=== PATIENT | male | born 1935 | race Caucasian/White ===

== ENCOUNTER → 2017-09-30 10:27 | Outpatient (CLI) | payer MEDICARE, BC, SELFPAY | PROVIDERS: Visit Provider Urology | DX: N40.0 Benign prostatic hyperplasia without lower urinary tract symptoms (principal) | CPT/HCPCS: 36415; 84153; G0103 ==

== ENCOUNTER → 2017-12-09 08:22 | Outpatient (CLI) | payer MEDICARE, BC, SELFPAY ==
--- NOTE | 2017-12-09 08:25 | US_ITS ---
US urinary bladder CLINICAL INDICATION: ITS.REASON: URINARY RETENTION ORDERING PHYSICIAN: Nina Hobbs MD PATIENT AGE: 82 years Comparison: None FINDINGS: Look for urinary bladder volume is 441 mL's. There is persistent rounded area of isoechogenicity along the lower aspect the urinary bladder on the left. This may represent a urinary bladder mass or an enlarged prostate compressing upon the infra aspect of the urinary bladder . The prostate is enlarged. The post void urinary bladder volume is 12 mL. IMPRESSION: 1. No significant postvoid residual urine. 2. There is a soft tissue mass along the lower aspect of urinary bladder on the left measuring approximately 4 x 4 centimeters. This is contiguous with an enlarged prostate and may represent compression of the urinary bladder from an enlarged prostate or prostate mass. A mass within the urinary bladder is also a consideration.
== END ==
PROVIDERS: Family Provider Family Medicine; PCP Family Medicine; Visit Provider Family Medicine
DX: N40.1 Benign prostatic hyperplasia with lower urinary tract symptoms (principal)
CPT/HCPCS: 76857

== ENCOUNTER → 2018-08-23 11:20 | Outpatient (CLI) | payer MEDICARE, BC, SELFPAY ==
--- NOTE | 2018-08-23 11:33 | XR_ITS ---
XR chest 2V HISTORY: Shortness of breath ITS.REASON: SOB ORDERING PHYSICIAN: Lashonda Barahona APRN PATIENT AGE: 83 years COMPARISON: 02/20/2014 FINDINGS: Prior CABG. Cardiac pacemaker device is present with biventricular lead, AICD, and a right atrial lead. Normal heart size. Lungs are clear. No acute bony findings. IMPRESSION: Postsurgical changes with pacemaker present, no acute finding
== END ==
PROVIDERS: PCP Family Medicine; Visit Provider Nurse Practitioner
DX: R06.02 Shortness of breath (principal)
CPT/HCPCS: 71046; 93005

== ENCOUNTER → 2018-08-26 13:51 | Outpatient (CLI) | payer MEDICARE, BC, SELFPAY | PROVIDERS: PCP Family Medicine; Visit Provider Family Medicine | DX: R06.02 Shortness of breath (principal) | CPT/HCPCS: 93225; 93226 ==

== ENCOUNTER 2018-10-01 05:26 | Emergency (ER) | payer MEDICARE, BC, SELFPAY ==
[2018-10-01 05:35] VITALS: BP 122/55; PULSE 50; RESP 16; TEMP 36.9; O2SAT 97; BMI 25.7
[2018-10-01 06:02] LABS: Basophils % 0.3 % (0.1-2.0); Eosinophils # 0.1 K/mm3 (0.0-0.4); Eosinophils % 1.6 % (0.1-12.0); Hematocrit 38.2 % (42.0-52.0); Hemoglobin 12.6 g/dL (14.1-18.0); Lymphocytes # 1.1 K/mm3 (0.7-4.5); Lymphocytes % 12.1 % (10-50); Mean Corpuscular Hemoglobin 27.8 pg (27.0-31.2); Mean Corpuscular Volume 84.5 fl (80-94); Monocytes # 0.7 K/mm3 (0.1-1.0); Monocytes % 7.7 % (1.7-9.3); Neutrophils # 7.1 K/mm3 (1.8-7.8); Neutrophils % 78.3 % (37.0-80.0); Platelet Count 151 K/mm3 (142-424); Red Blood Count 4.52 M/mm3 (4.60-6.20); Red Cell Distribution Width 13.8 % (11.5-17.5); White Blood Count 9.1 K/mm3 (4.8-10.8)
[2018-10-01 06:04] LABS: Microscopic, Urine URINE MICROSCOPIC (MICROSCOPIC)
[2018-10-01 06:07] LABS: Appearance,Urine CLOUDY (Clear); Bilirubin,Urine Negative (Negative); Blood, Urine 3+ (Negative); Color,Urine YELLOW (Yellow); Glucose,Urine (UA) Negative (Negative); Ketones,Urine Negative (Negative); Leukocyte Esterase,Urine 3+ (Negative); Nitrate,Urine POSITIVE (Negative); Protein,Urine 2+ (Negative); Urobilinogen,Urine 0.2 EU/dl (0.2)
[2018-10-01 06:14] LABS: Bacteria,Urine 4+ /lpf; RBC,Urine 20-50 #/hpf (0-3); WBC,Urine TNTC #/hpf (0-3)
[2018-10-01 06:15] LABS: Alanine Aminotransferase 22 U/L (12-78); Albumin Level 3.3 gm/dL (3.4-5.0); Albumin/Globulin Ratio 1.1 (1.1-1.8); Alkaline Phosphatase 83 U/L (46-116); Anion Gap 15.6 mEq/L (5-15); Aspartate Amino Transferase 19 U/L (15-37); Bilirubin,Total 1.1 mg/dL (0.2-1.0); Blood Urea Nitrogen 18 mg/dL (7-18); Calcium 8.9 mg/dL (8.5-10.1); Carbon Dioxide 22 mmol/L (21.0-32.0); Chloride 104 mmol/L (98-107); Creatinine Clearance Estimated 60 mL/min (50-200); Creatinine,Serum 1.14 mg/dL (0.70-1.30); Estimated Glomerular Filt Rate 61 ml/min (>60); GFR (African American) 74 ML/MIN (>60); Glucose 122 mg/dL (74-106); Potassium 3.6 mmoL/L (3.5-5.1); Sodium 138 mmol/L (136-145); Total Protein,Serum 6.3 gm/dL (6.4-8.2)
--- NOTE | 2018-10-01 06:38 | HMH.EDUROGM ---
ED Disposition Clinical Impression: UTI (urinary tract infection) Qualifiers: Urinary tract infection type: acute cystitis Hematuria presence: without hematuria Qualified Code(s): N30.00 - Acute cystitis without hematuria Disposition: Home, Self-Care Condition on Discharge: Good Instructions: DI for Urinary Tract Infection (UTI) Additional Instructions: use meds and call pcp for culture results wednesday Prescriptions: cephALEXin [Keflex 500mg Cap] 500 mg PO TID #30 cap Referrals: Nina Hobbs MD [Primary Care Provider] - - Critical Care Critical Care Time: No Attestation: On 10/01/18, the high probability of a clinically significant, sudden or life threatening deterioration of the following system(s) required my full and direct attention, intervention and personal management. The time I documented below is in addition to time spent performing reported procedures but includes the following listed in this critical care notation. Medical Decision Making - Medical Records Medical records reviewed: Yes: I reviewed the patient's medical records. - Caio Inquiry Pt receiving controlled substance: No Vital Signs: 10/01/18 05:35 Temperature 98.4 F Temperature Source Oral Pulse Rate [Right] 50 L Respiratory Rate 16 Blood Pressure [Right Arm] 122/55 L Blood Pressure Mean [Right Arm] 77 Blood Pressure Source [Right Arm] Automatic Cuff Blood Pressure Position [Right Arm] Sitting 02 Sat by Pulse Oximetry 97 Oxygen Delivery Method Room Air - Lab Data Lab results reviewed: Yes: I reviewed the patient's lab results. Lab Results 10/01/18 05:50: WBC 9.1, RBC 4.52 L, Hgb 12.6 L, Hct 38.2 L, MCV 84.5, MCH 27.8, MCHC 33.0, RDW 13.8, Plt Count 151, MPV 8.0, Neut % (Auto) 78.3, Lymph % (Auto) 12.1, [place] % (Auto) 7.7, Eos % (Auto) 1.6, Baso % (Auto) 0.3, Neut # (Auto) 7.1, Lymph # (Auto) 1.1, [place] # (Auto) 0.7, Eos # (Auto) 0.1, Baso # (Auto) 0.0 10/01/18 05:50: Sodium 138, Potassium 3.6, Chloride 104, Carbon Dioxide 22, Anion Gap 15.6 H, BUN 18, Creatinine 1.14, Estimated Creat Clear 60, Estimated GFR 61, Est GFR ( Amer) 74, Glucose 122 H, Calcium 8.9, Total Bilirubin 1.1 H, AST 19, ALT 22, Alkaline Phosphatase 83, Total Protein 6.3 L, Albumin 3.3 L, Globulin 3.0, Albumin/Globulin Ratio 1.1 10/01/18 05:55: Urine Color Yellow, Urine Appearance Cloudy, Urine pH 6.0, Ur Specific [place] 1.010, Urine Protein 2+, Urine Glucose (UA) Negative, Urine Ketones Negative, Urine Blood 3+, Urine Nitrate Positive, Urine Bilirubin Negative, Urine Urobilinogen 0.2, Ur Leukocyte Esterase 3+ A, Urine RBC 20-50, Urine WBC Tntc, Urine Bacteria 4+ Result diagrams: 10/01/18 05:50 10/01/18 05:50 Orders (Tests/Meds): ED MEDICATIONS Generic Name Dose Route Start Last Admin Trade Name Freq PRN Reason Stop Dose Admin Sodium Chloride 1,000 mls @ 999 mls/hr 10/01/18 05:45 10/01/18 06:06 Sod Chlor 0.9% 1000ml Bag IV 10/01/18 06:45 999 mls/hr .Q1H1M SHAY Administration Ceftriaxone Sodium 1 gm/ 50 mls @ 100 mls/hr 10/01/18 06:25 10/01/18 06:26 Sodium Chloride IV 10/01/18 06:54 100 mls/hr ONCE ONE Administration Protocol ORDERS Category Date Time Status Urine Culture Stat Micro 10/01/18 05:55 Received Male Urogenital HPI - General Chief complaint: Urogenital-Male Stated complaint: difficulty urinating with burning Time Seen by Provider: 10/01/18 05:45 Mode of Arrival: Ambulatory Source of Information: Patient, Medical Record Limitations: No Limitations Description of Symptoms (Recalled from ER Triage Doc. by RN): Pt c/o decreased urine output and burning with urination - History of Present Illness HPI Narrative: pain with urination - no gross hematuria MD Complaint: dysuria Onset (ago): hour(s) Severity: moderate Reports: denies other symptoms - Related Data Home Medications Medication Instructions Recorded Confirmed meclizine 12.5 mg tablet 12.5 mg PO BID PRN tab 09/30
--- NOTE | 2018-10-01 06:41 | ED_ITS ---
ED Disposition Clinical Impression: UTI (urinary tract infection) Qualifiers: Urinary tract infection type: acute cystitis Hematuria presence: without hematuria Qualified Code(s): N30.00 - Acute cystitis without hematuria Disposition: Home, Self-Care Condition on Discharge: Good Instructions: DI for Urinary Tract Infection (UTI) Additional Instructions: use meds and call pcp for culture results wednesday Prescriptions: cephALEXin [Keflex 500mg Cap] 500 mg PO TID #30 cap Referrals: Nina Hobbs MD [Primary Care Provider] - - Critical Care Critical Care Time: No Attestation: On 10/01/18, the high probability of a clinically significant, sudden or life threatening deterioration of the following system(s) required my full and direct attention, intervention and personal management. The time I documented below is in addition to time spent performing reported procedures but includes the following listed in this critical care notation. Medical Decision Making - Medical Records Medical records reviewed: Yes: I reviewed the patient's medical records. - Caio Inquiry Pt receiving controlled substance: No Vital Signs: 10/01/18 05:35 Temperature 98.4 F Temperature Source Oral Pulse Rate [Right] 50 L Respiratory Rate 16 Blood Pressure [Right Arm] 122/55 L Blood Pressure Mean [Right Arm] 77 Blood Pressure Source [Right Arm] Automatic Cuff Blood Pressure Position [Right Arm] Sitting 02 Sat by Pulse Oximetry 97 Oxygen Delivery Method Room Air - Lab Data Lab results reviewed: Yes: I reviewed the patient's lab results. Lab Results 10/01/18 05:50: WBC 9.1, RBC 4.52 L, Hgb 12.6 L, Hct 38.2 L, MCV 84.5, MCH 27.8, MCHC 33.0, RDW 13.8, Plt Count 151, MPV 8.0, Neut % (Auto) 78.3, Lymph % (Auto) 12.1, [place] % (Auto) 7.7, Eos % (Auto) 1.6, Baso % (Auto) 0.3, Neut # (Auto) 7.1, Lymph # (Auto) 1.1, [place] # (Auto) 0.7, Eos # (Auto) 0.1, Baso # (Auto) 0.0 10/01/18 05:50: Sodium 138, Potassium 3.6, Chloride 104, Carbon Dioxide 22, Anion Gap 15.6 H, BUN 18, Creatinine 1.14, Estimated Creat Clear 60, Estimated GFR 61, Est GFR ( Amer) 74, Glucose 122 H, Calcium 8.9, Total Bilirubin 1.1 H, AST 19, ALT 22, Alkaline Phosphatase 83, Total Protein 6.3 L, Albumin 3.3 L, Globulin 3.0, Albumin/Globulin Ratio 1.1 10/01/18 05:55: Urine Color Yellow, Urine Appearance Cloudy, Urine pH 6.0, Ur Specific [place] 1.010, Urine Protein 2+, Urine Glucose (UA) Negative, Urine Ketones Negative, Urine Blood 3+, Urine Nitrate Positive, Urine Bilirubin Negative, Urine Urobilinogen 0.2, Ur Leukocyte Esterase 3+ A, Urine RBC 20-50, Urine WBC Tntc, Urine Bacteria 4+ Result diagrams: 10/01/18 05:50 10/01/18 05:50 Orders (Tests/Meds): ED MEDICATIONS Generic Name Dose Route Start Last Admin Trade Name Freq PRN Reason Stop Dose Admin Sodium Chloride 1,000 mls @ 999 mls/hr 10/01/18 05:45 10/01/18 06:06 Sod Chlor 0.9% 1000ml Bag IV 10/01/18 06:45 999 mls/hr .Q1H1M SHAY Administration Ceftriaxone Sodium 1 gm/ 50 mls @ 100 mls/hr 10/01/18 06:25 10/01/18 06:26 Sodium Chloride IV 10/01/18 06:54 100 mls/hr ONCE ONE Administration Protocol ORDERS Category Date Time Status Urin
[2018-10-01 06:47] VITALS: BP 128/56; PULSE 52; RESP 14; TEMP 36.9; O2SAT 97
== END 2018-10-01 07:03 | disposition home or self-care (01) ==
PROVIDERS: Emergency Provider Emergency Medicine; PCP Family Medicine
DX: N30.01 Acute cystitis with hematuria (principal); I25.10 Atherosclerotic heart disease of native coronary artery without angina pectoris; Z95.0 Presence of cardiac pacemaker
CPT/HCPCS: 80053; 81001; 85025; 87086; 87088; 87186; 96365; 96367; 99283

== ENCOUNTER 2018-10-05 21:38 | Outpatient (CLI) | payer MEDICARE, BC, SELFPAY ==
[2018-10-05 22:10] VITALS: BP 140/101; PULSE 56; RESP 19; TEMP 36.4; O2SAT 97
--- NOTE | 2018-10-05 22:50 | PC.NURSE ---
#16 Leyva cath anchored per Dr. Vu.
[2018-10-05 23:15] VITALS: BP 142/72; PULSE 72; RESP 16; TEMP 36.8; O2SAT 97
[2018-10-05 23:19] VITALS: BMI 59.3
[2018-10-05 23:33] LABS: Microscopic, Urine URINE MICROSCOPIC (MICROSCOPIC)
[2018-10-05 23:35] LABS: Appearance,Urine CLEAR (Clear); Bilirubin,Urine Negative (Negative); Blood, Urine 3+ (Negative); Color,Urine YELLOW (Yellow); Glucose,Urine (UA) Negative (Negative); Ketones,Urine Negative (Negative); Leukocyte Esterase,Urine 1+ (Negative); Nitrate,Urine Negative (Negative); Protein,Urine Negative (Negative); Urobilinogen,Urine 0.2 EU/dl (0.2)
[2018-10-05 23:44] LABS: Amorphous Sediment,Urine Trace /lpf; RBC,Urine 50-100 #/hpf (0-3)
== END 2018-10-05 23:19 | disposition home or self-care (01) ==
LOC: ER 22:35 → INF 23:53
PROVIDERS: PCP Family Medicine; Visit Provider Emergency Medicine
DX: R39.9 Unspecified symptoms and signs involving the genitourinary system (principal)
CPT/HCPCS: 81001; 87086; G0463

== ENCOUNTER 2019-09-09 07:45 | Emergency (ER) | payer MEDICARE, BC, SELFPAY ==
[2019-09-09 07:53] VITALS: BP 134/70; PULSE 70; RESP 16; TEMP 36.5; O2SAT 98; BMI 25.7
--- NOTE | 2019-09-09 08:02 | HMH.EDGENADL ---
ED Disposition Clinical Impression: UTI (urinary tract infection) Qualifiers: Urinary tract infection type: acute cystitis Hematuria presence: with hematuria Qualified Code(s): N30.01 - Acute cystitis with hematuria Disposition: Home, Self-Care Condition on Discharge: Good Instructions: DI for Urinary Tract Infection (UTI), DI for Hematuria Additional Instructions: Omnicef as prescribed. Follow-up with Dr. Higgins in the office, call Wednesday to schedule appointment. Additional instructions for URINARY TRACT INFECTION: See your physician next week for follow up and culture results. Return immediately if you have an uncontrollable fever greater than 102 degrees, severe back or abdominal pain, inability to urinate, or repetitive vomiting. Prescriptions: Cefdinir [Omnicef 300mg Capsule] 300 mg PO BID #20 cap Transmission Status: Pending to [facility] Referrals: Nina Hobbs MD [Primary Care Provider] - - Critical Care Critical Care Time: No Attestation: On 09/09/19, the high probability of a clinically significant, sudden or life threatening deterioration of the following system(s) required my full and direct attention, intervention and personal management. The time I documented below is in addition to time spent performing reported procedures but includes the following listed in this critical care notation. Medical Decision Making - Medical Records Medical records reviewed: Yes: I reviewed the patient's medical records. MR Comment: Prior urine C/S results reviewed. Most recent office visit note from Dr. Higgins reviewed. Reviewed the last abdomen/pelvic CT result September 2018. - Caio Inquiry Pt receiving controlled substance: No Vital Signs: 09/09/19 07:53 Temperature 97.7 F Temperature Source Oral Pulse Rate [Left Radial] 70 Respiratory Rate 16 Blood Pressure [Right Arm] 134/70 Blood Pressure Mean [Right Arm] 91 Blood Pressure Position [Right Arm] Sitting 02 Sat by Pulse Oximetry 98 Oxygen Delivery Method Room Air - Lab Data Lab results reviewed: Yes: I reviewed the patient's lab results. Lab Results 09/09/19 07:55: Urine Color [place], Urine Appearance Sl cloudy, Urine pH 5.5, Ur Specific [place] 1.025, Urine Protein 2+, Urine Glucose (UA) Negative, Urine Ketones Negative, Urine Blood 3+, Urine Nitrate Positive, Urine Bilirubin Negative, Urine Urobilinogen 0.2, Ur Leukocyte Esterase Trace, Urine RBC 20-50, Urine WBC 5-10, Ur Squamous Epith Cells Occasional, Urine Bacteria 2+ 09/09/19 08:16: WBC 5.8, RBC 4.68, Hgb 14.1, Hct 41.6 L, MCV 88.9, MCH 30.2, MCHC 34.0, RDW 14.2, Plt Count 141 L, MPV 7.9, Neut % (Auto) 68.0, Lymph % (Auto) 23.4, [place] % (Auto) 5.7, Eos % (Auto) 1.7, Baso % (Auto) 1.2, Neut # (Auto) 3.9, Lymph # (Auto) 1.4, [place] # (Auto) 0.3, Eos # (Auto) 0.1, Baso # (Auto) 0.1 09/09/19 08:16: PT 22.6 H, INR 2.26 H 09/09/19 08:16: Sodium 138, Potassium 4.1, Chloride 109 H, Carbon Dioxide 24, Anion Gap 9.1, BUN 17, Creatinine 0.90, Estimated Creat Clear 67, Estimated GFR 80, Est GFR ( Amer) 97, Glucose 95, Calcium 9.4 Result diagrams: 09/09/19 08:16 09/09/19 08:16 Orders (Tests/Meds): ED MEDICATIONS Discontinued Medications Generic Name Dose Route Start Last Admin Trade Name [place] PRN Reason Stop Dose Admin Ceftriaxone Sodium 1 gm/ 50 mls @ 100 mls/hr 09/09/19 08:29 09/09/19 08:34 Sodium Chloride IV 09/09/19 08:58 100 mls/hr ONCE ONE Administration Protocol ORDERS Category Date Time Status Urine Culture Stat Micro 09/09/19 07:55 Received General Adult HPI - General Chief complaint: Urogenital-Male Stated complaint: kidney problems Time Seen by Provider: 09/09/19 08:02 Mode of Arrival: Ambulatory Limitations: No Limitations Description of Symptoms (Recalled from ER Triage Doc. by RN): to ed per pvt car with c/o burning with urination, lower back pain, urinary frequency, and hematuria starting yesterday. denies fever, chills, naus
[2019-09-09 08:05] LABS: Microscopic, Urine URINE MICROSCOPIC (MICROSCOPIC)
[2019-09-09 08:08] LABS: Appearance,Urine SL CLOUDY (Clear); Blood, Urine 3+ (Negative); Color,Urine ORANGE (Yellow); Glucose,Urine (UA) Negative (Negative); Ketones,Urine Negative (Negative); Leukocyte Esterase,Urine TRACE (Negative); Nitrate,Urine POSITIVE (Negative); PH,Urine 5.5 (5.0-8.5); Protein,Urine 2+ (Negative); Specific Gravity, Urine 1.025 (1.005-1.030); Urobilinogen,Urine 0.2 EU/dl (0.2)
[2019-09-09 08:20] LABS: Bilirubin,Urine Negative (Negative)
[2019-09-09 08:21] LABS: Bacteria,Urine 2+ /lpf; RBC,Urine 20-50 #/hpf (0-3); Squamous Epithelial Cell,Urine Occasional #/hpf (0-5)
[2019-09-09 08:30] LABS: Chloride 109 mmol/L (98-107); Potassium 4.1 mmoL/L (3.5-5.1); Sodium 138 mmol/L (136-145)
[2019-09-09 08:32] LABS: Basophils # 0.1 K/mm3 (0-0.2); Basophils % 1.2 % (0.1-2.0); Eosinophils # 0.1 K/mm3 (0.0-0.4); Eosinophils % 1.7 % (0.1-12.0); Hematocrit 41.6 % (42.0-52.0); Hemoglobin 14.1 g/dL (14.1-18.0); Lymphocytes # 1.4 K/mm3 (0.7-4.5); Lymphocytes % 23.4 % (10-50); Mean Corpuscular Hemoglobin 30.2 pg (27.0-31.2); Mean Corpuscular Volume 88.9 fl (80-94); Mean Platelet Volume 7.9 fl (7.4-10.4); Monocytes # 0.3 K/mm3 (0.1-1.0); Monocytes % 5.7 % (1.7-9.3); Neutrophils # 3.9 K/mm3 (1.8-7.8); Platelet Count 141 K/mm3 (142-424); Red Blood Count 4.68 M/mm3 (4.60-6.20); Red Cell Distribution Width 14.2 % (11.5-17.5); White Blood Count 5.8 K/mm3 (4.8-10.8)
[2019-09-09 08:33] LABS: Blood Urea Nitrogen 17 mg/dl (9-20); Creatinine Clearance Estimated 67 mL/min (50-200); Estimated Glomerular Filt Rate 80 ml/min (>60); GFR (African American) 97 ML/MIN (>60)
[2019-09-09 08:34] LABS: Anion Gap 9.1 mEq/L (5-15); Calcium 9.4 mg/dl (8.4-10.2); Carbon Dioxide 24 mmol/L (22.0-30.0); Glucose 95 mg/dl (74-100); INR 2.26 (0.9-1.1); Prothrombin Time 22.6 seconds (9.4-11.8)
[2019-09-09 09:29] VITALS: BP 128/78; PULSE 78; RESP 16; TEMP 36.6; O2SAT 98
== END 2019-09-09 09:30 | disposition home or self-care (01) ==
PROVIDERS: Emergency Provider Emergency Medicine; PCP Family Medicine
DX: N30.01 Acute cystitis with hematuria (principal); I25.10 Atherosclerotic heart disease of native coronary artery without angina pectoris; Z95.0 Presence of cardiac pacemaker; Z79.01 Long term (current) use of anticoagulants; Z87.891 Personal history of nicotine dependence
CPT/HCPCS: 80048; 81001; 85025; 85610; 87086; 96365; 99283

== ENCOUNTER 2019-09-14 04:14 | Emergency (ER) | payer MEDICARE, BC, SELFPAY ==
[2019-09-14 04:39] VITALS: BMI 25.6
[2019-09-14 04:42] VITALS: BP 149/80; PULSE 58; RESP 16; TEMP 36.6; O2SAT 97; BMI 25.6
[2019-09-14 05:02] LABS: Microscopic, Urine URINE MICROSCOPIC (MICROSCOPIC)
[2019-09-14 05:08] LABS: Appearance,Urine CLEAR (Clear); Bilirubin,Urine Negative (Negative); Blood, Urine 3+ (Negative); Color,Urine YELLOW (Yellow); Glucose,Urine (UA) Negative (Negative); Ketones,Urine Negative (Negative); Leukocyte Esterase,Urine TRACE (Negative); Nitrate,Urine Negative (Negative); Protein,Urine 2+ (Negative); Urobilinogen,Urine 0.2 EU/dl (0.2)
[2019-09-14 05:19] LABS: Basophils % 0.4 % (0.1-2.0); Eosinophils # 0.1 K/mm3 (0.0-0.4); Eosinophils % 1.3 % (0.1-12.0); Hematocrit 39.8 % (42.0-52.0); Hemoglobin 13.7 g/dL (14.1-18.0); Lymphocytes % 13.7 % (10-50); Mean Corpuscular HGB Conc 34.4 g/dL (31.8-35.4); Mean Corpuscular Hemoglobin 30.4 pg (27.0-31.2); Mean Corpuscular Volume 88.4 fl (80-94); Mean Platelet Volume 7.8 fl (7.4-10.4); Monocytes # 0.4 K/mm3 (0.1-1.0); Monocytes % 5.4 % (1.7-9.3); Neutrophils # 5.7 K/mm3 (1.8-7.8); Neutrophils % 79.1 % (37.0-80.0); Platelet Count 137 K/mm3 (142-424); Red Blood Count 4.51 M/mm3 (4.60-6.20); Red Cell Distribution Width 14.3 % (11.5-17.5); White Blood Count 7.2 K/mm3 (4.8-10.8)
--- NOTE | 2019-09-14 05:50 | PC.NURSE ---
called lab and asked for status on labs and UA.
[2019-09-14 05:57] LABS: Bacteria,Urine Trace /lpf; RBC,Urine 50-100 #/hpf (0-3); Squamous Epithelial Cell,Urine Occasional #/hpf (0-5); WBC,Urine Occasional #/hpf (0-3)
[2019-09-14 05:57] LABS: Alanine Aminotransferase 18 U/L (12-78); Albumin Level 4.2 g/dl (3.5-5.0); Albumin/Globulin Ratio 1.6 (1.1-1.8); Alkaline Phosphatase 83 U/L (38-126); Anion Gap 11.8 mEq/L (5-15); Aspartate Amino Transferase 39 U/L (17-59); Bilirubin,Total 0.9 mg/dl (0.2-1.3); Blood Urea Nitrogen 17 mg/dl (9-20); Calcium 9.7 mg/dl (8.4-10.2); Carbon Dioxide 22 mmol/L (22.0-30.0); Chloride 105 mmol/L (98-107); Creatinine Clearance Estimated 67 mL/min (50-200); Estimated Glomerular Filt Rate 80 ml/min (>60); GFR (African American) 97 ML/MIN (>60); Globulin 2.7 g/dL (1.3-3.2); Glucose 123 mg/dl (74-100); Potassium 3.8 mmoL/L (3.5-5.1); Sodium 135 mmol/L (136-145); Total Protein,Serum 6.9 g/dl (6.3-8.2)
--- NOTE | 2019-09-14 06:01 | PC.NURSE ---
Huber cath leaking around meatus, huber dc'd with 1000 ml red urine out.
--- NOTE | 2019-09-14 06:12 | PC.NURSE ---
lab stated Coags would take a few more minutes from having to QC the machine.
--- NOTE | 2019-09-14 06:17 | PC.NURSE ---
pt able to void 200 ml at this time
[2019-09-14 06:28] VITALS: BP 126/72; PULSE 76; RESP 16; O2SAT 98
--- NOTE | 2019-09-14 06:54 | PC.NURSE ---
called and spoke to shreya in lab about Coag results. she state the machine still wasnt QC and it would be about another 30 minutes for results
--- NOTE | 2019-09-14 06:56 | HMH.EDUROGM ---
ED Disposition Clinical Impression: Acute urinary retention Disposition: Home, Self-Care Condition on Discharge: Good Instructions: DI for Urinary Retention in Men Additional Instructions: call dr evans for follow up Referrals: Nina Hobbs MD [Primary Care Provider] - Kg Evans MD [Staff Physician] - - Critical Care Critical Care Time: No Attestation: On 09/14/19, the high probability of a clinically significant, sudden or life threatening deterioration of the following system(s) required my full and direct attention, intervention and personal management. The time I documented below is in addition to time spent performing reported procedures but includes the following listed in this critical care notation. Medical Decision Making - Medical Records Medical records reviewed: Yes: I reviewed the patient's medical records. - Caio Inquiry Pt receiving controlled substance: No Vital Signs: 09/14/19 04:42 09/14/19 06:28 Temperature 97.8 F Temperature Source Oral Pulse Rate [Right] 58 L 76 Respiratory Rate 16 16 Blood Pressure [Right Arm] 149/80 H 126/72 Blood Pressure Mean [Right Arm] 103 90 Blood Pressure Source [Right Arm] Automatic Cuff Automatic Cuff Blood Pressure Position [Right Arm] Sitting Supine 02 Sat by Pulse Oximetry 97 98 Oxygen Delivery Method Room Air Room Air - Lab Data Lab results reviewed: Yes: I reviewed the patient's lab results. Lab Results 09/14/19 04:38: Urine Color Yellow, Urine Appearance Clear, Urine pH 6.0, Ur Specific [place] 1.010, Urine Protein 2+, Urine Glucose (UA) Negative, Urine Ketones Negative, Urine Blood 3+, Urine Nitrate Negative, Urine Bilirubin Negative, Urine Urobilinogen 0.2, Ur Leukocyte Esterase Trace, Urine RBC 50-100, Urine WBC Occasional, Ur Squamous Epith Cells Occasional, Urine Bacteria Trace 09/14/19 05:00: WBC 7.2, RBC 4.51 L, Hgb 13.7 L, Hct 39.8 L, MCV 88.4, MCH 30.4, MCHC 34.4, RDW 14.3, Plt Count 137 L, MPV 7.8, Neut % (Auto) 79.1, Lymph % (Auto) 13.7, [place] % (Auto) 5.4, Eos % (Auto) 1.3, Baso % (Auto) 0.4, Neut # (Auto) 5.7, Lymph # (Auto) 1.0, [place] # (Auto) 0.4, Eos # (Auto) 0.1, Baso # (Auto) 0.0 09/14/19 05:00: PT 20.5 H, INR 2.08 H 09/14/19 05:00: Sodium 135 L, Potassium 3.8, Chloride 105, Carbon Dioxide 22, Anion Gap 11.8, BUN 17, Creatinine 0.90, Estimated Creat Clear 67, Estimated GFR 80, Est GFR ( Amer) 97, Glucose 123 H, Calcium 9.7, Total Bilirubin 0.9, AST 39, ALT 18, Alkaline Phosphatase 83, Total Protein 6.9, Albumin 4.2, Globulin 2.7, Albumin/Globulin Ratio 1.6 Result diagrams: 09/14/19 05:00 09/14/19 05:00 Orders (Tests/Meds): ED MEDICATIONS Generic Name Dose Route Start Last Admin Trade Name Freq PRN Reason Stop Dose Admin Sodium Chloride 1,000 mls @ 999 mls/hr 09/14/19 05:00 09/14/19 05:10 Sod Chlor 0.9% 1000ml Bag IV 09/14/19 06:00 999 mls/hr .Q1H1M SHAY Administration - Reevaluation(s) Time: 07:02 Reevaluation #1: feels better after huber Male Urogenital HPI - General Chief complaint: Urogenital-Male Stated complaint: Difficulty urinating and passing blood Time Seen by Provider: 09/14/19 05:15 Mode of Arrival: Ambulatory Source of Information: Patient, Medical Record Limitations: No Limitations Description of Symptoms (Recalled from ER Triage Doc. by RN): Pt states he has not been able to urinate tonight and has a strong urgency to urinate, pt has urine cath at home, but was afraid to use them because he has been passing small clots. - History of Present Illness HPI Narrative: hx of prostate dis and inability to urinate - occ blood clots MD Complaint: other (urinary retention ) Onset (ago): hour(s) Duration: constant Severity: moderate Reports: urinary retention - Related Data Sexually active: No Home Medications Medication Instructions Recorded Confirmed meclizine 12.5 mg tablet 12.5 mg PO BID PRN tab 09/30/17 09/14/19 metoprolol tartrate 25 mg tablet 25 mg
--- NOTE | 2019-09-14 07:20 | PC.NURSE ---
called lab about Coags. spoke with shreya who said it would be another 10 minutes.
[2019-09-14 07:28] LABS: INR 2.08 (0.9-1.1); Prothrombin Time 20.5 seconds (9.4-11.8)
[2019-09-14 07:51] VITALS: BP 144/72; PULSE 72; RESP 16; TEMP 36.6; O2SAT 98
== END 2019-09-14 07:53 | disposition home or self-care (01) ==
PROVIDERS: Emergency Provider Emergency Medicine; PCP Family Medicine
DX: N40.1 Benign prostatic hyperplasia with lower urinary tract symptoms (principal); R33.8 Other retention of urine; I25.10 Atherosclerotic heart disease of native coronary artery without angina pectoris; Z95.0 Presence of cardiac pacemaker; Z87.891 Personal history of nicotine dependence; Z79.899 Other long term (current) drug therapy
CPT/HCPCS: 80053; 81001; 85025; 85610; 96365; 99284

== ENCOUNTER → 2019-09-28 08:37 | Outpatient (CLI) | payer MEDICARE, BC, SELFPAY ==
--- NOTE | 2019-09-28 08:37 | CT_ITS ---
PROCEDURE: CT ABDOMEN PELVIS WO/W CON CLINICAL INDICATION: gross hematuria Gross hematuria, difficulty urinating COMPARISON: [facility]LE V[facility] pelvis wo con from 10/02/2018 TECHNIQUE: IV Contrast: 75ML OPTIRAY 350 Oral Contrast 450ml Redicat Axial images obtained with sagittal and coronal reformats. All CT scans at the facility use one or more dose reduction, viz: automated exposure control, ma/kV adjustment per patient size (including targeted exams where dose is matched to indication, i.e. head), or iterative reconstruction technique. FINDINGS: LOWER THORAX: COPD with scattered areas of scarring and evidence of old granulomatous disease. 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 No focal liver lesion is evident. The spleen, adrenal glands, and pancreas have an unremarkable appearance. There is thickening at the GE junction. This is nonspecific and may be better evaluated with upper GI or upper endoscopy. There has been a prior cholecystectomy. There is a 3.5 cm mass along the medial aspect of the right kidney superiorly with rim like calcification. This shows intense enhancement on the portal phase images and is consistent with a renal artery aneurysm which is not significantly changed in size since the previous exam but has slightly increased in size since 09/27/2017 now measuring 4.3 x 3.6 cm previously measuring 4.1 x 3.2 cm on 09/27/2017. There is no evidence of acute retroperitoneal hemorrhage. No renal calculi are evident. There is a benign-appearing cyst along the upper pole of the left kidney at 1.9 cm. The No intestinal obstruction or free air. No evidence of appendicitis. There are scattered colonic diverticula but no evidence of diverticulitis there is minimal ectasia of the infrarenal abdominal aorta at 2.6 cm. There is marked enlargement of the prostate gland measuring 7.3 cm AP, 6.8 cm transverse, and 8 cm cephalad caudad. The superior aspect of the prostate is impinging/indenting upon the lower aspect of the urinary bladder and may actually be invading the urinary bladder. This could also be due to a a separate lesion/neoplasm within the urinary bladder. Cystoscopy suggested for further evaluation. Seminal vesicles are also prominent. There is a small left inguinal hernia which contains fat. No acute bony anomalies. IMPRESSION: 1. Thickening of the GE junction. Consider upper endoscopy or upper GI for further evaluation. 2. 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 Enlarged prostate with indentation or invasion along the inferior aspect of the urinary bladder. Cystoscopy suggested for further evaluation. Soft tissue density is noted within the inferior aspect of the bladder contiguous with the large prostate and may be indentation or of from the prostate versus a separate contiguous lesion in the urinary bladder such as carcinoma. Dictated by: Jesus Lisa MD 09/29/2019 10:39 Electronically signed by Jesus Lisa MD in [place] 09/29/2019 10:39
== END ==
PROVIDERS: PCP Family Medicine; Visit Provider Urology
DX: R31.0 Gross hematuria (principal)
CPT/HCPCS: 36415; 74178; 82565; 84153; 84154; 84520; Q9967

== ENCOUNTER → 2019-09-28 08:52 | Outpatient (CLI) | payer MEDICARE, BC, SELFPAY ==
[2019-09-28 09:26] LABS: Blood Urea Nitrogen 15 mg/dl (9-20); Estimated Glomerular Filt Rate 80 ml/min (>60); GFR (African American) 97 ML/MIN (>60)
[2019-09-29 11:18] LABS: PSA, Free 1.11 ng/mL; Prostate Specific Ag 3.8 ng/mL (0.0-4.0)
== END ==
PROVIDERS: Visit Provider Urology
DX: R97.20 Elevated prostate specific antigen [PSA] (principal); R31.0 Gross hematuria
CPT/HCPCS: 36415; 82565; 84153; 84154; 84520

== ENCOUNTER → 2019-10-04 08:12 | Outpatient (CLI) | payer MEDICARE, BC, SELFPAY ==
[2019-10-04 11:25] LABS: Coronavirus 19 IgG Antibody Negative (Negative); Coronavirus 19 IgM Antibody Negative (Negative)
== END ==
LOC: LAB 04-09 00:11 → LAB.DROPOF 10-02 16:50
PROVIDERS: Visit Provider Urology
DX: Z01.818 Encounter for other preprocedural examination (principal); R31.9 Hematuria, unspecified
CPT/HCPCS: 36415; 86328

== ENCOUNTER 2019-10-05 13:10 | Day surgery (SDC) | payer MEDICARE, BC, SELFPAY ==
[2019-10-03 09:38] VITALS: BMI 24.8
[2019-10-05 13:34] VITALS: BP 131/64; PULSE 77; RESP 18; TEMP 36.7; O2SAT 98
[2019-10-05 14:26] LABS: Microscopic, Urine URINE MICROSCOPIC (MICROSCOPIC)
[2019-10-05 14:29] LABS: Appearance,Urine CLOUDY (Clear); Bilirubin,Urine Negative (Negative); Blood, Urine 2+ (Negative); Color,Urine YELLOW (Yellow); Glucose,Urine (UA) Negative (Negative); Ketones,Urine Negative (Negative); Leukocyte Esterase,Urine 3+ (Negative); Nitrate,Urine Negative (Negative); Protein,Urine Negative (Negative); Specific Gravity, Urine <= 1.005 (1.005-1.030); Urobilinogen,Urine 0.2 EU/dl (0.2)
[2019-10-05 14:42] LABS: Bacteria,Urine 2+ /lpf; WBC,Urine TNTC #/hpf (0-3)
[2019-10-05 14:51] VITALS: BP 111/71; PULSE 74; RESP 20; TEMP 36.8; O2SAT 98
--- NOTE | 2019-10-05 16:42 | HMH.OPNOTE ---
Date of procedure: 10/05/19 Pre-op Diagnosis:: Gross hematuria/BPH with obstruction Post-op Diagnosis:: Same Procedure performed:: Flexible cystoscopy Surgeon:: Kg Higgins MD Anesthesia: local Estimated blood loss (mL): 0 Clinical Note:: 84-year-old white male with recurrent hematuria and history of very large prostate status post previous TURP. 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 He was prepped and draped in standard surgical fashion and 2% lidocaine placed into the urethra and clamped for 5 minutes. For 5 minutes the flexible cystoscope introduced into the urethral meatus. Passed to the prostatic urethra which was long and tortuous and showed some persistent adenoma throughout. There was a knuckle of prostate tissue from the 3 to 5 o'clock position at the bladder neck and a large amount of prostate tissue extending into the bladder obscuring the ureteral orifices. There was severe trabeculation throughout the bladder. There was evidence of a prior TUR defect but there was still significant prostate tissue emanating as I said at the bladder neck and also from the 9 o'clock position more towards the verumontanum. The scope removed patient tolerated procedure well. We discussed the findings today and I have discussed repeating a TURP to clean up the rest of the obstructing tissue but Mr. Loyd does not wish to proceed with that at this point. He was mainly interested to make sure there was not any evidence of bladder cancer and saw no evidence of that. His hematuria has improved with the addition of finasteride so he will continue that and I will see him back in the office in a few weeks in follow-up. Condition: stable Disposition: same day Specimens:: None Complications:: None
== END 2019-10-05 14:51 | disposition home or self-care (01) ==
PROVIDERS: PCP Family Medicine; Visit Provider Urology
PROC: (CPT 52000; principal; 2019-10-05 14:00)
DX: N40.1 Benign prostatic hyperplasia with lower urinary tract symptoms (principal); N13.8 Other obstructive and reflux uropathy; R31.0 Gross hematuria; Z98.890 Other specified postprocedural states; I25.10 Atherosclerotic heart disease of native coronary artery without angina pectoris; K82.9 Disease of gallbladder, unspecified; Z95.0 Presence of cardiac pacemaker; Z88.5 Allergy status to narcotic agent; Z79.01 Long term (current) use of anticoagulants; Z79.899 Other long term (current) drug therapy; M19.90 Unspecified osteoarthritis, unspecified site; Z87.891 Personal history of nicotine dependence
CPT/HCPCS: 52000; 81001; 87086; 87088; 87186

== ENCOUNTER → 2019-10-26 14:31 | Outpatient (CLI) | payer MEDICARE, BC, SELFPAY | PROVIDERS: Visit Provider Urology | DX: N39.0 Urinary tract infection, site not specified (principal) | CPT/HCPCS: 87086; 87088 ==

== ENCOUNTER 2019-11-14 18:52 | Emergency (ER) | payer MEDICARE, BC, SELFPAY ==
[2019-11-14 18:52] VITALS: BP 148/85; PULSE 73; RESP 17; TEMP 36.7; O2SAT 97; BMI 24.4
--- NOTE | 2019-11-14 19:11 | CT_ITS ---
PROCEDURE: CT ABDOMEN PELVIS WO CON CLINICAL INDICATION: hematuria. Generalized abdominal pain. History of enlarged prostate. Patient has had prostate surgery in the past. COMPARISON: CT abdomen/pelvis: 09/28/2019 TECHNIQUE: Axial images obtained with sagittal and coronal reformats. All CT scans at the facility use one or more dose reduction, viz: automated exposure control, ma/kV adjustment per patient size (including targeted exams where dose is matched to indication, i.e. head), or iterative reconstruction technique. FINDINGS: LOWER THORAX: No acute finding. Possible COPD. A few small calcified nodules/granulomas and posteriorly linea atelectasis is seen in the visualized right lung base. ABDOMEN & PELVIS: Hepatobiliary: There is decreased attenuation of the liver, consistent with steatosis. No discrete hepatic mass/lesion is seen on this noncontrast exam. The gallbladder is surgically absent. Unremarkable biliary ductal system. Pancreas: No demonstrated pancreatic mass or cyst. Spleen: The spleen is not enlarged. 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 A 1.7 centimeter exophytic simple appearing cyst is also again seen from the upper pole of the left kidney. Neither kidney shows calculi or evidence of hydronephrosis Both ureters have normal course and caliber. There is a distended urinary bladder with diffuse wall thickening demonstrated likely due to chronic bladder outlet obstruction from an enlarged prostate. No ureteral or bladder calculi are identified. Gastrointestinal: The stomach and small bowel are normal with no obstruction or evidence of inflammation. The large bowel is within normal limits. Moderate amount of retained fecal debris is seen. Reproductive organs: An enlarged lobulated prostate that extends superiorly into the bladder lumen is again seen. Lymphatic system: There is no significant adenopathy demonstrated within the abdomen/pelvis. Vasculature: There is significant atherosclerotic vascular disease with a diffuse plaque formation of the abdominal aorta and branch vessels. Normal caliber of the abdominal aorta. Peritoneum: No free fluid, free air or evidence of inflammation is seen. Abdominal wall and musculoskeletal: Moderate-sized fat containing umbilical and left inguinal hernias and few small ventral abdominal wall hernias superiorly containing fat are again seen. Moderate degenerative disc/endplate disease changes are seen at L2-L3, L4-L5 and L5-S1 levels. IMPRESSION: 1.Redemonstrated an enlarged lobulated prostate with elevation/extension into the bladder lumen. 2. Urinary bladder wall thickening, could be due to chronic bladder outlet obstruction or cystitis. 3. Neither kidney shows calculi or evidence of hydronephrosis. No evidence of obstructive nephropathy. 4. Hepatic steatosis. Prior cholecystectomy. Atherosclerotic vascular disease. 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 Dictated by: Betty Duffy 11/15/2019 08:44 Electronically signed by Betty Duffy in [facility] 11/15/2019 08:44
[2019-11-14 19:19] LABS: Microscopic, Urine URINE MICROSCOPIC (MICROSCOPIC)
[2019-11-14 19:21] LABS: Basophils % 0.5 % (0.1-2.0); Eosinophils # 0.1 K/mm3 (0.0-0.4); Eosinophils % 1.8 % (0.1-12.0); Hematocrit 39.2 % (42.0-52.0); Hemoglobin 13.6 g/dL (14.1-18.0); Lymphocytes # 1.7 K/mm3 (0.7-4.5); Lymphocytes % 25.8 % (10-50); Mean Corpuscular HGB Conc 34.7 g/dL (31.8-35.4); Mean Corpuscular Hemoglobin 30.6 pg (27.0-31.2); Mean Corpuscular Volume 88.2 fl (80-94); Mean Platelet Volume 8.3 fl (7.4-10.4); Monocytes # 0.3 K/mm3 (0.1-1.0); Monocytes % 4.5 % (1.7-9.3); Neutrophils # 4.5 K/mm3 (1.8-7.8); Neutrophils % 67.4 % (37.0-80.0); Platelet Count 135 K/mm3 (142-424); Red Blood Count 4.44 M/mm3 (4.60-6.20); Red Cell Distribution Width 14.1 % (11.5-17.5); White Blood Count 6.7 K/mm3 (4.8-10.8)
[2019-11-14 19:37] LABS: Appearance,Urine CLEAR (Clear); Bilirubin,Urine Negative (Negative); Blood, Urine 3+ (Negative); Chloride 106 mmol/L (98-107); Color,Urine YELLOW (Yellow); Glucose,Urine (UA) Negative (Negative); Ketones,Urine Negative (Negative); Leukocyte Esterase,Urine 2+ (Negative); Nitrate,Urine POSITIVE (Negative); Protein,Urine TRACE (Negative); Sodium 141 mmol/L (136-145); Specific Gravity, Urine 1.025 (1.005-1.030); Urobilinogen,Urine 0.2 EU/dl (0.2)
[2019-11-14 19:40] LABS: Alanine Aminotransferase 21 U/L (12-78); Albumin Level 3.8 g/dl (3.5-5.0); Albumin/Globulin Ratio 1.5 (1.1-1.8); Alkaline Phosphatase 82 U/L (38-126); Amylase 97 U/L (30-110); Aspartate Amino Transferase 34 U/L (17-59); Bilirubin,Total 0.6 mg/dl (0.2-1.3); Blood Urea Nitrogen 16 mg/dl (9-20); Calcium 9.5 mg/dl (8.4-10.2); Carbon Dioxide 25 mmol/L (22.0-30.0); Creatinine Clearance Estimated 58 mL/min (50-200); Estimated Glomerular Filt Rate 64 ml/min (>60); GFR (African American) 77 ML/MIN (>60); Globulin 2.6 g/dL (1.3-3.2); Glucose 144 mg/dl (74-100); Lipase 86 U/L (23-300); Total Protein,Serum 6.4 g/dl (6.3-8.2)
[2019-11-14 19:43] LABS: RBC,Urine 20-50 #/hpf (0-3)
[2019-11-14 19:44] LABS: Bacteria,Urine Trace /lpf; INR 1.88 (0.9-1.1); Prothrombin Time 18.5 seconds (9.4-11.8)
[2019-11-14 19:48] VITALS: BP 128/71; PULSE 70; RESP 18; O2SAT 96
[2019-11-14 20:06] VITALS: BP 133/65; PULSE 77; RESP 18; O2SAT 94
--- NOTE | 2019-11-14 20:06 | HMH.EDGENADL ---
ED Disposition Clinical Impression: Gross hematuria, Cystitis, Prostatic hypertrophy Umbilical hernia Qualifiers: Obstruction and gangrene presence: without obstruction or gangrene Qualified Code(s): K42.9 - Umbilical hernia without obstruction or gangrene Disposition: Home Health Service Condition on Discharge: Good Instructions: DI for Urinary Tract Infection (UTI) Additional Instructions: Call Dr. Higgins tomorrow for further follow-up. Begin taking your antibiotic twice a day as prescribed. Follow-up with your primary care provider regarding your umbilical hernia for possible surgical referral. Additional instructions for URINARY TRACT INFECTION: See your physician in 2-3 days for follow up and culture results. Return immediately if you have an uncontrollable fever greater than 102 degrees, severe back or abdominal pain, inability to urinate, or repetitive vomiting. Additional instructions for ABDOMINAL PAIN: See your physician as soon as possible for further evaluation. Return immediately if worsening abdominal pain, vomiting, shortness of breath, fever, vomiting of blood or abdominal distention. Referrals: Nina Hobbs MD [Primary Care Provider] - - Critical Care Critical Care Time: No Attestation: On 11/14/19, the high probability of a clinically significant, sudden or life threatening deterioration of the following system(s) required my full and direct attention, intervention and personal management. The time I documented below is in addition to time spent performing reported procedures but includes the following listed in this critical care notation. Medical Decision Making - Medical Records Medical records reviewed: Yes: I reviewed the patient's medical records. - Caio Inquiry Pt receiving controlled substance: No Vital Signs: 11/14/19 18:52 11/14/19 19:48 11/14/19 20:06 Temperature 98.1 F Temperature Source Oral Pulse Rate Pulse Rate [Right] 73 70 77 Respiratory Rate 17 18 18 Blood Pressure Blood Pressure [Right Arm] 148/85 H 128/71 133/65 Blood Pressure Mean [Right Arm] 106 90 87 Blood Pressure Source Blood Pressure Position 02 Sat by Pulse Oximetry 97 96 94 L Oxygen Delivery Method Room Air Room Air 11/14/19 20:27 Temperature 98.1 F Temperature Source Oral Pulse Rate 72 Pulse Rate [Right] Respiratory Rate 15 Blood Pressure 121/76 Blood Pressure [Right Arm] Blood Pressure Mean [Right Arm] Blood Pressure Source Automatic Cuff Blood Pressure Position Sitting 02 Sat by Pulse Oximetry Oxygen Delivery Method Room Air - Lab Data Lab results reviewed: Yes: I reviewed the patient's lab results. Lab Results 11/14/19 19:12: Urine Color Yellow, Urine Appearance Clear, Urine pH 6.0, Ur Specific Custer 1.025, Urine Protein Trace, Urine Glucose (UA) Negative, Urine Ketones Negative, Urine Blood 3+, Urine Nitrate Positive, Urine Bilirubin Negative, Urine Urobilinogen 0.2, Ur Leukocyte Esterase 2+ A, Urine RBC 20-50, Urine WBC 10-20, Ur Squamous Epith Cells 3-5, Urine Bacteria Trace 11/14/19 19:12: WBC 6.7, RBC 4.44 L, Hgb 13.6 L, Hct 39.2 L, MCV 88.2, MCH 30.6, MCHC 34.7, RDW 14.1, Plt Count 135 L, MPV 8.3, Neut % (Auto) 67.4, Lymph % (Auto) 25.8, Johnson % (Auto) 4.5, Eos % (Auto) 1.8, Baso % (Auto) 0.5, Neut # (Auto) 4.5, Lymph # (Auto) 1.7, Johnson # (Auto) 0.3, Eos # (Auto) 0.1, Baso # (Auto) 0.0 11/14/19 19:12: Sodium 141, Potassium 4.0, Chloride 106, Carbon Dioxide 25, Anion Gap 14.0, BUN 16, Creatinine 1.10, Estimated Creat Clear 58, Estimated GFR 64, Est GFR ( Amer) 77, Glucose 144 H, Calcium 9.5, Total Bilirubin 0.6, AST 34, ALT 21, Alkaline Phosphatase 82, Total Protein 6.4, Albumin 3.8, Globulin 2.6, Albumin/Globulin Ratio 1.5, Amylase 97, Lipase 86 11/14/19 19:12: PT 18.5 H, INR 1.88 H Result diagrams: 11/14/19 19:12 11/14/19 19:12 Orders (Tests/Meds): ED MEDICATIONS Discontinued Medications Generic Name Dose Route Start Last
[2019-11-14 20:27] VITALS: BP 121/76; PULSE 72; RESP 15; TEMP 36.7; O2SAT 95
== END 2019-11-14 20:36 | disposition home health service (06) ==
PROVIDERS: Emergency Medicine; Emergency Provider Emergency Medicine; PCP Family Medicine
DX: N30.01 Acute cystitis with hematuria (principal); K42.9 Umbilical hernia without obstruction or gangrene; N40.0 Benign prostatic hyperplasia without lower urinary tract symptoms; I25.10 Atherosclerotic heart disease of native coronary artery without angina pectoris; E78.5 Hyperlipidemia, unspecified; I10 Essential (primary) hypertension; Z87.891 Personal history of nicotine dependence; R73.9 Hyperglycemia, unspecified; Z79.899 Other long term (current) drug therapy
CPT/HCPCS: 74176; 80053; 81001; 82150; 83690; 85025; 85610; 87086; 87088; 87186; 99284

== ENCOUNTER → 2020-01-15 13:59 | Outpatient (POV) | payer MEDICARE, BC, SELFPAY | PROVIDERS: Visit Provider Nurse Practitioner Family | DX: Z00.00 Encounter for general adult medical examination without abnormal findings (principal) ==

== ENCOUNTER → 2020-05-02 11:26 | Outpatient (CLI) | payer MEDICARE, BC, SELFPAY ==
[2020-05-03 10:05] LABS: PSA, Free 0.58 ng/mL; Prostate Specific Ag 1.8 ng/mL (0.0-4.0)
== END ==
PROVIDERS: Visit Provider Urology
DX: R97.20 Elevated prostate specific antigen [PSA] (principal)
CPT/HCPCS: 36415; 84153; 84154

== ENCOUNTER → 2020-09-10 11:18 | Outpatient (CLI) | payer MEDICARE, BC, SELFPAY ==
[2020-09-10 12:40] LABS: Prostate Specific Ag, Diagnost 1.57 ng/ml (0.0-4.0)
== END ==
PROVIDERS: Visit Provider Urology
DX: N40.0 Benign prostatic hyperplasia without lower urinary tract symptoms (principal); R97.20 Elevated prostate specific antigen [PSA]
CPT/HCPCS: 36415; 84153

== ENCOUNTER → 2021-01-10 13:28 | Outpatient (CLI) | payer MEDICARE, BC, SELFPAY ==
--- NOTE | 2021-01-10 13:40 | XR_ITS ---
PROCEDURE: XR RIBS RT 2V CLINICAL INDICATION: RT RIB PAIN COMPARISON: No exams were available for comparison FINDINGS: No fracture or dislocation. No lytic or blastic change. Calcifications noted within the subcutaneous tissue laterally on the right. IMPRESSION: Negative right ribs Dictated by: Jesus Lisa MD 01/10/2021 14:48 Jesus Lisa MD in [facility] 01/10/2021 14:48
--- NOTE | 2021-01-10 13:41 | XR_ITS ---
PROCEDURE: XR CHEST 2V CLINICAL HISTORY: RT RIB PAIN COMPARISON: CR CXR1 CHEST-PORTABLE from 02/20/[address] ABDOMEN PELVIS WO CON from 11/14/2019 FINDINGS: There has been a prior CABG. Normal heart size. There are 2 right ventricular and 1 left ventricular and 1 right atrial pacemaker wires present from the right subclavian approach. COPD changes the. No lobar consolidation or collapse. No evidence of pneumothorax. No acute bony findings. No acute bony abnormalities. IMPRESSION: Prior CABG with multiple pacer wires present with COPD. Dictated by: Jesus Lisa MD 01/10/2021 14:46 Jesus Lisa MD in [facility] 01/10/2021 14:46
== END ==
PROVIDERS: PCP Family Medicine; Visit Provider Family Medicine
DX: R07.81 Pleurodynia (principal)
CPT/HCPCS: 71046; 71100

== ENCOUNTER → 2021-09-11 11:28 | Outpatient (CLI) | payer MEDICARE, BC, SELFPAY ==
[2021-09-11 13:09] LABS: Prostate Specific Ag Screen 1.6 ng/ml (0.0-4.0)
== END ==
PROVIDERS: Visit Provider Urology
DX: Z12.5 Encounter for screening for malignant neoplasm of prostate (principal)
CPT/HCPCS: 36415; G0103

== ENCOUNTER → 2021-11-01 08:47 | Outpatient (CLI) | payer MEDICARE, BC, SELFPAY ==
[2021-10-31 18:32] LABS: Chloride 104 mmol/L (98-107)
[2021-10-31 18:33] LABS: Potassium 4.3 mmoL/L (3.5-5.1); Sodium 137 mmol/L (136-145)
[2021-10-31 18:35] LABS: Alanine Aminotransferase 23 U/L (12-78); Alkaline Phosphatase 80 U/L (38-126); Aspartate Amino Transferase 39 U/L (17-59); Blood Urea Nitrogen 19 mg/dl (9-20); Estimated Glomerular Filt Rate 80 ml/min (>60); GFR (African American) 97 ML/MIN (>60)
[2021-10-31 18:36] LABS: Albumin Level 4.1 g/dl (3.5-5.0); Albumin/Globulin Ratio 1.7 (1.1-1.8); Anion Gap 12.3 mEq/L (5-15); Calcium 9.7 mg/dl (8.4-10.2); Carbon Dioxide 25 mmol/L (22.0-30.0); Globulin 2.4 g/dL (1.3-3.2); Glucose 110 mg/dl (74-100); Total Protein,Serum 6.5 g/dl (6.3-8.2)
[2021-10-31 19:03] LABS: Thyroid Stimulating Hormone 2.75 uIU/mL (0.465-4.68)
== END ==
PROVIDERS: PCP Family Medicine; Visit Provider Family Medicine
DX: I10 Essential (primary) hypertension; R60.0 Localized edema
CPT/HCPCS: 80053; 84443

== ENCOUNTER → 2021-11-15 09:19 | Outpatient (CLI) | payer MEDICARE, BC, SELFPAY ==
[2021-11-14 14:24] LABS: INR 2.29 (0.9-1.1); Prothrombin Time 24.3 seconds (10.1-12.5)
[2021-11-14 14:57] LABS: Chloride 110 mmol/L (98-107); Potassium 4.7 mmoL/L (3.5-5.1); Sodium 142 mmol/L (136-145)
[2021-11-14 14:59] LABS: Blood Urea Nitrogen 20 mg/dl (9-20)
[2021-11-14 15:00] LABS: Alanine Aminotransferase 19 U/L (12-78); Albumin Level 3.9 g/dl (3.5-5.0); Albumin/Globulin Ratio 1.6 (1.1-1.8); Alkaline Phosphatase 93 U/L (38-126); Anion Gap 10.7 mEq/L (5-15); Aspartate Amino Transferase 35 U/L (17-59); Bilirubin,Total 0.4 mg/dl (0.2-1.3); Carbon Dioxide 26 mmol/L (22.0-30.0); Estimated Glomerular Filt Rate 80 ml/min (>60); GFR (African American) 97 ML/MIN (>60); Globulin 2.5 g/dL (1.3-3.2); Total Protein,Serum 6.4 g/dl (6.3-8.2)
[2021-11-14 15:01] LABS: Glucose 125 mg/dl (74-100)
== END ==
PROVIDERS: PCP Family Medicine; Visit Provider Family Medicine
DX: N40.0 Benign prostatic hyperplasia without lower urinary tract symptoms (principal); R60.9 Edema, unspecified; Z51.81 Encounter for therapeutic drug level monitoring; Z79.01 Long term (current) use of anticoagulants
CPT/HCPCS: 80053; 85610

== ENCOUNTER → 2021-11-19 06:41 | Outpatient (CLI) | payer MEDICARE, BC, SELFPAY | PROVIDERS: PCP Family Medicine; Visit Provider Family Medicine | DX: N30.01 Acute cystitis with hematuria (principal); B96.29 Other Escherichia coli [E. coli] as the cause of diseases classified elsewhere | CPT/HCPCS: 87086; 87088; 87186 ==

== ENCOUNTER → 2021-12-05 13:40 | Outpatient (CLI) | payer MEDICARE, BC, SELFPAY ==
[2021-12-05 15:52] LABS: INR 2.14 (0.9-1.1); Prothrombin Time 22.9 seconds (10.1-12.5)
== END ==
PROVIDERS: PCP Family Medicine; Visit Provider Family Medicine
DX: R60.9 Edema, unspecified (principal); Z79.01 Long term (current) use of anticoagulants; Z51.81 Encounter for therapeutic drug level monitoring
CPT/HCPCS: 85610

== ENCOUNTER → 2022-01-23 11:19 | Outpatient (CLI) | payer MEDICARE, BC, SELFPAY ==
[2022-01-23 14:18] LABS: Prothrombin Time 28.5 seconds (10.1-12.5)
[2022-01-23 19:06] LABS: Basophils % 0.5 % (0.1-2.0); Eosinophils # 0.1 K/mm3 (0.0-0.4); Eosinophils % 1.5 % (0.1-12.0); Hematocrit 39.3 % (42.0-52.0); Hemoglobin 12.7 g/dL (14.1-18.0); Lymphocytes # 1.4 K/mm3 (0.7-4.5); Lymphocytes % 17.1 % (10-50); Mean Corpuscular HGB Conc 32.4 g/dL (31.8-35.4); Mean Corpuscular Hemoglobin 30.7 pg (27.0-31.2); Mean Corpuscular Volume 94.8 fl (80-94); Mean Platelet Volume 10.4 fl (7.4-10.4); Monocytes # 0.5 K/mm3 (0.1-1.0); Monocytes % 6.1 % (1.7-9.3); Neutrophils # 6.3 K/mm3 (1.8-7.8); Neutrophils % 74.9 % (37.0-80.0); Platelet Count 125 K/mm3 (142-424); Red Blood Count 4.15 M/mm3 (4.60-6.20); Red Cell Distribution Width 13.7 % (11.5-17.5); White Blood Count 8.4 K/mm3 (4.8-10.8)
[2022-01-23 19:39] LABS: Chloride 105 mmol/L (98-107); Potassium 4.2 mmoL/L (3.5-5.1); Sodium 140 mmol/L (136-145)
[2022-01-23 19:42] LABS: Alanine Aminotransferase 35 U/L (12-78); Albumin Level 3.9 g/dl (3.5-5.0); Albumin/Globulin Ratio 1.6 (1.1-1.8); Alkaline Phosphatase 108 U/L (38-126); Anion Gap 14.2 mEq/L (5-15); Aspartate Amino Transferase 50 U/L (17-59); Bilirubin,Total 0.7 mg/dl (0.2-1.3); Blood Urea Nitrogen 16 mg/dl (9-20); Carbon Dioxide 25 mmol/L (22.0-30.0); Estimated Glomerular Filt Rate 92 ml/min (>60); GFR (African American) 111 ML/MIN (>60); Globulin 2.4 g/dL (1.3-3.2); Total Protein,Serum 6.3 g/dl (6.3-8.2)
[2022-01-23 19:43] LABS: Calcium 8.9 mg/dl (8.4-10.2); Glucose 135 mg/dl (74-100)
== END ==
PROVIDERS: Visit Provider Family Medicine
DX: E78.5 Hyperlipidemia, unspecified (principal); K91.840 Postprocedural hemorrhage of a digestive system organ or structure following a digestive system procedure; Z79.01 Long term (current) use of anticoagulants; R33.8 Other retention of urine; Z51.81 Encounter for therapeutic drug level monitoring
CPT/HCPCS: 80053; 85025; 85610

== ENCOUNTER → 2022-04-14 15:10 | Outpatient (CLI) | payer MEDICARE, BC, SELFPAY ==
[2022-04-14 18:44] LABS: Alanine Aminotransferase 21 U/L (12-78); Albumin/Globulin Ratio 1.7 (1.1-1.8); Alkaline Phosphatase 97 U/L (38-126); Anion Gap 10.8 mEq/L (5-15); Aspartate Amino Transferase 36 U/L (17-59); Bilirubin,Total 0.8 mg/dl (0.2-1.3); Blood Urea Nitrogen 13 mg/dl (9-20); Calcium 9.8 mg/dl (8.4-10.2); Carbon Dioxide 25 mmol/L (22.0-30.0); Chloride 109 mmol/L (98-107); Estimated Glomerular Filt Rate 63 ml/min (>60); GFR (African American) 77 ML/MIN (>60); Globulin 2.3 g/dL (1.3-3.2); Glucose 117 mg/dl (74-100); Potassium 3.8 mmoL/L (3.5-5.1); Sodium 141 mmol/L (136-145); Total Protein,Serum 6.3 g/dl (6.3-8.2)
== END ==
PROVIDERS: PCP Family Medicine; Visit Provider Family Medicine
DX: E87.70 Fluid overload, unspecified (principal); I50.9 Heart failure, unspecified
CPT/HCPCS: 80053

== ENCOUNTER → 2022-04-21 12:45 | Outpatient (CLI) | payer MEDICARE, BC, SELFPAY ==
[2022-04-21 20:12] LABS: Alanine Aminotransferase 18 U/L (12-78); Albumin Level 4.2 g/dl (3.5-5.0); Albumin/Globulin Ratio 1.8 (1.1-1.8); Alkaline Phosphatase 90 U/L (38-126); Anion Gap 13.4 mEq/L (5-15); Aspartate Amino Transferase 31 U/L (17-59); Blood Urea Nitrogen 22 mg/dl (9-20); Calcium 9.5 mg/dl (8.4-10.2); Carbon Dioxide 25 mmol/L (22.0-30.0); Chloride 105 mmol/L (98-107); Estimated Glomerular Filt Rate 71 ml/min (>60); GFR (African American) 86 ML/MIN (>60); Globulin 2.4 g/dL (1.3-3.2); Glucose 109 mg/dl (74-100); Potassium 4.4 mmoL/L (3.5-5.1); Sodium 139 mmol/L (136-145); Total Protein,Serum 6.6 g/dl (6.3-8.2)
== END ==
PROVIDERS: PCP Family Medicine; Visit Provider Family Medicine
DX: E87.70 Fluid overload, unspecified (principal)
CPT/HCPCS: 80053

== ENCOUNTER → 2022-05-13 13:24 | Outpatient (CLI) | payer MEDICARE, BC, SELFPAY ==
--- NOTE | 2022-05-13 13:28 | CT_ITS ---
FINAL REPORT TECHNIQUE: After the administration of IV contrast, axial images through the pelvis was performed by computed tomography. Sagittal and coronal reformatted images were obtained and reviewed. This study was performed with techniques to keep radiation doses as low as reasonably achievable (ALARA). Individualized dose reduction techniques using automated exposure control or adjustment of mA and/or kV according to the patient's size were employed. CLINICAL HISTORY: right leg edema patient stated he has been on a fluid pill and is doing better with the right lower leg edema FINDINGS: No pelvic adenopathy is identified. The IVC and iliac veins are distended. The patency of these vascular structures cannot be readily assessed due to phase of contrast enhancement. The bladder is distended with mild bladder wall thickening. There is a lobulated mass within the bladder base may be due to bladder mass or extension of prostate into the bladder. There is severe prostate enlargement. There is a small left inguinal hernia containing fat. There are superficial varices in the left upper thigh. IMPRESSION: No pelvic adenopathy. Nonspecific distension of iliac veins, venous hypertension is not excluded. Bladder base mass, could be a bladder or prostatic in origin. Reviewed, Interpreted and Dictated by Nina Davis MD Transcribed by Jennifer Patel Authenticated and [facility]
== END ==
PROVIDERS: PCP Family Medicine; Visit Provider Family Medicine
DX: N40.0 Benign prostatic hyperplasia without lower urinary tract symptoms (principal)
CPT/HCPCS: 72193; Q9967

== ENCOUNTER → 2022-08-18 23:26 | Outpatient (CLI) | payer MEDICARE, BC, SELFPAY ==
[2022-08-18 18:34] LABS: Chloride 99 mmol/L (98-107); Sodium 139 mmol/L (136-145)
[2022-08-18 18:35] LABS: Potassium 3.9 mmoL/L (3.5-5.1)
[2022-08-18 18:37] LABS: Blood Urea Nitrogen 16 mg/dl (9-20); Estimated Glomerular Filt Rate 80 ml/min (>60); GFR (African American) 97 ML/MIN (>60)
[2022-08-18 18:38] LABS: Anion Gap 16.9 mEq/L (5-15); Calcium 9.4 mg/dl (8.4-10.2); Carbon Dioxide 27 mmol/L (22.0-30.0); Glucose 82 mg/dl (74-100)
== END ==
PROVIDERS: PCP Family Medicine; Visit Provider Family Medicine
DX: E87.70 Fluid overload, unspecified (principal); I50.9 Heart failure, unspecified; Z79.01 Long term (current) use of anticoagulants
CPT/HCPCS: 80048

== ENCOUNTER → 2023-01-26 08:22 | Outpatient (CLI) | payer MEDICARE, BC, SELFPAY ==
[2023-01-26 19:25] LABS: Blood Urea Nitrogen 19 mg/dl (9-20); Calcium 9.3 mg/dl (8.4-10.2); Carbon Dioxide 25 mmol/L (22.0-30.0); Chloride 106 mmol/L (98-107); Estimated Glomerular Filt Rate 80 ml/min (>60); GFR (African American) 97 ML/MIN (>60); Glucose 95 mg/dl (74-100); Sodium 139 mmol/L (136-145)
== END ==
PROVIDERS: PCP Family Medicine; Visit Provider Family Medicine
DX: Z79.01 Long term (current) use of anticoagulants (principal); Z51.81 Encounter for therapeutic drug level monitoring
CPT/HCPCS: 80048

== ENCOUNTER 2023-02-07 08:18 | Emergency (ER) | payer MEDICARE, BC, SELFPAY ==
[2023-02-07 08:20] VITALS: BP 148/90; PULSE 100; RESP 18; TEMP 36.6; O2SAT 98; BMI 25.4
--- NOTE | 2023-02-07 08:48 | EXP.UTC ---
Discharge Plan Disposition Patient Disposition: Home, Self-Care Condition: Good Prescriptions Prescriptions: New amoxicillin [amoxicillin] 875 mg tablet 875 mg PO Q12H Qty: 20 0RF prednisone 10 mg tablet 10 mg PO BID 4 Days Qty: 8 0RF benzonatate [benzonatate] 100 mg capsule 100 mg PO TIDP PRN (Reason: Cough) Qty: 30 0RF No Action tamsulosin 0.4 mg capsule,extended release 24hr 0.4 mg PO DAILY meclizine 12.5 mg tablet 12.5 mg PO BID PRN (Reason: Dizziness) nitroglycerin 0.3 mg tablet, sublingual 0.3 mg SUBLINGUAL Q5-15M PRN (Reason: Chest Pain) furosemide 40 mg tablet 40 mg PO DAILY Qty: 30 4RF finasteride 5 mg tablet 5 mg PO DAILY metoprolol succinate 25 mg tablet extended release 24 hr 25 mg PO DAILY Qty: 90 1RF levothyroxine 25 mcg tablet 25 mcg PO DAILY Qty: 90 1RF warfarin 5 mg tablet See Rx Instructions .ROUTE .COMPLEX Qty: 20 3RF Dose Instruction: Take 1 tablet on Wednesday and Wednesday's. Take 1/2 Tablet once daily on all other days. Rx Instructions: Take 1 tablet on Wednesday and Wednesday's. Take 1/2 Tablet once daily on all other days. rosuvastatin 20 mg tablet See Rx Instructions .ROUTE .COMPLEX Qty: 90 1RF Dose Instruction: Take 1 tablet by mouth once a day (at bedtime) Rx Instructions: Take 1 tablet by mouth once a day (at bedtime) cholecalciferol (vitamin D3) 2,000 UNIT capsule 2,000 unit PO DAILY cyanocobalamin (vitamin B-12) 2,500 MCG tablet 2,500 mcg PO DAILY Referrals Follow up/Referrals: Nina Hobbs MD [Primary Care Provider] - See instructions Activity Restrictions/Add. Instructions Additional Instructions/Restrictions: Drink plenty of fluids. Take tylenol or ibuprofen for pain or fever. Take the medications as directed. Follow up with your regular doctor. GO TO THE ER FOR ANY WORSENING SYMPTOMS Clinical Impressions Clinical Impression: Sinusitis, Otitis media, Acute viral syndrome, Impacted cerumen, left ear Instructions Patient Instructions: DI for Cerumen Impaction, DI for Sinusitis, DI for Viral Syndrome Discharge ED Provider: Dean GuillaumeH [facility] HPI General Stated complaint: achey, cough, dry mouth, nausea,JUAREZ,runny nose Mode of Arrival: Ambulatory Source of Information: Patient Limitations: No Limitations Time Seen by Provider: 02/07/23 08:48 Description of Symptoms (Recalled from Triage Doc. by RN): body aches, runny nose, cough, JUAREZ HEENT Symptoms (Recalled from RN notes): Yes Resp Symptoms (Recalled from RN notes): No Skin Symptoms (Recalled from RN notes): No MS Symptoms (Recalled from RN notes): No Functional Status (Recalled from RN notes): n/a Related Data Home Medications Medication Instructions Recorded Confirmed meclizine 12.5 mg tablet 12.5 mg PO BID PRN Dizziness 09/30/17 02/07/23 nitroglycerin 0.3 mg sublingual 0.3 mg sublingual Q5-15M PRN Chest 09/30/17 02/03/23 tablet Pain tamsulosin 0.4 mg capsule 0.4 mg PO DAILY prostate 09/30/17 02/07/23 cholecalciferol (vitamin D3) 50 2,000 unit PO DAILY Diet supplement 10/01/18 02/07/23 mcg (2,000 unit) capsule cyanocobalamin (vitamin B-12) 2,500 mcg PO DAILY Diet supplement 10/01/18 02/07/23 2,500 mcg tablet finasteride 5 mg tablet 5 mg PO DAILY 10/31/21 02/07/23 Previous Rx's Medication Instructions Recorded levothyroxine 25 mcg tablet 25 mcg PO DAILY #90 tabs 03/11/22 metoprolol succinate 25 mg 25 mg PO DAILY #90 tabs 04/21/22 tablet,extended release 24 hr furosemide 40 mg tablet 40 mg PO DAILY swelling #30 tabs 08/18/22 warfarin 5 mg tablet See Rx Instructions .Route 10/12/22 .COMPLEX #20 tabs rosuvastatin 20 mg tablet See Rx Instructions .Route 02/03/23 .COMPLEX #90 tabs amoxicillin 875 mg tablet 875 mg PO Q12H #20 tabs 02/07/23 benzonatate 100 mg capsule 100 mg PO TIDP PRN Cough #30 caps 02/07/23 prednisone 10 mg tablet 10 mg PO BID 4 days #8 tabs 02/07/23 Allergies
[2023-02-07 08:49] LABS: UTC Influenza A Antigen Negative (Negative)
[2023-02-07 08:50] LABS: UTC Influenza B Antigen Negative (Negative)
[2023-02-07 09:50] VITALS: BP 148/90; PULSE 100; RESP 18; TEMP 36.6; O2SAT 98
== END 2023-02-07 09:50 | disposition home or self-care (01) ==
PROVIDERS: Emergency Provider Nurse Practitioner Family; PCP Family Medicine
DX: J01.90 Acute sinusitis, unspecified (principal); H66.93 Otitis media, unspecified, bilateral; H61.22 Impacted cerumen, left ear; E03.9 Hypothyroidism, unspecified; I11.0 Hypertensive heart disease with heart failure; I50.9 Heart failure, unspecified; E78.5 Hyperlipidemia, unspecified; Z79.01 Long term (current) use of anticoagulants; Z95.0 Presence of cardiac pacemaker; Z87.891 Personal history of nicotine dependence
CPT/HCPCS: 87804; 99204; 99212; G0463

== ENCOUNTER 2023-12-07 14:46 | Outpatient (CLI) | payer MEDICARE, BC, SELFPAY ==
[2023-12-07 18:49] LABS: Basophils % 0.5 % (0.1-2.0); Eosinophils # 0.1 K/mm3 (0.0-0.4); Hematocrit 43.8 % (42.0-52.0); Hemoglobin 13.6 g/dL (14.1-18.0); Lymphocytes # 1.5 K/mm3 (0.7-4.5); Lymphocytes % 18.7 % (10-50); Mean Corpuscular HGB Conc 31.1 g/dL (31.8-35.4); Mean Corpuscular Hemoglobin 31.7 pg (27.0-31.2); Mean Platelet Volume 9.3 fl (7.4-10.4); Monocytes # 0.5 K/mm3 (0.1-1.0); Monocytes % 6.7 % (1.7-9.3); Neutrophils # 5.8 K/mm3 (1.8-7.8); Neutrophils % 73.1 % (37.0-80.0); Platelet Count 160 K/mm3 (142-424); Red Blood Count 4.29 M/mm3 (4.60-6.20); Red Cell Distribution Width 13.9 % (11.5-17.5)
[2023-12-07 19:33] LABS: Alanine Aminotransferase 19 U/L (12-78); Albumin Level 3.9 g/dl (3.5-5.0); Albumin/Globulin Ratio 1.3 (1.1-1.8); Alkaline Phosphatase 84 U/L (38-126); Anion Gap 10.1 mEq/L (5-15); Aspartate Amino Transferase 31 U/L (17-59); Bilirubin,Total 1.2 mg/dl (0.2-1.3); Blood Urea Nitrogen 23 mg/dl (9-20); Calcium 9.9 mg/dl (8.4-10.2); Carbon Dioxide 28 mmol/L (22.0-30.0); Chloride 105 mmol/L (98-107); Estimated Glomerular Filt Rate 57 ml/min (>60); GFR (African American) 69 ML/MIN (>60); Globulin 2.9 g/dL (1.3-3.2); Glucose 135 mg/dl (74-100); Potassium 4.1 mmoL/L (3.5-5.1); Sodium 139 mmol/L (136-145); Total Protein,Serum 6.8 g/dl (6.3-8.2)
== END 2023-12-07 23:59 | disposition home or self-care (01) ==
LOC: LAB.DROPOF 12-08 14:47
PROVIDERS: PCP Family Medicine; Visit Provider Family Medicine
DX: J06.9 Acute upper respiratory infection, unspecified (principal); E78.5 Hyperlipidemia, unspecified; Z87.891 Personal history of nicotine dependence
CPT/HCPCS: 80053; 85025; 87635

== ENCOUNTER 2024-01-18 09:08 | Outpatient (CLI) | payer MEDICARE, BC, SELFPAY ==
[2024-01-18 20:40] LABS: Chloride 104 mmol/L (98-107)
[2024-01-18 20:41] LABS: Potassium 3.9 mmoL/L (3.5-5.1); Sodium 139 mmol/L (136-145)
[2024-01-18 20:43] LABS: Blood Urea Nitrogen 16 mg/dl (9-20); Estimated Glomerular Filt Rate 80 ml/min (>60); GFR (African American) 96 ML/MIN (>60)
[2024-01-18 20:44] LABS: Anion Gap 12.9 mEq/L (5-15); Calcium 10.2 mg/dl (8.4-10.2); Carbon Dioxide 26 mmol/L (22.0-30.0); Glucose 75 mg/dl (74-100)
== END 2024-01-18 23:59 | disposition home or self-care (01) ==
LOC: LAB.DROPOF 01-19 09:08
PROVIDERS: PCP Family Medicine; Visit Provider Family Medicine
DX: N28.9 Disorder of kidney and ureter, unspecified (principal)
CPT/HCPCS: 80048

== ENCOUNTER 2024-05-02 16:05 | Outpatient (CLI) | payer MEDICARE, BC, SELFPAY ==
[2024-05-02 18:55] LABS: Alanine Aminotransferase 20 U/L (12-78); Albumin Level 4.5 g/dl (3.5-5.0); Alkaline Phosphatase 97 U/L (38-126); Anion Gap 14.6 mEq/L (5-15); Aspartate Amino Transferase 38 U/L (17-59); Bilirubin,Total 1.1 mg/dl (0.2-1.3); Blood Urea Nitrogen 27 mg/dl (9-20); Calcium 9.9 mg/dl (8.4-10.2); Carbon Dioxide 23 mmol/L (22.0-30.0); Chloride 107 mmol/L (98-107); Estimated Glomerular Filt Rate 57 ml/min (>60); GFR (African American) 69 ML/MIN (>60); Globulin 2.3 g/dL (1.3-3.2); Glucose 94 mg/dl (74-100); Potassium 4.6 mmoL/L (3.5-5.1); Sodium 140 mmol/L (136-145); Total Protein,Serum 6.8 g/dl (6.3-8.2)
== END 2024-05-02 23:59 | disposition home or self-care (01) ==
LOC: LAB.DROPOF 05-03 13:54
PROVIDERS: PCP Family Medicine; Visit Provider Family Medicine
DX: N28.9 Disorder of kidney and ureter, unspecified (principal)
CPT/HCPCS: 80053

== ENCOUNTER 2024-05-24 13:43 | Outpatient (POV) | payer MEDICARE, BC, SELFPAY ==
[2024-05-24 14:41] VITALS: BP 113/65; PULSE 58; RESP 18; O2SAT 98; BMI 24.8
--- NOTE | 2024-05-24 14:47 | A.OFFVIS_ITS ---
HPI Data of Consult Patient: new to practice Consult date: 05/24/24 Requesting Physician: Pattie Robles APRN Primary Care Provider: Nina Hobbs MD Consult Narrative Reason for consult: Low back pain, bilateral hip pain History of present illness: Mr. Loyd is a 88 year old male who presents today as a new patient. He is a referral from Roopa Barahona's office. Today he rates his pain a 7 out of 10. Patient states that he has had chronic low back pain for years and does believe a lot of it was more related to arthritis. He states that it typically was somewhat manageable and he could do [id number] medications and it would be tolerable however over the last 3 weeks that has progressively worsened unrelated to any falls or injuries. He states that he felt like he may have twisted something in bed and aggravated it. He states it has been constant ever since and describes it as an aching, throbbing sensation that is all across to his low back and primarily goes into his right hip but does state that it goes into the left as well. He states he has been seen by his primary care and given a muscle relaxer of Flexeril, steroid pack and additional Tylenol with no additional improvement. He has been using a heating pad and doing hot showers that do provide temporary relief. Patient denies any topical use. He states he has had therapy in the past for his neck pain however denies any recent therapies. Patient is very active and does do at home exercise and stretching on a daily basis however has been very limited due to this pain that is now constant. He states it is interfering with his ability perform activities of daily living such as cooking and cleaning. He is interested in any help we may be able to provide. His Caio has been reviewed and is appropriate. CC: Pattie Robles APRN [facility] Disclaimer: The information contained in this section may have been updated after the patient was seen, as this information can be updated by other users. Medical History (Updated 05/24/24 @ 14:50 by Pattie Robles APRN) Bilateral low back pain with right-sided sciatica Rhinitis Renal insufficiency, mild Deep vein thrombosis (DVT) of left lower extremity Traumatic enucleation of right eye URI, acute Crepitus of right temporomandibular joint on opening of jaw Bilateral temporomandibular joint disorder Hearing loss Muscle cramps Pacemaker Arthropathy of knee Localized edema due to fluid overload CHF (congestive heart failure) Hyperlipidemia halfway current use of anticoagulant therapy History of urinary retention History of UTI Hyperlipemia Acquired hypothyroidism Hypertension Anticoagulant disorder Acute urinary retention Surgical History History of prostate surgery History of heart bypass surgery History of hernia repair History of cholecystectomy Family History Other Cancer Diabetes Hyperlipidemia Hypertension Social History (Updated 05/24/24 @ 14:42 by Nisha Bond, RN) Smoking Status: Former smoker tobacco type: cigarettes how long ago did patient quit smokin years ago alcohol intake: former substance use type: denies use current occupational status: retired Travel in the last 8 weeks: None household members: family housing: house current occupational exposures/hazards: No caffeine: Yes Review of Systems Review of Systems Review of systems:: pertinent systems reviewed and negative unless documented below Review of systems (narrative): Review of Systems: General: No recent weight changes, no fever, no sleep disturbances Respiratory: No cough, no shortness of air, no recurring pulmonary infections Cardiovascular/peripheral vascular: No chest pain, no palpitations, no edema, no shortness of breath Gastrointestinal: No new onset incontinence, normal bowel movements reported Genitourinary: No new onset incontinence Musculoskeletal: Low back pain, bilateral hip pain Psychiatric: [Normal mood/affect] Neurological: [Denies weakness in extremities], [denies balance issues] Meds Home Medications and Allergies Home Medications ?Medication ?Instructions ?Recorded ?Confirmed ?Type meclizine 12.5 mg tablet 12.5 mg PO BID PRN Dizziness 09/30/17 05/16/24 History tamsulosin 0.4 mg capsule 0.4 mg PO DAILY prostate 09/30/17 05/16/24 History cholecalciferol (vitamin D3) 50 2,000 unit PO DAILY Diet supplement 10/01/18 05/16/24 History mcg (2,000 unit) capsule cyanocobalamin (vitamin B-12) 2,500 mcg PO DAILY Diet supplement 10/01/18 05/16/24 History 2,500 mcg tablet finasteride 5 mg tablet 5 mg PO DAILY 10/31/21 05/16/24 History apixaban 2.5 mg tablet (Eliquis) mg PO 08/24/23 05/16/24 History albuterol sulfate 90 mcg/actuation 2 puff inhalation Q4-6H PRN 12/02/23 05/16/24 Rx aerosol inhaler shortness of breath or wheezing #8.5 grams rosuvastatin 20 mg tablet See Rx Instructions .Route 01/31/24 05/16/24 Rx .COMPLEX #90 tabs benzonatate 100 mg capsule 100 mg PO TID PRN cough #30 caps 02/10/24 05/16/24 Rx nitroglycerin 0.4 mg sublingual 0.4 mg sublingual Q5M PRN chest 02/11/24 05/16/24 Rx tablet pain #20 tabs levothyroxine 50 mcg capsule 50 mcg PO DAILY thyroid #90 caps 03/21/24 05/16/24 Rx metoprolol succinate 25 mg See Rx Instructions .Route 04/14/24 05/16/24 Rx tablet,extended release 24 hr .COMPLEX #30 tabs fluticasone propionate 50 1 spray intranasal DAILY #16 grams 05/02/24 05/16/24 Rx mcg/actuation nasal spray,suspension furosemide 40 mg tablet See Rx Instructions .Route 05/02/24 05/16/24 Rx .COMPLEX #30 tabs cyclobenzaprine 10 mg tablet 10 mg PO TID PRN muscle spasm #30 05/16/24 05/16/24 Rx tabs dexamethasone 4 mg tablet 4 mg PO BID #10 tabs 05/16/24 05/16/24 Rx ofloxacin 0.3 % ear drops 10 drp otic (ear) BID 7 days #5 mL 05/16/24 05/16/24 Rx New Prescriptions to Start Prescriptions: Allergies Allergy/AdvReac Type Severity Reaction Status Date / Time oxycodone (OXYCODONE) Allergy Unknown HALLUCINATI Verified 05/16/24 11:29 ONS acetaminophen (From Percocet) Allergy Verified 05/16/24 11:29 Objective Narrative: Physical Exam: General: Alert and oriented x3, no acute distress, pleasant and cooperative Lungs: Respirations even and unlabored, symmetrical chest expansion Eyes: PERRL Musculoskeletal: Flexion and extension of lumbar [spine] somewhat guarded secondary to pain, [antalgic gait noted] point tenderness along bilateral SIs with positive bilateral Vida's, Daryl's, Gaenslen's, compression and distraction exam Neurological: Speech clear, no gross sensory deficit Assessment and Plan *Assessment and plan (1) Bilateral sacroiliitis: Status: Acute Category: Medical Code(s): M46.1 - Sacroiliitis, not elsewhere classified (2) Bilateral low back pain with right-sided sciatica: Status: Acute Category: Medical Code(s): M54.41 - Lumbago with sciatica, right side Plan Patient is experiencing worsening pain along the low back and bilateral hips. They did have limited range of motion of the lumbar spine along with point tenderness along bilateral SI joints and a positive bilateral Vida's, Daryl's, Gaenslen's, compression and distraction exam. I did discuss with the patient that I do believe they would benefit from bilateral SI injections. Risk and benefits were discussed with the patient and they would like to proceed forward with this option. Patient has tried and failed conservative therapy including continued at home stretching exercise for longer than 12 weeks. Patient has had longstanding chronic low back pain for longer than a year however it has worsened in severity. Patient has not had any SI injections in the past. I will order the patient a compounded cream and also send in a new muscle relaxer of baclofen 5 mg 3 times daily with a 14-day supply. Patient was counseled to discontinue the Flexeril. Patient will be scheduled for bilateral SI injections under fluoroscopy. Patient has been instructed to contact the clinic with any concerns before the next appointment. Dr. Lambert has reviewed this note and agrees with this plan of care. This note was dictated using voice recognition software and make contain errors or omissions. All injections are used with Lidocaine or Bupivacaine and Depo Medrol.
== END 2024-05-24 23:59 | disposition home or self-care (01) ==
PROVIDERS: PCP Family Medicine; Visit Provider Nurse Practitioner Family
DX: M46.1 Sacroiliitis, not elsewhere classified (principal); M54.41 Lumbago with sciatica, right side; Z73.89 Other problems related to life management difficulty; Z87.891 Personal history of nicotine dependence; Z79.899 Other long term (current) drug therapy
CPT/HCPCS: 99202; G0463

== ENCOUNTER 2024-06-13 09:44 | Day surgery (SDC) | payer MEDICARE, BC, SELFPAY ==
[2024-06-13 09:52] VITALS: BP 132/73; PULSE 86; RESP 16; TEMP 36.5; O2SAT 98; BMI 24.4
--- NOTE | 2024-06-13 10:23 | P.PCN_ITS ---
Procedure Date: 06/13/24 Time: 10:20 Anesthesiologist:: Ammon Mott CRNA Complications:: None Pre-procedure Diagnosis:: Bilateral sacroiliitis Post-procedure Diagnosis:: Same Indications for Procedure:: Patient is a pleasant 89-year-old male who comes our clinic today for bilateral sacroiliac joint injections cortisone and local anesthetic. Patient describes low lumbar back pain off the midline bilaterally. Bilateral posterior hip pain. Difficulty transitioning from sitting to standing. He rates his pain 8/10. Procedure Details:: Procedure: Bilateral sacroiliac joint injections under fluoroscopy Informed consent was obtained and the risks and benefits of the procedure were explained to the patient.~ The patient was taken to the procedure room and noninvasive monitors were placed including a noninvasive blood pressure cuff and pulse oximeter.~ The patient was placed prone on the procedure table. Both hips were cleansed using Betadine as a cleansing solution. C-arm fluoroscopy was used to view the right sacroiliac joint.~ The skin and subcutaneous tissues were anesthetized using lidocaine 1.5% and a 25-gauge needle.~ After this, a 22-gauge spinal needle was inserted under fluoroscopic guidance into the inferior aspect of the right sacroiliac joint.~ Omnipaque dye was injected and good spread was seen throughout the joint.~ After this, approximately 5 mL of bupivacaine, 0.25% and Depo-Medrol, 40 mg was incrementally injected into the right sacroiliac joint. We then moved to the left sacroiliac joint.~ The skin and subcutaneous tissues were anesthetized using lidocaine 1.5% and a 25-gauge needle.~ After this, a 22- gauge spinal needle was inserted under fluoroscopic guidance into the inferior aspect of the left sacroiliac joint.~ Omnipaque dye was injected and good spread was seen throughout the joint. After this, approximately 5 mL of bupivacaine, 0.25% and Depo-Medrol, 40 mg was incrementally injected into the left sacroiliac joint.~ The patient tolerated the procedure well with no complications. The patient was observed in the Pain Clinic and then was discharged home neurologically intact. Plan and Disposition:: Patient was discharged without incident.
[2024-06-13] MEDS: LIDOCAINE 1% 5ML PF VIAL 5 ML (11:07)
[2024-06-13] MEDS: methylPREDNISolone ACETATE 80MG/ML VIAL 80 MG (11:07)
[2024-06-13] MEDS: BUPIVACAINE 0.25% 10ML INJ 25 MG IJ (11:08)
[2024-06-13 11:09] VITALS: BP 102/46; PULSE 97; RESP 18; O2SAT 96
[2024-06-13 11:17] VITALS: BP 102/46; PULSE 97; RESP 18; O2SAT 96
[2024-06-13 11:20] VITALS: BP 108/69; PULSE 52; RESP 16; O2SAT 100
== END 2024-06-13 11:20 | disposition home or self-care (01) ==
PROVIDERS: PCP Family Medicine; Visit Provider Nurse Anesthetist, Certified Registered
DX: M46.1 Sacroiliitis, not elsewhere classified (principal)
CPT/HCPCS: 27096; G0260; J1010

== ENCOUNTER 2024-06-18 04:00 | Emergency (ER) | payer MEDICARE, BC, SELFPAY ==
[2024-06-18 04:01] VITALS: BP 129/82; PULSE 96; RESP 18; TEMP 36.6; O2SAT 99; BMI 25.7
--- NOTE | 2024-06-18 04:06 | HMH.EDGENADL ---
Discharge Plan Disposition Patient Disposition: Home, Self-Care Prescriptions Prescriptions: No Action tamsulosin 0.4 mg capsule,extended release 24hr 0.4 mg PO DAILY meclizine 12.5 mg tablet 12.5 mg PO BID PRN (Reason: Dizziness) Eliquis 2.5 mg tablet 2.5 mg PO DIRECTED Patient Comments: TAKE ONE TABLET BY MOUTH TWICE DAILY furosemide 40 mg tablet See Rx Instructions .ROUTE .COMPLEX Qty: 30 2RF Dose Instruction: Take 1 Tablet by mouth once daily for edema. Rx Instructions: Take 1 Tablet by mouth once daily for edema. finasteride 5 mg tablet 5 mg PO DAILY rosuvastatin 20 mg tablet See Rx Instructions .ROUTE .COMPLEX Qty: 90 1RF Dose Instruction: Take 1 tablet by mouth once a day (at bedtime) Rx Instructions: Take 1 tablet by mouth once a day (at bedtime) nitroglycerin 0.4 mg tablet, sublingual 0.4 mg sublingual Q5M PRN (Reason: chest pain) Qty: 20 0RF Rx Instructions: do not exceed 3 doses per episode levothyroxine 50 mcg capsule 50 mcg PO DAILY Qty: 90 1RF metoprolol succinate 25 mg tablet extended release 24 hr See Rx Instructions .ROUTE .COMPLEX Qty: 30 5RF Dose Instruction: Take 1 tablet by mouth once daily Rx Instructions: Take 1 tablet by mouth once daily cholecalciferol (vitamin D3) 2,000 UNIT capsule 2,000 unit PO DAILY Referrals Follow up/Referrals: Nina Hobbs MD [Primary Care Provider] - See instructions Activity Restrictions/Add. Instructions Additional Instructions/Restrictions: Please take antibiotics as prescribed. If you start passing clots and feel like you cannot pee, recommend returning to the ER. Please follow-up with your primary care provider. Please return to the emergency department if you develop any new or worsening symptoms or become concerned for your health. Clinical Impressions Clinical Impression: Acute hemorrhagic cystitis Instructions Patient Instructions: DI for Urinary Tract Infection (UTI), DI for Urinary Tract Infection in Children Print Language Print Language: Divehi Discharge ED Provider: Jose Pickett General Adult HPI General Chief complaint: Urogenital-Male Stated complaint: blood in urine Time Seen by Provider: 06/18/24 04:05 History of Present Illness HPI narrative: 89-year-old male with history of UTI, long-term use of Eliquis, presents for gross hematuria. Symptoms been ongoing for approximately a day. He noticed some increased urinary frequency and burning. He reports has been treated for UTIs in the past. He denies any back pain fever or systemic symptoms. Related Data Home Medications ?Medication ?Instructions ?Recorded ?Confirmed meclizine 12.5 mg tablet 12.5 mg PO BID PRN Dizziness 09/30/17 06/18/24 tamsulosin 0.4 mg capsule 0.4 mg PO DAILY prostate 09/30/17 06/18/24 cholecalciferol (vitamin D3) 50 2,000 unit PO DAILY Diet supplement 10/01/18 06/18/24 mcg (2,000 unit) capsule finasteride 5 mg tablet 5 mg PO DAILY 10/31/21 06/18/24 apixaban 2.5 mg tablet (Eliquis) 2.5 mg PO DIRECTED Blood Thinner 08/24/23 06/18/24 Previous Rx's ?Medication ?Instructions ?Recorded rosuvastatin 20 mg tablet See Rx Instructions .Route 01/31/24 .COMPLEX #90 tabs nitroglycerin 0.4 mg sublingual 0.4 mg sublingual Q5M PRN chest 02/11/24 tablet pain #20 tabs levothyroxine 50 mcg capsule 50 mcg PO DAILY thyroid #90 caps 03/21/24 metoprolol succinate 25 mg See Rx Instructions .Route 04/14/24 tablet,extended release 24 hr .COMPLEX #30 tabs furosemide 40 mg tablet See Rx Instructions .Route 05/02/24 .COMPLEX #30 tabs Allergies Allergy/AdvReac Type Severity Reaction Status Date / Time oxycodone (OXYCODONE) Allergy Unknown HALLUCINATI Verified 05/16/24 11:29 ONS acetaminophen (From Percocet) Allergy Verified 05/16/24 11:29 [facility] Disclaimer: The information contained in this section may have been updated after the patient was seen, as this information can be updated by other users. Medical History (Updated 06/18/24 @ 05:09 by Jose Pickett MD) Bilateral low back pain with right-sided sciatica Rhinitis Renal insufficiency, mild Deep vein thrombosis (DVT) of left lower extremity Traumatic enucleation of right eye URI, acute Crepitus of right temporomandibular joint on opening of jaw Bilateral temporomandibular joint disorder Hearing loss Muscle cramps Pacemaker Arthropathy of knee Localized edema due to fluid overload CHF (congestive heart failure) Hyperlipidemia penitentiary current use of anticoagulant therapy History of urinary retention History of UTI Hyperlipemia Acquired hypothyroidism Hypertension Anticoagulant disorder Acute urinary retention Surgical History History of prostate surgery History of heart bypass surgery History of hernia repair History of cholecystectomy Family History Other Cancer Diabetes Hyperlipidemia Hypertension Social History Smoking Status: Unknown if ever smoked how long ago did patient quit smokin years ago alcohol intake: former substance use type: denies use current occupational status: retired Travel in the last 8 weeks: None household members: family housing: house current occupational exposures/hazards: No caffeine: Yes Have you lived/traveled outside US in past 30 days?: No Contact w/someone who lives/traveled outside US past 30 days?: No Exposure to someone with infectious disease in past 14 days?: No Do you have a fever (greater than 100.4 F or 38 C)?: No Have you tested positive for COVID-19: No Exposed to someone with COVID-19 in past 14 days?: No Do you have a sore throat?: No Do you have a cough?: No Do you have any weakness?: No Do you have any diarrhea?: No Are you experiencing any unusual bleeding?: No Do you have any muscle aches/pain?: No Do you have any abdominal pain?: No Are you experiencing loss of taste or smell?: No Other Medical History Have you received the Flu Vaccine for this season: No Have you received the Pneumonia Vaccine: No ROS Obtained: Yes All systems reviewed & no additional complaints except as documented Physical Exam General General appearance: alert and in no apparent distress Head Head exam: atraumatic and normocephalic Eye Eye exam: Present normal appearance, PERRL and EOMI ENT ENT exam: Present normal oropharynx and normal external ear exam Neck Neck exam: Present normal inspection and full ROM Chest Chest inspection: Present normal inspection and symmetric chest wall rise; Absent tenderness Respiratory Respiratory exam: Present normal lung sounds bilaterally; Absent respiratory distress Cardiovascular Cardiovascular exam: Present regular rate and normal rhythm Abdominal Exam Abdominal exam: Present soft; Absent distention, tenderness or guarding Extremities Exam Extremities exam: Present normal inspection; Absent edema or joint swelling Back Exam Back exam: Present normal inspection; Absent tenderness Neurological Exam Neurological exam: Present alert and oriented X3; Absent motor sensory deficit Psychiatric Psychiatric exam: Present normal affect and normal mood Skin Skin exam: Present warm, dry and normal color Lymphatic Lymphatic Findings: no adenopathy Medical Decision Making Medical Records Medical records reviewed: Yes I reviewed the patient's medical records. Screening: Per USPSTF and CDC recommendations, given the prevalence of disease in our region, it is our hospital?s policy to screen for HIV and viral Hepatitis for all patients aged 18 and over and those with ongoing risk factors. Caio Inquiry Pt receiving controlled substance: No Caio was queried for this patient: No Vital Signs: 06/18/24 04:01 06/18/24 05:02 Temperature 97.8 F 97.9 F Temperature Source Oral Axillary Pulse Rate 76 Pulse Rate [Left Radial] 96 H Respiratory Rate 18 18 Blood Pressure 108/66 L Blood Pressure [Right Arm] 129/82 Blood Pressure Mean [Right Arm] 97 Blood Pressure Source [Right Arm] Automatic Cuff Blood Pressure Position [Right Arm] Sitting 02 Sat by Pulse Oximetry 99 Oxygen Delivery Method Room Air Room Air Lab Data Lab results reviewed: Yes I reviewed the patient's lab results. Lab Results 06/18/24 04:13: Urine Color Pattie, Urine Appearance Cloudy, Urine pH 6.5, Ur Specific [place] 1.020, Urine Protein 3+ A, Urine Glucose (UA) Negative, Urine Ketones Trace, Urine Blood 3+ A, Urine Nitrate Positive A, Urine Bilirubin Negative, Urine Urobilinogen 1.0, Ur Leukocyte Esterase 2+ A, Urine RBC Tntc, Urine WBC 10-20, Ur Squamous Epith Cells Occasional, Urine Bacteria Trace Orders (Tests/Meds): ED MEDICATIONS Discontinued Medications Generic Name Dose Route Start Last Admin Trade Name Freq PRN Reason Stop Dose Admin Levofloxacin 750 mg 06/18/24 04:52 06/18/24 04:54 Levofloxacin 750 Mg Tablet PO 06/18/24 04:53 750 mg ONCE ONE Administration ORDERS Category Date Time Status HIV Combo Stat Lab 06/18/24 04:12 Ordered Hepatitis C Ab Qual. W/ RFX Stat Lab 06/18/24 04:12 Ordered UA [Urinalysis and Microscopic] Stat Lab 06/18/24 04:13 Completed Urine Culture Stat Micro 06/18/24 04:13 Received Medical Decision Narrative: 89-year-old male with history of long-term use of Eliquis, enlarged prostate, prior UTIs presents for gross hematuria and urinary frequency. History was obtained via interactive discussion with patient, chart. On arrival, patient is [afebrile, hemodynamically stable, satting appropriately, alert, oriented x4, GCS 15], moving all extremities spontaneously. Full physical exam performed and significant for no abdominal tenderness, no flank tenderness Differential includes but is not limited to hemorrhagic cystitis/UTI, pyelonephritis, kidney stone, coagulopathy. Workup initiated including urinalysis. On re-evaluation, patient [remains afebrile, HD stable.] Laboratory workup independently interpreted by me and significant for gross hematuria, 10-20 WBCs and trace bacteria with positive nitrate. This is likely consistent with urinary tract infection. Blood work and CT imaging CT imaging was considered, but deemed unnecessary due to no history of kidney stones in the past, no flank pain, no systemic symptoms, no sign of anemia. Given patient history, exam and workup, patient's presentation most likely represents hemorrhagic cystitis consistent with prior episodes. Patient was initiated on Levaquin and discharged with prescription for Levaquin.. Procedures Risk/Benefits of Procedure(s) Were Explained: Yes Critical Care Critical Care Time Critical Care Time: No
[2024-06-18 04:21] LABS: Appearance,Urine CLOUDY (Clear); Blood, Urine 3+ (Negative); Color,Urine AMBER (Yellow); Glucose,Urine (UA) Negative (Negative); Ketones,Urine TRACE (Negative); Leukocyte Esterase,Urine 2+ (Negative); Microscopic, Urine URINE MICROSCOPIC (MICROSCOPIC); Nitrate,Urine POSITIVE (Negative); PH,Urine 6.5 (5.0-8.5); Protein,Urine 3+ (Negative)
[2024-06-18 04:23] LABS: Bilirubin,Urine Negative (Negative)
[2024-06-18 04:46] LABS: Bacteria,Urine Trace /lpf; RBC,Urine TNTC #/hpf (0-3); Squamous Epithelial Cell,Urine Occasional #/hpf (0-5)
[2024-06-18] MEDS: levoFLOXacin 750 MG TABLET PO (04:54)
[2024-06-18 05:02] VITALS: BP 108/66; PULSE 76; RESP 18; TEMP 36.6; O2SAT 99
--- NOTE | 2024-06-20 08:33 | PC.NURSE ---
URINE CULTURE DISCUSSED WITH DR PLATT, GIVEN LEVAQUIN 750. 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
== END 2024-06-18 05:03 | disposition home or self-care (01) ==
PROVIDERS: Emergency Provider Emergency Medicine; PCP Family Medicine
DX: N30.01 Acute cystitis with hematuria (principal); R30.9 Painful micturition, unspecified; R35.0 Frequency of micturition
CPT/HCPCS: 81001; 87086; 87088; 87186; 99283

== ENCOUNTER 2024-06-28 09:41 | Outpatient (POV) | payer MEDICARE, BC, SELFPAY ==
[2024-06-28 09:54] VITALS: BP 115/62; PULSE 95; RESP 14; O2SAT 98; BMI 23.7
--- NOTE | 2024-06-28 10:03 | EXP.PAIN.SOA ---
[facility] Disclaimer: The information contained in this section may have been updated after the patient was seen, as this information can be updated by other users. Medical History Bilateral low back pain with right-sided sciatica Rhinitis Renal insufficiency, mild Deep vein thrombosis (DVT) of left lower extremity Traumatic enucleation of right eye URI, acute Crepitus of right temporomandibular joint on opening of jaw Bilateral temporomandibular joint disorder Hearing loss Muscle cramps Pacemaker Arthropathy of knee Localized edema due to fluid overload CHF (congestive heart failure) Hyperlipidemia longterm current use of anticoagulant therapy History of urinary retention History of UTI Hyperlipemia Acquired hypothyroidism Hypertension Anticoagulant disorder Acute urinary retention Surgical History History of prostate surgery History of heart bypass surgery History of hernia repair History of cholecystectomy Family History Other Cancer Diabetes Hyperlipidemia Hypertension Social History Smoking Status: Unknown if ever smoked how long ago did patient quit smokin years ago alcohol intake: former substance use type: denies use current occupational status: other Travel in the last 8 weeks: None household members: family housing: house current occupational exposures/hazards: No caffeine: Yes PM Subjective & Objective Subjective Subjective:: Patient is a pleasant 89-year-old male who presents today for follow-up of bilateral SI injections on 06/13/2024. Today he rates his pain a 5 out of 10. He states that he has not had any new injuries or falls. He does state from our last visit that the SI injections really did help. He states the pain is not severe as what it was and that it is much more tolerable. He states that it is more like a dull sensation now and that it does come and go. He states that he did get the compounded cream we ordered but since the pain is not as bad and it does seem better he has not even needed to use this. Patient was also ordered baclofen 5 mg 3 times daily from our office however he states he never picked this up because he never had much improvement with the other muscle relaxer that he was given from his primary care of Flexeril. Patient overall states he is doing much better from when he initially saw our office. His Caio has been reviewed and is appropriate. Review of Systems: General: No recent weight changes, no fever, no sleep disturbances Respiratory: No cough, no shortness of air, no recurring pulmonary infections Cardiovascular/peripheral vascular: No chest pain, no palpitations, no edema, no shortness of breath Gastrointestinal: No new onset incontinence, normal bowel movements reported Genitourinary: No new onset incontinence Musculoskeletal: Low back pain Psychiatric: [Normal mood/affect] Neurological: [Denies weakness in extremities], [denies balance issues] Pain at rest (0-10 scale): 5 Objective Objective:: Physical Exam: General: Alert and oriented x3, no acute distress, pleasant and cooperative Lungs: Respirations even and unlabored, symmetrical chest expansion Eyes: PERRL Musculoskeletal: Flexion and extension of lumbar [spine] somewhat guarded secondary to pain, [antalgic gait noted] Neurological: Speech clear, no gross sensory deficit Has patient had previous pain injection?: Yes Percent improvement in pain since last injection: Significant relief Conservative treatment options previously tried: Home exercise plan Length of treatment: Longer than 12 weeks Meds Home Medications and Allergies Home Medications ?Medication ?Instructions ?Recorded ?Confirmed ?Type meclizine 12.5 mg tablet 12.5 mg PO BID PRN Dizziness 09/30/17 06/28/24 History tamsulosin 0.4 mg capsule 0.4 mg PO DAILY prostate 09/30/17 06/28/24 History cholecalciferol (vitamin D3) 50 2,000 unit PO DAILY Diet supplement 10/01/18 06/28/24 History mcg (2,000 unit) capsule finasteride 5 mg tablet 5 mg PO DAILY 10/31/21 06/28/24 History apixaban 2.5 mg tablet (Eliquis) 2.5 mg PO DIRECTED Blood Thinner 08/24/23 06/28/24 History rosuvastatin 20 mg tablet See Rx Instructions .Route 01/31/24 06/28/24 Rx .COMPLEX #90 tabs nitroglycerin 0.4 mg sublingual 0.4 mg sublingual Q5M PRN chest 02/11/24 06/28/24 Rx tablet pain #20 tabs levothyroxine 50 mcg capsule 50 mcg PO DAILY thyroid #90 caps 03/21/24 06/28/24 Rx metoprolol succinate 25 mg See Rx Instructions .Route 04/14/24 06/28/24 Rx tablet,extended release 24 hr .COMPLEX #30 tabs furosemide 40 mg tablet See Rx Instructions .Route 05/02/24 06/28/24 Rx .COMPLEX #30 tabs levofloxacin 750 mg tablet 750 mg PO DAILY 7 days #7 tabs 06/20/24 06/28/24 Rx New Prescriptions to Start Prescriptions: Allergies Allergy/AdvReac Type Severity Reaction Status Date / Time oxycodone (OXYCODONE) Allergy Unknown HALLUCINATI Verified 05/16/24 11:29 ONS acetaminophen (From Percocet) Allergy Verified 05/16/24 11:29 Assessment and Plan *Assessment and plan (1) Bilateral sacroiliitis: Status: Acute Category: Medical Code(s): M46.1 - Sacroiliitis, not elsewhere classified Plan Patient has had significant improvement following his SI injections and is stating that the pain is not as severe and not as constant as what it was previously. Patient does state the pain is much more manageable. We will follow-up with him in 6 weeks as he is not requiring any additional interventions at this time. Patient was also reviewed that he can still garbage pick up man the other muscle relaxer that we sent in of baclofen and that it may help better than the Flexeril and to keep us posted. Patient agrees with this plan of care. Patient has been instructed to contact the clinic with any concerns before the next appointment. Dr. Lambert has reviewed this note and agrees with this plan of care. This note was dictated using voice recognition software and make contain errors or omissions. All injections are used with Lidocaine, Bupivacaine and Depo Medrol. Occasionally urine drug screen is needed to verify patient's compliance with our office pain contract. This is ordered based off specific treatments related to chronic pain with the potential to abuse certain medications.
== END 2024-06-28 23:59 | disposition home or self-care (01) ==
LOC: SC.PAIN 09:43
PROVIDERS: PCP Family Medicine; Visit Provider Nurse Practitioner Family
DX: M46.1 Sacroiliitis, not elsewhere classified (principal)
CPT/HCPCS: 99212; G0463

== ENCOUNTER 2024-08-01 15:45 | Outpatient (CLI) | payer MEDICARE, BC, SELFPAY ==
[2024-08-01 18:38] LABS: Basophils % 0.5 % (0.1-2.0); Eosinophils # 0.1 K/mm3 (0.0-0.4); Eosinophils % 1.2 % (0.1-12.0); Hematocrit 42.3 % (42.0-52.0); Hemoglobin 13.8 g/dL (14.1-18.0); Lymphocytes # 2.1 K/mm3 (0.7-4.5); Lymphocytes % 28.8 % (10-50); Mean Corpuscular HGB Conc 32.6 g/dL (31.8-35.4); Mean Corpuscular Hemoglobin 31.1 pg (27.0-31.2); Mean Corpuscular Volume 95.3 fl (80-94); Monocytes # 0.7 K/mm3 (0.1-1.0); Monocytes % 9.6 % (1.7-9.3); Neutrophils # 4.4 K/mm3 (1.8-7.8); Neutrophils % 59.4 % (37.0-80.0); Nucleated Red Blood Cells # 0 10^3/uL; Nucleated Red Blood Cells % 0 %; Platelet Count 151 K/mm3 (142-424); Red Blood Count 4.44 M/mm3 (4.60-6.20); Red Cell Distribution Width 14.3 % (11.5-17.5); Red Cell Distribution Width-SD 49.8 fL; White Blood Count 7.4 K/mm3 (4.8-10.8)
[2024-08-01 19:15] LABS: Chloride 108 mmol/L (98-107); Potassium 4.5 mmoL/L (3.5-5.1); Sodium 141 mmol/L (136-145)
[2024-08-01 19:18] LABS: Alanine Aminotransferase 21 U/L (12-78); Albumin/Globulin Ratio 1.5 (1.1-1.8); Alkaline Phosphatase 107 U/L (38-126); Anion Gap 11.5 mEq/L (5-15); Aspartate Amino Transferase 29 U/L (17-59); Blood Urea Nitrogen 17 mg/dl (9-20); Calcium 9.6 mg/dl (8.4-10.2); Carbon Dioxide 26 mmol/L (22.0-30.0); Estimated Glomerular Filt Rate 70 ml/min (>60); GFR (African American) 85 ML/MIN (>60); Globulin 2.7 g/dL (1.3-3.2); Glucose 97 mg/dl (74-100); Total Protein,Serum 6.7 g/dl (6.3-8.2)
--- OUTSIDE RECORDS SUMMARY | 2024-08-02 12:18 | XMS_ITS | Data Portability ---
Author Organization [facility] LEONIDAS Alvarez [place] CLOS[facility] Address [address] [place] [address] [address] [place] [address] Assessment No assessment recorded. Plan of Treatment Reminders Order Date Submit Date Provider Last Modified By Organization Details Last Modified Time Details Appointments None record ed. Lab None record ed. Referral None record ed. Procedures None record ed. Surgeries None record ed. Imaging None record ed. Medication Orders None record ed. Patient TargetsNo targets recorded. Patient InstructionsNo instructions recorded. Reason for Referral None Reported. Problems No Known Problems Procedures Surgical History Date Name Laterality Status Provider Name and Address Organization Details Recorded Time 9 Bladder Irrigation completed ADRIENNE MCCORMICK MD [address] [place] [address], [id number], [facility] 10/19/2018 14:11:56 Imaging Results None recorded. Procedure Notes None recorded. Medical Equipment None Reported. Allergies Allergen ID Allergen Name Allergen Category Reaction Reaction Severity Criticality Documentation Date Start Date Code Code System Note Provider Name and Address Organization Details Recorded Time 135677 acetamino phen / oxycodone medicatio n Not available Not available Not available 10/19/2018 38483 3 RxNorm Viola Long [facility] 9 13:14:22 Medications Name Sig Start Date Stop Date Status Note LastModified by Organization Details LastModified Time furosemide 40 mg tablet active Not Available Not Available Not Available prednisone 10 mg tablet active Not Available Not Available Not Available amiodarone 200 mg tablet active Not Available Not Available No t Available ciprofloxacin 500 mg tablet active Not Available Not Availabl e Not Available tamsulosin 0.4 mg capsule active Not Available Not Available N ot Available hyoscyamine 0.125 mg disintegrating tablet active Not Available Not Available Not Available cephalexin 500 mg capsule active Not Available Not Available N ot Available warfarin 5 mg tablet active Not Available Not Available Not Available nitroglycerin 0.4 mg sublingual tablet active Not Available Not Available Not Available furosemide 20 mg tablet active Not Available Not Available Not Available metoprolol succinate ER 25 mg tablet,extended release 24 hr active Not Available Not Availabl e Not Available dutasteride 0.5 mg capsule active Not Available Not Available N ot Available rosuvastatin 20 mg tablet active Not Available Not Available No t Available nitrofurantoin monohydrate/macr ocrystals 100 mg capsule active Not Available Not Available Not Available Vitals Date Recorded Body height Body mass index (BMI) Body weight Provider Name and Address Organization Details Last Updated DateTime 10/19/2018 182.88 cm 25.9 kg/m2 34797.14 g cristi [facility] 10/19/2018 13:14:06 Social History Question Answer Notes LastModified by Organizat ion Details LastModified Time Tobacco Smoking Status Former Smoker Viola Long [facility] 10/19/2018 13:14:40 What Is Your Level Of Alcohol Consumption? None Information not available 10/19/2018 Marital Status Informatio n not available 10/19/2018 What Was The Date Of Your Most Recent Tobacco Screening? 10/19/2018 Information not available 06/06/2019 Sex: Unknown Functional Status None recorded. Mental Status None recorded. Family History Relationship Description Onset Age of this Age Resolved Age Notes LastModified by Organization Details LastModified Time Father No current problems or disability Not available 10/19 13:14:30 Mother No current problems or disability Not available 10/19 13:14:30 Medical History Condition Response Pacemaker Y Heart Disease Y Heart Arrhythmia Y Past Encounters Encounter ID Performer Location Encounter Start Date Encounter Closed Date Diagnosis/Indication Diagnosis SNOMED-CT Code Diagnosis ICD10 Code Diagnosis Note [id number] ADRIENNE MCCORMICK MD [facility] [address] [place] [address] 10/19/2018 12:10:04 10/24/2018 12:56:44 Benign prostatic hyperplasia with outflow obstruction 014981865 N40.1 Pt with very large prostate at time of TURP last yr. He had some difficulty voiding post op but eventually began voiding better. Recent retention due to UTI. Voiding trial today successful . He voided 200 cc of 200 placed into bladder. Health Concerns Section Related Observation LastModified by Organization Detai ls LastModified Time None Recorded Concern Status LastModified by Organization Details LastModified Time None Recorded Advance Directives Directive None Recorded Payers Encounter Date Sequence Insurance Name Policy Number Policy Waddell Covered Member ID Waddell Member ID Guarantor Name 10/19/2018 1 [place]ARE[place]ICARE[place] Richard Loyd [id number] Richard Loyd 10/19/2018 2 [employer] [id number] [id number] [id number] Richard Loyd [id number] Richard Loyd Notes Date Note Type Note Provider Name and Address Organization Details Recorded Time 10/19/2018 text/html 83 y/o male presents today due to retention, he is s/p TURP 10/26/17 due to h/o BPH and retention. He states he was treated for a UTI on 10/01/18 and was treated with Keflex but went into retention shortly after. He went to the ER where a FC was placed. He denies any gross hematuria. He has no urinary complaints today. ADRIENNE MCCORMICK MD [address] [place], [address], [facility] 10/19/2018 14:12:45
--- OUTSIDE RECORDS SUMMARY | 2024-08-02 12:18 | XMS_ITS | Data Portability ---
Author Organization [facility] and [facility] Address [address] [place] [address] Assessment No assessment recorded. Plan of Treatment Reminders Order Date Submit Date Provider Last Modified By Organization Details Last Modified Time Details Appointments None recorded. Lab urinalysis, dipstick [address], [address], 4 13:21:18 urinalysis, dipstick [address], [address], 3 15:13:26 Referral None recorded. Procedures None recorded. Surgeries None recorded. Imaging None recorded. Medication Orders finasteride 5 mg tablet 2023 024 [place] [facility] [address] [place], [address], 4 10:46:49 tamsulosin 0.4 mg capsule 2023 024 [place] [facility], [address] [place], [address], 4 10:46:25 tamsulosin 0.4 mg capsule 2022 023 [place] [facility], [address] [place], [address], 3 12:41:45 finasteride 5 mg tablet 2022 023 [facility], [address] [place], [address], 3 12:42:06 Patient TargetsNo targets recorded. Patient InstructionsNo instructions recorded. Reason for Referral None Reported. Results Created Date Observation Date Name Description Value Unit Range Abnormal Flag Note LastModifiedBy Organization Detail LastModifiedTime 09/10/19 23 09/09/2022 urina lysis , dipst ick Leukocytes (reference range) negati ve Not Available [address], [address], 09/09/2022 10:43:45 09/10/19 23 09/09/2022 urina lysis , dipst ick Nitrite (reference range:) negati ve Not Available [address], [address], 09/09/2022 10:43:45 09/10/19 23 09/09/2022 urina lysis , dipst ick Urobilinogen (reference range) 0.2 Not Available [address], [address], 09/09/2022 10:43:45 09/10/19 23 09/09/2022 urina lysis , dipst ick Protein (reference range) negati ve Not Available [address], [address], 09/09/2022 10:43:45 09/10/19 23 09/09/2022 urina lysis , dipst ick pH (reference range 5-8.5) 6.0 Not Available [address], [address], 09/09/2022 10:43:45 09/10/19 23 09/09/2022 urina lysis , dipst ick Blood (reference range:) hemoly zed: Trace Not Available [address], [address], 09/09/2022 10:43:45 09/10/19 23 09/09/2022 urina lysis , dipst ick Specific [place] (reference range) 1.010 Not Available [address], [address], 09/09/2022 10:43:45 09/10/19 23 09/09/2022 urina lysis , dipst ick Ketone (reference range) negati ve Not Available [address], [address], 09/09/2022 10:43:45 09/10/19 23 09/09/2022 urina lysis , dipst ick Bilirubin (reference range) negati ve Not Available [address], [address], 09/09/2022 10:43:45 09/10/19 23 09/09/2022 urina lysis , dipst ick Glucose (reference range) negati ve Not Available [address], [address], 09/09/2022 10:43:45 09/17/19 24 09/17/2023 urina lysis , dipst ick Leukocytes (reference range) negati ve Not Available [address], [address], 09/17/2023 10:52:51 09/17/19 24 09/17/2023 urina lysis , dipst ick Nitrite (reference range:) negati ve Not Available [address], [address], 09/17/2023 10:52:51 09/17/19 24 09/17/2023 urina lysis , dipst ick Urobilinogen (reference range) 1 Not Available [address], [address], 09/17/2023 10:52:51 09/17/19 24 09/17/2023 urina lysis , dipst ick Protein (reference range) 30 Not Available [address], [address], 09/17/2023 10:52:51 09/17/19 24 09/17/2023 urina lysis , dipst ick pH (reference range 5-8.5) 6.5 Not Available [address], [address], 09/17/2023 10:52:51 09/17/19 24 09/17/2023 urina lysis , dipst ick Blood (reference range:) small Not Available [address], [address], 09/17/2023 10:52:51 09/17/19 24 09/17/2023 urina lysis , dipst ick Specific [place] (reference range) 1.020 Not Available [address], [address], 09/17/2023 10:52:51 09/17/19 24 09/17/2023 urina lysis , dipst ick Ketone (reference range) negati ve Not Available [address], [address], 09/17/2023 10:52:51 09/17/19 24 09/17/2023 urina lysis , dipst ick Bilirubin (reference range) negati ve Not Available [address], [address], 09/17/2023 10:52:51 09/17/19 24 09/17/2023 urina lysis , dipst ick Glucose (reference range) negati ve Not Available [facility] [address], [place], [address], 09/17/2023 10:52:51 Result Notes None recorded. Procedures Surgical History Date Name Laterality Status Provider Name and Address Organization Details Recorded Time incision of gallbladder completed Elizabeth HOUGH [facility] & [place] 09/09/2022 10:20:46 procedure on heart completed Sulaiman HOUGH [facility] & [place] 09/09/2022 10:20:56 eye excision completed Elizabethkim HOUGH [facility] & [place] 09/09/2022 10:21:13 prostatectomy completed Elizabethkim HOUGH [facility] & [place] 09/09/2022 10:21:30 hernia repair completed Elizabethkim HOUGH [facility] & [place] 09/09/2022 10:21:39 Imaging Results None recorded. Procedure Notes None recorded. Medical Equipment None Reported. Medications Name Sig Start Date Stop Date Status Note LastModified by Organization Details LastModified Time furosemide 40 mg tablet TAKE 1 TABLET BY MOUTH ONCE DAILY FOR EDEMA. active Not Available Not Available No t Available prednisone 10 mg tablet TAKE 1 TABLET BY MOUTH TWICE DAILY FOR 4 DAYS. active Not Available Not Available No t Available amoxicillin 875 mg tablet TAKE 1 TABLET BY MOUTH EVERY 12 HOURS. active Not Available Not Available No t Available tamsulosin 0.4 mg capsule TAKE 1 CAPSULE BY MOUTH ONCE DAILY. active Not Available Not Available No t Available benzonatate 100 mg capsule TAKE 1 CAPSULE BY MOUTH 3 TIMES DAILY NEEDED FOR COUGH. active Not Available Not Available No t Available levothyroxine 50 mcg tablet TAKE 1 TABLET BY MOUTH ONCE DAILY FOR THYROID active Not Available Not Available No t Available warfarin 5 mg tablet TAKE 1 TABLET ON WEDNESDAY AND WEDNESDAY'' S. TAKE 1/2 TABLET ONCE DAILY ON ALL OTHER DAYS. active Not Available Not Available No t Available metoprolol succinate ER 25 mg tablet,extended release 24 hr TAKE 1 TABLET BY MOUTH ONCE DAILY active Not Available Not Available No t Available cefuroxime axetil 500 mg tablet TAKE 1 TABLET BY MOUTH TWICE DAILY. DRINK PLENTY OF FLUIDS * active Not Available Not Available No t Available finasteride 5 mg tablet TAKE 1 TABLET BY MOUTH DAILY 2023 active Not Available Not Available Not Avai lable rosuvastatin 20 mg tablet TAKE 1 TABLET BY MOUTH ONCE A DAY (AT BEDTIME) active Not Available Not Available No t Available Eliquis 2.5 mg tablet TAKE 1 TABLET BY MOUTH 2 TIMES DAILY. active Not Available Not Available No t Available Vitals Date Recorded Body height Body mass index (BMI) Body weight Provider Name and Address Organization Details Last Updated DateTime 09/09/2022 182.88 cm 25.4 kg/m2 29727.77 g Elizabeth Wright [facility] & [place] 09/09/2022 10:16:45 Date Recorded Body height Body mass index (BMI) Body weight Body temperature Provider Name and Address Organization Details Last Updated DateTime 09/17/2023 182.88 cm 25.6 kg/m2 84624.96 g 98.3 [degF] Elizabeth Wright [facility] & [place] 09/17/2023 10:19:54 Social History None recorded. Functional Status None recorded. Mental Status None recorded. Family History Nothing Reported Notes:both parents Medical History No medical history recorded. Past Encounters Encounter ID Performer Location Encounter Start Date Encounter Closed Date Diagnosis/Indication Diagnosis SNOMED-CT Code Diagnosis ICD10 Code Diagnosis Note [id number] Kg Higgins Jr, MD [facility] [address] [address] 09/09/2022 09:33:49 09/09/2022 10:42:50 Blood in urine 73129941 R31.9 Patient with history of very large prostate status post TURP 5 years ago. He has had some occasional blood in his urine. His risk factors include large prostatic adenoma and Coumadin use. He is on finasterid e to help prevent the recurrent episodes of gross hematuria. His urine did clear and we discussed that this could occur on occasion in if it resolves in short order there is no reason for further workup. Benign pro static hyperplasia without outflow obstruction 880256000 N40.0 patient with history of very large prostate. He underwent a TURP about 5 years ago in his voiding adequately . He does continue on tamsulosin for assistance . His last PSA was normal 1 year ago and we will not perform any further PSAs due to his age. [id number] Kg Higgins Jr, MD [facility] [address] [address] 09/17/2023 10:01:47 09/17/2023 10:44:00 Benign prostatic hyperplasia without outflow obstruction 300030233 N40.0 patient with history of very large prostate. He underwent a TURP about 56years ago and is voiding adequately . He does continue on tamsulosin for assistance . His last PSA was normal 2 year ago and we will not perform any further PSAs due to his age. Antwon hematuria 33312102 5 R31.0 no further gross hematuria. Patient is on Eliquis. Health Concerns Section Related Observation LastModified by Organization Detai ls LastModified Time None Recorded Concern Status LastModified by Organization Details LastModified Time None Recorded Advance Directives Directive None Recorded Payers Encounter Date Sequence Insurance Name Policy Number Policy Waddell Covered Member ID Waddell Member ID Guarantor Name 09/09/2022 2 [place] KYLEE [facility] [employer] [employer]PL[employer] PROGRAM [address] Loyd [id number] Richard Loyd 09/17/2023 2 [place] [facility] 111 Richard Loyd [id number] Richard Loyd 09/17/2023 1 [place] Richard Loyd [id number] Richardre Loyd Notes Date Note Type Note Provider Name and Address Organization Details Recorded Time 09/09/2022 text/html Patient is an 87-year-old white male who transferred care from [facility] where I saw him previously. His last visit with me was in September 2021 at [facility]. He has a history of very large prostate. He underwent a TURP about 5 years ago with improvement in his ability to void. He has had some occasional grossly bloody urine. He continues on tamsulosin and finasteride. He states that last week he had sudden onset of blood in his urine and presented to Dr. Hobbs and a course of antibiotics was given. He states that his urine cleared even before he went to see Dr. Hobbs. Patient is on Coumadin for history of heart disease. His last PSA was 1.6 in August 2021. Kg Higgins Jr, MD [address] [place] [address], [address], [place], [address], [place] [facility] [place] 09/09/2022 12:35:20 09/17/2023 text/html Patient is an 88-year-old white male with history of BPH. He underwent a TURP about 6 years ago with improvement in his ability to void. He continues on tamsulosin and finasteride due to some bladder decompensation. He had an episode of gross hematuria last year but states no further. His last PSA was 1.6 in August 2021. States he is voiding well but has some urgency with leakage in the mornings after he takes his Lasix. His Coumadin was changed over to Eliquis this year. He states flow and nocturia 1-2 times. Kg Higgins Jr, MD [address], [address], [place], [address], [place] [facility] [place] 09/17/2023 11:43:07
== END 2024-08-01 23:59 | disposition home or self-care (01) ==
LOC: LAB.DROPOF 08-02 12:16
PROVIDERS: PCP Family Medicine; Visit Provider Family Medicine
DX: N28.9 Disorder of kidney and ureter, unspecified (principal); Z79.01 Long term (current) use of anticoagulants
CPT/HCPCS: 80053; 85025

== ENCOUNTER 2024-08-09 09:25 | Outpatient (POV) | payer MEDICARE, BC, SELFPAY ==
--- OUTSIDE RECORDS SUMMARY | 2024-08-09 09:28 | XMS_ITS | Data Portability ---
Author Organization [facility] and [facility] Address [address] [place] [address] Assessment No assessment recorded. Plan of Treatment Reminders Order Date Submit Date Provider Last Modified By Organization Details Last Modified Time Details Appointments None recorded. Lab urinalysis, dipstick [address], [address], 4 13:21:18 urinalysis, dipstick [address], [address], 3 15:13:26 Referral None recorded. Procedures None recorded. Surgeries None recorded. Imaging None recorded. Medication Orders finasteride 5 mg tablet 2023 024 [place] [facility] [address] [place], [address], 4 10:46:49 tamsulosin 0.4 mg capsule 2023 024 [place] [facility], [address] [place], [address], 4 10:46:25 tamsulosin 0.4 mg capsule 2022 023 [place] [facility], [address] [place], [address], 3 12:41:45 finasteride 5 mg tablet 2022 023 [facility], [address] [place], [address], 3 12:42:06 Patient TargetsNo targets recorded. Patient InstructionsNo instructions recorded. Reason for Referral None Reported. Results Created Date Observation Date Name Description Value Unit Range Abnormal Flag Note LastModifiedBy Organization Detail LastModifiedTime 09/10/19 23 09/09/2022 urina lysis , dipst ick Leukocytes (reference range) negati ve Not Available [address], [address], 09/09/2022 10:43:45 09/10/19 23 09/09/2022 urina lysis , dipst ick Nitrite (reference range:) negati ve Not Available [address], [address], 09/09/2022 10:43:45 09/10/19 23 09/09/2022 urina lysis , dipst ick Urobilinogen (reference range) 0.2 Not Available [address], [address], 09/09/2022 10:43:45 09/10/19 23 09/09/2022 urina lysis , dipst ick Protein (reference range) negati ve Not Available [address], [address], 09/09/2022 10:43:45 09/10/19 23 09/09/2022 urina lysis , dipst ick pH (reference range 5-8.5) 6.0 Not Available [address], [address], 09/09/2022 10:43:45 09/10/19 23 09/09/2022 urina lysis , dipst ick Blood (reference range:) hemoly zed: Trace Not Available [address], [address], 09/09/2022 10:43:45 09/10/19 23 09/09/2022 urina lysis , dipst ick Specific [place] (reference range) 1.010 Not Available [address], [address], 09/09/2022 10:43:45 09/10/19 23 09/09/2022 urina lysis , dipst ick Ketone (reference range) negati ve Not Available [address], [address], 09/09/2022 10:43:45 09/10/19 23 09/09/2022 urina lysis , dipst ick Bilirubin (reference range) negati ve Not Available [address], [address], 09/09/2022 10:43:45 09/10/19 23 09/09/2022 urina lysis , dipst ick Glucose (reference range) negati ve Not Available [address], [address], 09/09/2022 10:43:45 09/17/19 24 09/17/2023 urina lysis , dipst ick Leukocytes (reference range) negati ve Not Available [address], [address], 09/17/2023 10:52:51 09/17/19 24 09/17/2023 urina lysis , dipst ick Nitrite (reference range:) negati ve Not Available [address], [address], 09/17/2023 10:52:51 09/17/19 24 09/17/2023 urina lysis , dipst ick Urobilinogen (reference range) 1 Not Available [address], [address], 09/17/2023 10:52:51 09/17/19 24 09/17/2023 urina lysis , dipst ick Protein (reference range) 30 Not Available [address], [address], 09/17/2023 10:52:51 09/17/19 24 09/17/2023 urina lysis , dipst ick pH (reference range 5-8.5) 6.5 Not Available [address], [address], 09/17/2023 10:52:51 09/17/19 24 09/17/2023 urina lysis , dipst ick Blood (reference range:) small Not Available [address], [address], 09/17/2023 10:52:51 09/17/19 24 09/17/2023 urina lysis , dipst ick Specific [place] (reference range) 1.020 Not Available [address], [address], 09/17/2023 10:52:51 09/17/19 24 09/17/2023 urina lysis , dipst ick Ketone (reference range) negati ve Not Available [address], [address], 09/17/2023 10:52:51 09/17/19 24 09/17/2023 urina lysis , dipst ick Bilirubin (reference range) negati ve Not Available [address], [address], 09/17/2023 10:52:51 09/17/19 24 09/17/2023 urina lysis , dipst ick Glucose (reference range) negati ve Not Available [facility] [address], [place], [address], 09/17/2023 10:52:51 Result Notes None recorded. Procedures Surgical History Date Name Laterality Status Provider Name and Address Organization Details Recorded Time incision of gallbladder completed Elizabeth HOUGH [facility] & [place] 09/09/2022 10:20:46 procedure on heart completed Sulaiman HOUGH [facility] & [place] 09/09/2022 10:20:56 eye excision completed Elizabethkim HOUGH [facility] & [place] 09/09/2022 10:21:13 prostatectomy completed Elizabethkim HOUGH [facility] & [place] 09/09/2022 10:21:30 hernia repair completed Elizabethkim HOUGH [facility] & [place] 09/09/2022 10:21:39 Imaging Results None recorded. Procedure [...] Updated DateTime 09/09/2022 182.88 cm 25.4 kg/m2 20246.77 g Elizabeth Wright [facility] & [place] 09/09/2022 10:16:45 Date Recorded Body height Body mass index (BMI) Body weight Body temperature Provider Name and Address Organization Details Last Updated DateTime 09/17/2023 182.88 cm 25.6 kg/m2 24261.96 g 98.3 [degF] Elizabeth Wright [facility] & [place] 09/17/2023 10:19:54 Social History None recorded. Functional Status None recorded. Mental Status None recorded. Family History Nothing Reported Notes:both parents Medical History No medical history recorded. Past Encounters Encounter ID Performer Location Encounter Start Date Encounter Closed Date Diagnosis/Indication Diagnosis SNOMED-CT Code Diagnosis ICD10 Code Diagnosis Note [id number] Kg Higgins Jr, MD [facility] [address] [address] 09/09/2022 09:33:49 09/09/2022 10:42:50 Blood in urine 03712365 R31.9 Patient with history of very large [...] Benign pro static hyperplasia without outflow obstruction 248972892 N40.0 patient with history of very large prostate. He underwent a TURP about 5 years ago in his voiding adequately . He does continue on tamsulosin for assistance . His last PSA was normal 1 year ago and we will not perform any further PSAs due to his age. [id number] Kg Higgins Jr, MD [facility] [address] [address] 09/17/2023 10:01:47 09/17/2023 10:44:00 Benign prostatic hyperplasia without outflow obstruction 133619826 N40.0 patient with history of very large prostate. He underwent a TURP about 56years ago and is voiding adequately . He does continue on tamsulosin for assistance . His last PSA was normal 2 year ago and we will not perform any further PSAs due to his age. Antwon hematuria 23405527 5 R31.0 no further gross hematuria. Patient is on Eliquis. Health Concerns Section Related Observation LastModified by Organization Detai ls LastModified Time None Recorded Concern Status LastModified by Organization Details LastModified Time None Recorded Advance Directives Directive None Recorded Payers Encounter Date Sequence Insurance Name Policy Number Policy Waddell Covered Member ID Waddell Member ID Guarantor Name 09/09/2022 2 [place] K[employer]E [facility] EMPL[employer] PROGRAM 111 Richard Loyd [id number] Richard Loyd 09/17/2023 2 [place] [facility] 111 Richard Loyd [id number] Richard Loyd 09/17/2023 1 [place] Richard Loyd [id number] Richardre Loyd Notes Date Note Type Note Provider Name and Address Organization Details Recorded Time 09/09/2022 text/html Patient is an 87-year-old white male who transferred care from [facility] where I saw him previously. His last visit with me was in September 2021 at [facility]. He has a history of very large [...] in August 2021. Kg Higgins Jr, MD [address] [place] [address], [address], [place], [address], [place] [facility] [place] 09/09/2022 12:35:20 09/17/2023 text/html Patient is an [...] 1-2 times. Kg Higgins Jr, MD [address], [address], [place], [address], [place] [facility] [facility] [place] 09/17/2023 11:43:07
--- OUTSIDE RECORDS SUMMARY | 2024-08-09 09:28 | XMS_ITS | Data Portability ---
Author Organization [facility] LEONIDAS Alvarez [facility] Address [address] [place] [address] [address] [place] [address] Assessment No assessment recorded. Plan of Treatment [...] 9 Bladder Irrigation completed ADRIENNE MCCORMICK MD [address] [place] [address], [address], [facility] 10/19/2018 14:11:56 Imaging Results None recorded. Procedure Notes None recorded. Medical Equipment None Reported. Allergies Allergen ID Allergen Name Allergen Category Reaction Reaction Severity Criticality Documentation Date Start Date Code Code System Note Provider Name and Address Organization Details Recorded Time 211901 acetamino phen / oxycodone medicatio n Not available Not available Not available 10/19/2018 63857 3 RxNorm Viola Long [facility] 9 13:14:22 Medications Name Sig [...] Updated DateTime 10/19/2018 182.88 cm 25.9 kg/m2 88597.14 g cristi Long [facility] 10/19/2018 13:14:06 Social History Question Answer Notes LastModified by Organizat ion Details LastModified Time Tobacco Smoking Status Former Smoker Viola Long [facility] 10/19/2018 13:14:40 What Is Your [...] SNOMED-CT Code Diagnosis ICD10 Code Diagnosis Note [id number] ADRIENNE MCCORMICK MD [facility] [address] [facility] [address] [place] [address] 10/19/2018 12:10:04 10/24/2018 12:56:44 Benign prostatic hyperplasia with outflow obstruction [id number] N40.1 Pt with very large prostate at [...] Name 10/19/2018 1 [place] Richard Loyd [id number] Richard Loyd 10/19/2018 2 [place] BLUE CROSS - FEP 111 Richard Loyd [id number] Richard Loyd Notes Date Note Type Note [...] complaints today. ADRIENNE MCCORMICK MD [address] [place], [address], [facility] 10/19/2018 14:12:45
--- NOTE | 2024-08-09 09:49 | A.OFFVIS_ITS ---
[facility] Disclaimer: The information contained in this section may have been updated after the patient was seen, as this information can be updated by other users. Medical History Bilateral low back pain with right-sided sciatica Rhinitis Renal insufficiency, mild Deep vein thrombosis (DVT) of left lower extremity Traumatic enucleation of right eye URI, acute Crepitus of right temporomandibular joint on opening of jaw Bilateral temporomandibular joint disorder Hearing loss Muscle cramps check BMP Pacemaker Arthropathy of knee Localized edema due to fluid overload CHF (congestive heart failure) Hyperlipidemia refill Rosuvastatin USP current use of anticoagulant therapy History of urinary retention History of UTI Hyperlipemia Acquired hypothyroidism Hypertension Anticoagulant disorder Acute urinary retention Surgical History History of prostate surgery History of heart bypass surgery History of hernia repair History of cholecystectomy Family History Other Cancer Diabetes Hyperlipidemia Hypertension Social History Smoking Status: Unknown if ever smoked how long ago did patient quit smokin years ago alcohol intake: former substance use type: denies use current occupational status: other Travel in the last 8 weeks: None household members: family housing: house current occupational exposures/hazards: No caffeine: Yes PM Subjective & Objective Subjective Subjective:: Patient is a pleasant 89-year-old male who presents today for 6-week follow-up. Today he rates his pain at 1 out of 10. He denies any new trauma or injury. He states he is still doing wonderful from his initial SI injections that were back in May and that the pain has not returned. Patient does state that he does still have normal aches and pains that he finds within normal limits considering his age and arthritis on a daily basis. He states this is all very manageable. His Caio has been reviewed and is appropriate. Review of Systems: General: No recent weight changes, no fever, no sleep disturbances Respiratory: No cough, no shortness of air, no recurring pulmonary infections Cardiovascular/peripheral vascular: No chest pain, no palpitations, no edema, no shortness of breath Gastrointestinal: No new onset incontinence, normal bowel movements reported Genitourinary: No new onset incontinence Musculoskeletal: Low back pain Psychiatric: [Normal mood/affect] Neurological: [Denies weakness in extremities], [denies balance issues] Pain at rest (0-10 scale): 1 Objective Objective:: Physical Exam: General: Alert and oriented x3, no acute distress, pleasant and cooperative Lungs: Respirations even and unlabored, symmetrical chest expansion Eyes: PERRL Musculoskeletal: Flexion and extension of lumbar [spine] within normal limits Neurological: Speech clear, no gross sensory deficit Has patient had previous pain injection?: No Conservative treatment options previously tried: Home exercise plan Length of treatment: Longer than 12 weeks Meds Home Medications and Allergies Home Medications ?Medication ?Instructions ?Recorded ?Confirmed ?Type meclizine 12.5 mg tablet 12.5 mg PO BID PRN Dizziness 09/30/17 08/01/24 History tamsulosin 0.4 mg capsule 0.4 mg PO DAILY prostate 09/30/17 08/01/24 History cholecalciferol (vitamin D3) 50 2,000 unit PO DAILY Diet supplement 10/01/18 08/01/24 History mcg (2,000 unit) capsule finasteride 5 mg tablet 5 mg PO DAILY 10/31/21 08/01/24 History apixaban 2.5 mg tablet (Eliquis) 2.5 mg PO DIRECTED Blood Thinner 08/24/23 08/01/24 History nitroglycerin 0.4 mg sublingual 0.4 mg sublingual Q5M PRN chest 02/11/24 08/01/24 Rx tablet pain #20 tabs levothyroxine 50 mcg capsule 50 mcg PO DAILY thyroid #90 caps 03/21/24 08/01/24 Rx metoprolol succinate 25 mg See Rx Instructions .Route 04/14/24 08/01/24 Rx tablet,extended release 24 hr .COMPLEX #30 tabs furosemide 40 mg tablet See Rx Instructions .Route 05/02/24 08/01/24 Rx .COMPLEX #30 tabs levofloxacin 750 mg tablet 750 mg PO DAILY 7 days #7 tabs 06/20/24 08/01/24 Rx rosuvastatin 20 mg tablet See Rx Instructions .Route 07/26/24 08/01/24 Rx .COMPLEX #90 tabs New Prescriptions to Start Prescriptions: Allergies Allergy/AdvReac Type Severity Reaction Status Date / Time oxycodone (OXYCODONE) Allergy Unknown HALLUCINATI Verified 08/01/24 14:56 ONS acetaminophen (From Percocet) Allergy Verified 08/01/24 14:56 Assessment and Plan *Assessment and plan (1) Bilateral sacroiliitis: Status: Acute Category: Medical Code(s): M46.1 - Sacroiliitis, not elsewhere classified Plan Patient has continued to do well following his SI injections in May and has not had the pain return as it was previously. I did licensed professional counselor him that we will give him a 3-month follow-up. Patient was also counseled to call us if the pain does start to return between now and his next visit and we will move his appointment up. He agrees with this plan of care. Patient has been instructed to contact the clinic with any concerns before the next appointment. Dr. Lambert has reviewed this note and agrees with this plan of care. This note was dictated using voice recognition software and make contain errors or omissions. All injections are used with Lidocaine, Bupivacaine and dexamethasone. Occasionally urine drug screen is needed to verify patient's compliance with our office pain contract. This is ordered based off specific treatments related to chronic pain with the potential to abuse certain medications.
[2024-08-09 10:40] VITALS: BP 108/75; PULSE 71; RESP 14; O2SAT 97; BMI 23.7
== END 2024-08-09 23:59 | disposition home or self-care (01) ==
LOC: SC.PAIN 09:27
PROVIDERS: PCP Family Medicine; Visit Provider Nurse Practitioner Family
DX: M46.1 Sacroiliitis, not elsewhere classified (principal); Z79.01 Long term (current) use of anticoagulants
CPT/HCPCS: 99212; G0463

== ENCOUNTER 2024-12-15 16:21 | Emergency (ER) | payer MEDICARE, BC, SELFPAY ==
--- OUTSIDE RECORDS SUMMARY | 2024-12-15 16:32 | XMS_ITS | Clinical Summary ---
Author Organization [facility] Address [address] [place] [address] Phone Care Team Providers Care Model Photographers' Name Role Phone Riley Lara MD Unavailable Car Hobbs MD Primary Care Provider [phone] Oj Cowart MD Unavailable [phone] Allergies Active Allergy Reactions Criticality Noted Date Comments Favain Inhibitors 10/16/2015 Hyperkalemia Acetaminophen Other (See Comments) 02/07/2023 Arb-Angiotensin Receptor Antagonist 10/16/2015 Hyperkalemia Oxycodone Other (See Comments) 02/07/2023 Oxycodone-Acetaminophen Other (See Comments) hallucinate Medications rosuvastatin (CRESTOR) 20 mg tablet Take 20 mg by mouth daily. Active tamsulosin (FLOMAX) 0.4 mg Oral Capsule Take 0.4 mg by mouth daily. Active polyethylene glycol (GLYCOLAX, MIRALAX) 17 gram packetIndicatio ns:CAD (coronary artery disease),Hypert ension,SOB (shortness of breath),Fatigue Take 17 g by mouth daily. Active Cholecalciferol , Vitamin D3, 25 mcg (1,000 unit) Oral CapsuleIndicati ons:CAD (coronary artery disease),Hypert ension,SOB (shortness of breath),Fatigue Take 1,000 Units by mouth daily. Active cyanocobalamin 1,000 mcg Oral TabletIndicatio ns:CAD (coronary artery disease),Hypert ension,SOB (shortness of breath),Fatigue Take 1,000 mcg by mouth daily. Active meclizine (ANTIVERT) 12.5 mgIndications:C AD (coronary artery disease),Hypert ension,SOB (shortness of breath),Fatigue Take 12.5 mg by mouth 2 times daily as needed. Active nitroGLYCERIN (NITROSTAT) 0.4 mg SL Tablet, Sublingual Place 0.4 mg under the tongue every 5 minutes as needed. Active fUROsemide (LASIX) 40 mg Oral TabletIndicatio ns:Bradycardia Take 40 mg by mouth. Pt takes 1/2 tablet daily Active finasteride (PROSCAR) 5 mg Oral Tablet Take 5 mg by mouth daily. 12/21/2019 Active metoprolol succinate (TOPROL-XL) 25 mg Oral Tablet Sustained Release 24 hr Take 1 Tablet by mouth daily. 15 Tablet 6 01/27/2022 Active predniSONE (DELTASONE) 20 mg Oral Tablet 02/10/2024 Acti ve ofloxacin (FLOXIN) 0.3 % Otic Drops otic solution PLACE 10 DROPS INTO THE AFFECTED EAR(S) TWICE DAILY FOR 7 DAYS. 05/16/2024 Active LEVOthyroxine (SYNTHROID) 50 mcg Oral Tablet TAKE 1 TABLET BY MOUTH ONCE DAILY FOR THYROID. 03/21/2024 Active fluticasone propionate (FLONASE) 50 mcg/actuation Nasl [place], Suspension 1 [place] in each nostril daily. 05/02/2024 Active dexAMETHasone (DECADRON) 4 mg Oral Tablet Take 4 mg by mouth 2 times daily. 05/16/2024 Active cyclobenzaprine (FLEXERIL) 10 mg Oral Tablet Take 10 mg by mouth 3 times daily as needed. for muscle spasms 05/16/2024 Active ELIQUIS 2.5 mg Oral Tablet Take 1 Tablet by mouth 2 times daily. 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 Cowart Medtronic Implanted 01/20/2016 BIVICD Assessment & Plan (05/23/2024 2:18 PM EST): CAD (coronary artery disease) Overview (08/04/2011): 06/21/2009 GXT mild reversible defect inferior segment moderate in size EKG NON Diagnostic Hypertension Overview (08/04/2011): Echo 06/27/2009 EF 45-50% Hyperlipidemia Long-term (current) use of anticoagulants Hyperkalemia GERD (gastroesophageal reflux disease) Hiatal hernia History of enucleation of left eyeball History of DVT (deep vein thrombosis) Ischemic cardiomyopathy Resolved Problems Problem Noted Date Diagnosed Date Resolved Date ICD (implantable cardioverte r-defibrillator) battery depletion 10/30/2022 11/20/2022 Overview (10/30/2022): Added automatically from request for surgery [id number] Angina at rest 02/21/2014 04/06/2018 Tachyarrhythmia 04/06/2018 Junctional bradycardia 04/06 Overview (12/03/2011): S/P PPM implant Encounters Date Type Department Care Team Description 11/08/2024 Orders Only [facility] [address] [facility] [address] [place] [address] Oj Cowart MD Vector Remote Device 10/17/2024 Refill [facility] [address] [facility] [address] [place] [address] Michaela Roman, LINDA Medication Refill from Last 3 Months Surgical History Surgery Date Site/Laterality Comments CARDIAC PACEMAKER PLACEMENT 10/09/2002 Medtronic PPM EYE REMOVAL 04/19/1940 - 04/18/1941 CHOLECYSTECTOMY 04/19/1968 - 04/18/1969 HERNIA REPAIR right inquinal CARDIAC CATHETERIZATION 07/16/2009 [facility] CARDIAC CATHETERIZATION 11/05/2006 [facility] CORONARY ARTERY BYPASS GRAFT 10/05/2002 X3 Hemal Franks Patent saphenous vein vein graph to the ramus, Patent MORALES to the LAD Saphenous vein graft to obtuse marginal PACEMAKER INSERTION 12/18/2011 pacemaker generator replacement COLONOSCOPY CARDIAC DEFIBRILLATOR PLACEMENT 01/20/2016 Upgrade to a MDT BiV ICD - Dr. Cowart Medical History Medical History Date Comments CAD (coronary artery disease) Hypertension Hyperlipidemia Long-term (current) use of anticoagulants Hyperkalemia Tachyarrhythmia GERD (gastroesophageal reflux disease) Hiatal hernia History of enucleation of left eyeball History of DVT (deep vein thrombosis) Junctional bradycardia Pacemaker Diverticulitis Clotting disorder Blood circulation, collateral h/ o dvt Prostate disorder bph Family History Medical History Relation Name Comments Heart Disease Father Heart Disease Mother Relation Name Status Comments Father Mother Social History Tobacco Use Types Packs/Day Years Used Date Smoking Tobacco: Former Smokeless Tobacco: Never Tobacco Cessation:Counseling Given: Not Answered Comments:40 years ago Alcohol Use Standard Drinks/Week Comments No 0 (1 standard drink = 0.6 oz pur e alcohol) quit five years ago Sex and Gender Information Value Date Recorded Sex Assigned at Not on file Legal Sex Male 11:14 PM EDT Gender Identity Not on file Sexual Orientation Not on file Obstetrics History Last Filed Vital Signs Vital Sign Reading Time Taken Comments Blood Pressure 110/60 05/23/2024 2:07 PM EST Pulse 96 05/23/2024 2:07 PM EST Temperature 36.7 C (98 F) 12/06/2022 1:43 PM EDT Respiratory Rate 16 12/06/2022 4:14 PM EDT Oxygen Saturation 97% 05/23/2024 2:07 PM EST Inhaled Oxygen Concentration - - Weight 87.1 kg (192 lb) 05/23/2024 2:07 PM EST Height 182.9 cm (6') 12/01/2023 2:53 PM EDT Body Mass Index 26.04 12/01/2023 2:53 PM EDT Plan of Treatment Upcoming Encounters Date Type Department Care Team (Late st Contact Info) Description 05/24/2025 1:30 PM EST Office Visit [facility] [address] [facility] [address] [place] [address] 05/24/2025 2:00 PM EST Office Visit [facility] [address] [facility] [address] [place] [address] Oj Cowart MD [address] [facility] [place], [place] [address] Health Maintenance Due Date Last Done Comments Wellness Exam Medicare 1938 Pneumococcal Vaccine 50+ (1 of 2 - PCV) 1954 Zoster (1 of 2) 1954 RSV or 60+ (1 - 1-dose 75+ series) 2010 COVID-19 Vaccine ( season) 2023 03/09/2023, 04/27/2022, 10/27/2021, Additional history exists Influenza Vaccine (#1) 2024 , 01/28/2023, 01/23/2022, Additional history exists DTaP/TDaP/Td (2 - Td or Tdap) 09/10/2027 09/09/2017 Hepatitis B Vaccine Aged Out No longe r eligible based on patient's age to complete this topic Meningococcal B Vaccine Aged Out No l onger eligible based on patient's age to complete this topic Medical Devices Implanted Type Area Automobile Taillight Assembler Device Identifier Shelf Expiration Date Model / Serial / Lot Crtd Naturita Xt Hf Quad Mri Df4 Surescan - [id number] Implanted:Qty: 1 on 11/06/2022 by Oj Cowart MD at [facility] TECHNICAL BUSINESS ANALYST-D ICD MEDTRONIC:CARDI AC WAFER PRODUCTION WORKER [id number] 03/16/2024 [id number] / [id number]^2002 / Lead Tachyarrhythmia Implantable Sprint Quattro Secure 55cm - [id number] Implanted:Qty: 1 on 01/20/2016 by Oj Cowart MD at [facility] Lead MEDTRONIC:OLGA RASHEEDS [id number] / [id number] / Lead Attain Performa 88cm - [id number] Implanted:Qty: 1 on 01/20/2016 by Oj Cowart MD at [facility] Lead MEDTRONIC:OLGA MARTINS [id number] / [id number] / Rt Eye Implant Envelope Tyrx Absb Antbtc Impl 2.9x3.3in Sgl-Garcia Foil [facility] - [id number] Implanted:Qty: 1 on 11/06/2022 by Oj Cowart MD at [facility] MEDTRONIC:PACBRAVO Connell SYS [id number] 07/25/2023 [id number] / / [id number] Explanted Type Area Automobile Taillight Assembler Device Identifier Shelf Expiration Date Model / Serial / Lot Amplia Mri Quad Crtd [id number]/3/2016 Implanted:Qty: 1 on 01/20/2016 by Oj Cowart MD Explanted:(Quantit y not on file) Explanted:Qty: 1 on 11/06/2022 by Oj Cowart MD at [facility] ICD MEDTRONIC / [id number] / Pacemaker Adapta Dr Dual Chamber With At/Af Interventions Cardiac Compass Arrhythmia Monitoring And Mvp Mode - [id number] Implanted:Qty: 1 on 12/18/2011 at [facility] [employer] Explanted:Qty: 1 on 01/20/2016 at [facility] MEDTRONIC:PACING SYS ADDR01 / [id number] / Procedures Procedure Name Priority Date/Time Associated Diagnosis Comments SC INTERROGATION EVAL REMOTE </90 D /2/LOSS CONTROL REPRESENTATIVE LD DFB Routine 11/08/2024 12:00 AM EDT Vector Remote Device from Last 3 Months Results * VECTOR REMOTE DEVICE (11/08/2024 12:00 AM EDT) 11/08/2024 Narrative [facility] - 11/08/2024 12:00 AM EDT No significant episodes. NSVT: 47, avaialble EGMs c/w AF/RVR with PVCs and a ventricular couplet. V. Sensing Episodes: 1388, longest 1m:10s. Permanent AF. Patient on AC. Mode: VVIR. WAISTBAND SETTER LOCKSTITCH: 95%. Effective BiVP: 94%. Normal device function. Device Advisory. us Oj Cowart MD [facility] CARDIAC CATH ORDERABLE S Final Result [facility] [address] [place] [address] from Last 3 Months Insurance MEDICARE [place] PART A AND B MEDICARE [place] PART A AND B O Advance Directives For more information, please contact: [phone] * Full Code (Latest Code Status on File) Date Activated Date Inactivated Comments 02/20/2014 3:49 PM 02/24/2014 2:36 PM Care Teams Model Photographers' Relationship Specialty Start Date End Date Car Hobbs MD [facility] [address] [place] [address] PCP - General Family Medicine 05/17/13 Riley Lara MD [address] [place] [address] [place] [address] Physician Internal Medicine-Cardiovascular Disease 05/12/11 Oj Cowart MD [address] [place] [address] [place] [address] Consulting Physician Internal Medicine - Clinical Cardiac Electrophysiology 02/05/16
--- OUTSIDE RECORDS SUMMARY | 2024-12-15 16:32 | XMS_ITS | Encounter Summary ---
Author Organization [place] [address] Care Team Providers Care Wellness Manager Name Role Phone Alex Hobbs MD Primary Care Provider [phone] Riley Lara MD Unavailable Car Hobbs MD Primary Care Provider [phone] Oj Cowart MD Unavailable [phone] Encounter Details Date Type Department Care Team (Late st Contact Info) Description 06/13/2009 Orders Only [facility] [address] [place] [address] Riley Lara MD [address] [place] [address] Social History Tobacco Use Types Packs/Day Years Used Date Smoking Tobacco: Never Assessed Sex and Gender Information Value Date Recorded Sex Assigned at Not on file Legal Sex Male 11:14 PM EDT Gender Identity Not on file Sexual Orientation Not on file documented as of this encounter Plan of Treatment Upcoming Encounters Date Type Department Care Team (Late st Contact Info) Description 05/24/2025 1:30 PM EST Office Visit [facility] [address] [facility] [address] [place] [address] 05/24/2025 2:00 PM EST Office Visit [facility] [address] [facility] [address] [place] [address] Oj Cowart MD [address] [place] [address] [place] [address] documented as of this encounter Procedures Procedure Name Priority Date/Time Associated Diagnosis Comments VASCULAR STUDY - HISTORICAL Routine 06/13/2009 12:00 AM EST documented in this encounter Results * VASCULAR STUDY - HISTORICAL (06/13/2009 12:00 AM EST) Anatomical Region Laterality Modality Other 06/13/2009 Narrative 04/22/2011 1:40 AM EST NOTICE: This report was electronically copied on 06/05/2011 from historical data generated by a practice prior to that practice using [employer] for Medical Records. Performing Provider: TONG us Riley Lara MD IMG VASCULAR ORDERABLES Final Re sult documented in this encounter Visit Diagnoses Not on filedocumented in this encounter Care Teams Wellness Manager Relationship Specialty Start Date End Date Alex Hobbs MD [address] [place] [address] [address] [place] [address] PCP - General 08/26/10 05/16/13 Car Hobbs MD [address] [place] [address] [address] [place] [address] PCP - General Family Medicine 05/17/13 Riley Lara MD [address] [place] [address] [place] [address] Physician Internal Medicine-Cardiovascular Disease 05/12/11 Oj Cowart MD [address] [place] [address] [place] [address] Consulting Physician Internal Medicine - Clinical Cardiac Electrophysiology 02/05/16 documented as of this encounter
--- OUTSIDE RECORDS SUMMARY | 2024-12-15 16:32 | XMS_ITS | Encounter Summary ---
Author Organization [place] [address] Care Team Providers Care Clinical Supervisor Name Role Phone Riley Lara MD Unavailable Car Hobbs MD Primary Care Provider [phone] Oj Cowart MD Unavailable [phone] Encounter Details Date Type Department Care Team (Late st Contact Info) Description 11/08/2024 Orders Only [facility] [address] [facility] [address] [place] [address] Oj Cowart MD [address] [place], [place] [id number] Vector Remote Device Social History Tobacco Use Types Packs/Day Years Used Date Smoking Tobacco: Former Smokeless Tobacco: Never Comments:40 years ago Alcohol Use Standard Drinks/Week Comments No 0 (1 standard drink = 0.6 oz pur e alcohol) quit five years ago Sex and Gender Information Value Date Recorded Sex Assigned at Not on file Legal Sex Male 11:14 PM EDT Gender Identity Not on file Sexual Orientation Not on file documented as of this encounter Functional Status * Is the person deaf or does he/she have serious difficulty hearing? Answer Date of Assessment Author Yes 02/24/2014 8:22 AM Marcello Ferro, ROD * Is the person blind or does he/she have serious difficulty seeing even when wearing glasses? Answer Date of Assessment Author No 02/24/2014 8:22 AM Marcello Ferro RN * Does this person have serious difficulty walking or climbing stairs? Answer Date of Assessment Author No 02/24/2014 8:22 AM Marcello Ferro RN * Does this person have difficulty dressing or bathing? Answer Date of Assessment Author No 02/24/2014 8:22 AM Marcello Ferro RN * Because of a physical, mental or emotional condition, does this person have difficulty doing errands alone such as visiting a doctor's office or shopping? Answer Date of Assessment Author No 02/24/2014 8:22 AM Marcello Ferro RN documented as of this encounter Mental Status * Because of a physical, mental or emotional condition, does this person have serious difficulty concentrating, remembering or making decisions? Answer Entry Date Author No 02/24/2014 8:22 AM Marcello Ferro RN documented in this encounter Plan of Treatment Upcoming Encounters Date Type Department Care Team (Late st Contact Info) Description 05/24/2025 1:30 PM EST Office Visit [facility] [address] [place] [address] [place] [phone] 05/24/2025 2:00 PM EST Office Visit [facility] [address] [place] [address] [place] [address] Oj Cowart MD [address] [place] [address] documented as of this encounter Procedures Procedure Name Priority Date/Time Associated Diagnosis Comments RI INTERROGATION EVAL REMOTE </90 D 1/2/RUG DRY ROOM ATTENDANT LD DFB Routine 11/08/2024 12:00 AM EDT Vector Remote Device documented in this encounter Results * VECTOR REMOTE DEVICE (11/08/2024 12:00 AM EDT) 11/08/[address] [facility] - 11/08/2024 12:00 AM EDT No significant episodes. NSVT: 47, avaialble EGMs c/w AF/RVR with PVCs and a ventricular couplet. V. Sensing Episodes: 1388, longest 1m:10s. Permanent AF. Patient on AC. Mode: VVIR. ZINC PLATER: 95%. Effective BiVP: 94%. Normal device function. Device Advisory. us Oj Cowart MD [facility] CARDIAC CATH ORDERABLE S Final Result [facility] [address] [place], [place] [id number] documented in this encounter Visit Diagnoses Diagnosis Vector Remote Device documented in this encounter Additional Health Concerns Assessment Noted Time A fall risk assessment has been complete d for the patient 08/30/2023 12:54 PM EDT documented as of this encounter Care Teams Clinical Supervisor Relationship Specialty Start Date End Date Car Hobbs MD [facility] [place] [address] [address] [place] [address] PCP - General Family Medicine 05/17/13 Riley Lara MD [address] [place] [address] [place] [address] Physician Internal Medicine-Cardiovascular Disease 05/12/11 Oj Cowart MD [address] [place] [address] [place] [address] Consulting Physician Internal Medicine - Clinical Cardiac Electrophysiology 02/05/16 documented as of this encounter
--- OUTSIDE RECORDS SUMMARY | 2024-12-15 16:32 | XMS_ITS | Encounter Summary ---
Author Organization [place] [place] [address] Care Team Providers Care Department Assistant Name Role Phone Alex Hobbs MD Primary Care Provider [phone] Riley Lara MD Unavailable Car Hobbs MD Primary Care Provider [phone] Oj Cowart MD Unavailable [phone] Encounter Details Date Type Department Care Team (Late st Contact Info) Description 07/16/2008 Orders Only [facility] [place] [address] [place] [address] Car Parker MD Social History Tobacco Use Types Packs/Day Years [...] Office Visit [facility] [address] [facility] [address] [place] [address] 05/24/2025 2:00 PM EST Office Visit [facility] [address] [facility] [address] [place] [address] Oj Cowart MD [address] [place] [address] documented as of this encounter Procedures Procedure Name Priority Date/Time Associated Diagnosis Comments ECHO - HISTORICAL Routine 07/16/2008 12: 00 AM EDT documented in this encounter Results * ECHO - HISTORICAL (07/16/2008 12:00 AM EDT) Anatomical Region Laterality Modality Other 07/16/2008 Narrative 04/22/2011 1:27 AM EST NOTICE: This report was electronically copied on 06/06/2011 from historical data generated by a practice prior to that practice using [facility] [employer] for Medical Records. Performing Provider: IZZY us Car Parker MD IMG ECHO ORDERABLES Final Resul t documented in this encounter Visit Diagnoses Not on filedocumented in this encounter Care Teams Department Assistant Relationship Specialty Start Date End Date Alex Hobbs MD [address] [place] [address] [address] [place] [address] PCP - General 08/26/10 05/16/13 Car Hobbs MD [facility] [address] [place] [address] PCP - General Family Medicine 05/17/13 Riley Lara MD [address] [place] [place] [address] [place] [address] Physician Internal Medicine-Cardiovascular Disease 05/12/11 Oj Cowart MD [address] [place] [place] [address] [place] [address] Consulting Physician Internal Medicine - Clinical Cardiac Electrophysiology 02/05/16 documented as of this encounter
--- OUTSIDE RECORDS SUMMARY | 2024-12-15 16:32 | XMS_ITS | Encounter Summary ---
Author Organization [place] [address] Care Team Providers Care Housekeeper Home Name Role Phone Riley Lara MD Unavailable Car Hobbs MD Primary Care Provider [phone] Oj Cowart MD Unavailable [phone] Encounter Details Date Type Department Care Team (Late st Contact Info) Description 09/02/2015 Orders Only [facility] [place] [address] [place] [address] Riley Lara MD [address] [place] [address] Social History Tobacco Use Types Packs/Day [...] Entry Date Author No 02/24/2014 8:22 AM Dionne Ferro RN documented in this encounter Plan of Treatment Upcoming Encounters Date Type Department Care Team (Late st Contact Info) Description 05/24/2025 1:30 PM EST Office Visit [facility] [address] [place] [address] [place] [phone] 05/24/2025 2:00 PM EST Office Visit [facility] [address] [place] [address] [place] [address] Oj Cowart MD [address] [place] [address] documented as of this encounter Procedures Procedure Name Priority Date/Time Associated Diagnosis Comments PACEART REPORT Routine 09/02/2015 5:58 PM EDT documented in this encounter Results * PACEART REPORT (09/02/2015 5:58 PM EDT) 09/02/2015 5:58 PM EDT Narrative [facility] - 09/02/2015 2:18 PM EDT MVPR 60/130 Battery 8.5 years. No malfunction noted. 8 atrial high rates; last 07/23/15; longest 6 min, 11 sec. Max 136 bpm. Pt on Warfarin. us Riley Lara MD [facility] CARDIAC CATH ORDERABLES Poly bianchi Result [facility] 1 [place] [address] documented in this encounter Visit Diagnoses Not on filedocumented in this encounter Care Teams Housekeeper Home Relationship Specialty Start Date End Date aCr Hobbs MD [address] [place] [address] PCP - General Family Medicine 05/17/13 Riley Lara MD [address] [place] [address] [place] [address] Physician Internal Medicine-Cardiovascular Disease 05/12/11 Oj Cowart MD [address] [place] [address] Consulting Physician Internal Medicine - Clinical Cardiac Electrophysiology 02/05/16 documented as of this encounter
--- OUTSIDE RECORDS SUMMARY | 2024-12-15 16:32 | XMS_ITS | Encounter Summary ---
Author Organization [place] [address] Care Team Providers Care Technology Training Associate Name Role Phone Alex Hobbs MD Primary Care Provider [phone] Riley Lara MD Unavailable Car Hobbs MD Primary Care Provider [phone] Oj Cowart MD Unavailable [phone] Encounter Details Date Type Department Care Team (Late st Contact Info) Description 06/27/2009 Orders Only [facility] [place] [address] [place] [address] Katie Brown MD [address] [place] [id number] Social History Tobacco Use Types Packs/Day Years [...] Office Visit [facility] [address] [facility] [address] [place] [address] 05/24/2025 2:00 PM EST Office Visit [facility] [address] [facility] [address] [place] [address] Oj Cowart MD [address] [place] [address] [place] [address] documented as of this encounter Procedures Procedure Name Priority Date/Time Associated Diagnosis Comments ECHO - HISTORICAL Routine 06/27/2009 12: 00 AM EST documented in this encounter Results * ECHO - HISTORICAL (06/27/2009 12:00 AM EST) Anatomical Region Laterality Modality Other 06/27/2009 Narrative 04/22/2011 1:35 AM EST NOTICE: This report was electronically copied on 06/07/2011 from historical data generated by a practice prior to that practice using [facility] [employer] for Medical Records. Performing Provider: OLMAN us Katie Hastings MD IMG ECHO ORDERABLES Poly l Result documented in this encounter Visit Diagnoses Not on filedocumented in this encounter Care Teams Technology Training Associate Relationship Specialty Start Date End Date Alex Hobbs MD [address] [place] [address] [address] [place] [phone] PCP - General 08/26/10 05/16/13 Car Hobbs MD 1210 [facility] [address] [place] [address] PCP - General Family Medicine 05/17/13 Riley Lara MD [address] [place] [address] [place] [address] Physician Internal Medicine-Cardiovascular Disease 05/12/11 Oj Cowart MD [address] [place] [address] [place] [address] Consulting Physician Internal Medicine - Clinical Cardiac Electrophysiology 02/05/16 documented as of this encounter
--- OUTSIDE RECORDS SUMMARY | 2024-12-15 16:32 | XMS_ITS | Encounter Summary ---
Author Organization [place] [address] Care Team Providers Care Diet Counselor Name Role Phone Riley Lara MD Unavailable Car Hobbs MD Primary Care Provider [phone] Oj Cowart MD Unavailable [phone] Encounter Details Date Type Department Care Team (Late st Contact Info) Description 05/03/2014 Orders Only [facility] [place] [address] [place] [address] Riley Lara MD [address]11 [place] [address] Social History Tobacco Use Types [...] EST Office Visit [facility] [address] [place] [address] [place] [phone] 05/24/2025 2:00 PM EST Office Visit [facility] [address] [place] [address] [place] [address] Oj Cowart MD [address] [place] [address] documented as of this encounter Procedures Procedure Name Priority Date/Time Associated Diagnosis Comments PACEART REPORT Routine 05/03/2014 2:23 PM EST documented in this encounter Results * PACEART REPORT (05/03/2014 2:23 PM EST) 05/03/2014 2:23 PM EST Narrative [facility] - 05/03/2014 9:35 AM EST MVPR 60-130 Battery 7 years. One high atrial rate x 3 min 27 sec on 09-28-13. AF burden 0.1%. Pt on Coumadin. High V threshold. Unipolar 1.75v@0.46ms. Polarity changed to unipolar for better threshold. No malfunction. us Riley Lara MD [facility] CARDIAC CATH ORDERABLES Poly l Result [facility] 1 [place] [address] documented in this encounter Visit Diagnoses Not on filedocumented in this encounter Care Teams Diet Counselor Relationship Specialty Start Date End Date Car Hobbs MD [address]10 [facility] [address] [place] [address] PCP - General Family Medicine 05/17/13 Riley Lara MD [address] [place] [address] [place] [address] Physician Internal Medicine-Cardiovascular Disease 05/12/11 Oj Cowart MD [address] [place] [address] [place] [address] Consulting Physician Internal Medicine - Clinical Cardiac Electrophysiology 02/05/16 documented as of this encounter
--- OUTSIDE RECORDS SUMMARY | 2024-12-15 16:32 | XMS_ITS | Encounter Summary ---
Author Organization [place] [address] Care Team Providers Care Direct Casting Operator Name Role Phone Riley Lara MD Unavailable Car Hobbs MD Primary Care Provider [phone] Oj Cowart MD Unavailable [phone] Reason for Visit * Reason Comments Medication Refill Encounter Details Date Type Department Care Team (Late st Contact Info) Description 10/17/2024 Refill [facility] 711 [facility] [address] [place] [address] Michaela Roman, DROP PRESS HAND [address] [place], [place] [phone] Medication Refill Social History Tobacco Use Types Packs/Day Years [...] Assessment Author Yes 02/24/2014 8:22 AM Marcello Ferro RN * Is the person blind or does [...] Marcello Ferro RN documented in this encounter Ordered Prescriptions Prescription Sig Dispense Quantity Refills Last Filled Start Date End Date ELIQUIS 2.5 mg Oral Tablet Take 1 Tablet by mouth 2 times daily. 60 Tablet 5 10/17/2024 documented in this encounter Plan of Treatment Upcoming Encounters Date Type Department Care Team (Late st Contact Info) Description 05/24/2025 1:30 PM EST Office Visit [facility] [address] [place] [phone] 05/24/2025 2:00 PM EST Office Visit [facility] [address] [place] [address] Oj Cowart MD [address] [place] [address] documented as of this encounter Visit Diagnoses Not on filedocumented in this encounter Discontinued Medications Medication Sig Discontinue Reason Start Date End Da te ELIQUIS 2.5 mg Oral Tablet Take 1 Tablet by mouth 2 times daily. 04/20/2024 10/17/2024 documented as of this encounter Additional Health Concerns Assessment Noted Time A fall risk assessment has been complete d for the patient 08/30/2023 12:54 PM EDT documented as of this encounter Care Teams Direct Casting Operator Relationship Specialty Start Date End Date Car Hobbs MD [facility] [facility] [address] [place] [address] PCP - General Family Medicine 05/17/13 Riley Lara MD [address] [place] [address] [place] [address] Physician Internal Medicine-Cardiovascular Disease 05/12/11 Oj Cowart MD [address] [place] [address] [place] [address] Consulting Physician Internal Medicine - Clinical Cardiac Electrophysiology 02/05/16 documented as of this encounter
--- OUTSIDE RECORDS SUMMARY | 2024-12-15 16:32 | XMS_ITS | Encounter Summary ---
Author Organization [facility] [place] [address] Care Team Providers Care Pattern Worker Name Role Phone Riley Lara MD Unavailable Car Hobbs MD Primary Care Provider [phone] Oj Cowart MD Unavailable [phone] Encounter Details Date Type Department Care Team (Late st Contact Info) Description 01/20/2016 Orders Only [facility] 7[address] [facility] [address] [place] [address] Oj Cowart MD [address] [place] [address] Social History Tobacco Use Types Packs/Day Years [...] EST Office Visit [facility] [address] [place] [phone] 05/24/2025 2:00 PM EST Office Visit [facility] [address] [place] [phone] Oj Cowart MD [address] [place] [address] documented as of this encounter Procedures Procedure Name Priority Date/Time Associated Diagnosis Comments PACEART REPORT Routine 01/20/2016 7:15 PM EDT documented in this encounter Results * PACEART REPORT (01/20/2016 7:15 PM EDT) 01/20/2016 7:15 PM EDT Narrative [facility] - 01/20/2016 3:16 PM EDT implant report us Oj Cowart MD [facility] CARDIAC CATH ORDERABLE S Final Result Performing Organization Address City/State/[facility] Co de Phone Number [facility] 1 [place] [address] documented in this encounter Visit Diagnoses Not on filedocumented in this encounter Additional Health Concerns Assessment Noted Time A fall risk assessment has been complete d for the patient 12/24/2015 2:04 PM EDT documented as of this encounter Care Teams Pattern Worker Relationship Specialty Start Date End Date Car Hobbs MD [facility] [address] [place] [place] [address] PCP - General Family Medicine 05/17/13 Riley Lara MD [address] [place] [address] [place] [address] Physician Internal Medicine-Cardiovascular Disease 05/12/11 Oj Cowart MD [address] [place] [address] [place] [address] Consulting Physician Internal Medicine - Clinical Cardiac Electrophysiology 02/05/16 documented as of this encounter
--- OUTSIDE RECORDS SUMMARY | 2024-12-15 16:33 | XMS_ITS | Clinical Summary ---
Author Organization [facility] Address [address] [place] [id number] Care Team Providers Care Head Cd Reactor Operator Name Role Phone Car Hobbs MD Primary Care Provider [phone] Allergies Active Allergy Reactions Criticality Noted Date Comments Oxycodone Hallucinations Medium 10/19/2017 Medications polyethylene glycol (MIRALAX) packet Take 17 g by mouth Daily As Needed. Active tamsulosin (FLOMAX) 0.4 MG capsule 24 hr capsule Take 1 capsule by mouth Every Night. Active meclizine (ANTIVERT) 12.5 MG tablet Take 12.5 mg by mouth 2 (Two) Times a Day As Needed for dizziness. Active warfarin (COUMADIN) 5 MG tabletIndicatio ns:pt may resume coumadin on Wednesday!!! Take 5 mg by mouth Daily. Pt holding 10/19/[address] Higgins - [facility] 5 mg, T,R,Sa,Sun 2.5 mg Active metoprolol succinate XL (TOPROL-XL) 25 MG 24 hr tablet Take 25 mg by mouth Daily. Active rosuvastatin (CRESTOR) 20 MG tablet Take 20 mg by mouth Daily. Active vitamin B-12 (CYANOCOBALAMIN ) 1000 MCG tablet Take 1,000 mcg by mouth Daily. Active Cholecalciferol (VITAMIN D-3) 1000 units capsule Take 1,000 Units by mouth Daily. Active nitroglycerin (NITROSTAT) 0.[address] 0.4 mg under the tongue Every 5 (Five) Minutes As Needed for Chest Pain. Take no more than 3 doses in 15 minutes. Active Active Problems Problem Noted Date Diagnosed Date Prostatic hypertrophy 10/26/2017 Social History Tobacco Use Types Packs/Day Years Used Date Smoking Tobacco: Former Smokeless Tobacco: Former Chew Alcohol Use Standard Drinks/Week Comments No 0 (1 standard drink = 0.6 oz pur e alcohol) Abuse Screen Answer Date Recorded Unsafe at Home or Work/School Not on file Feels Threatened by Someone? Not on file 03/2023 Does Anyone Keep You from Co ntacting Others or Doint Things Outside the Home? Not on file 01/28/2023 Physical Sign of Abuse Present Not on file 1 Housing Stability Answer Date Recorded Current Living Arrangements Not on file 01/17 Potentially Unsafe Housing Conditions Not on erin e 01/28/2023 Family and Community Support Answer James e Recorded Help with Day-to-Day Activities Not on file 01/28/2023 Lonely or Isolated Not on file 01/28/2023 Employment Answer Date Recorded Do you want help finding or keeping work or a gus b? Not on file 01/28/2023 Disabilities Answer Date Recorded Concentrating, Remembering, or Making Decisions Difficulty Not on file 01/28/2023 Doing Errands Independently Difficulty Not on fi le 01/28/2023 Education Answer Date Recorded Help with school or training? Not on file Preferred Language Not on file 01/28/2023 Sex and Gender Information Value Date Recorded Sex Assigned at Not on file Legal Sex Male 11:26 AM EDT Gender Identity Not on file Sexual Orientation Not on file Last Filed Vital Signs Vital Sign Reading Time Taken Comments Blood Pressure 146/84 10/28/2017 7:00 AM EDT Pulse 79 10/28/2017 7:00 AM EDT Temperature 36.9 C (98.4 F) 10/28/2017 7:00 AM EDT Respiratory Rate 18 10/28/2017 7:00 AM EDT Oxygen Saturation 94% 10/28/2017 7:00 AM EDT Inhaled Oxygen Concentration - - Weight 83.9 kg (185 lb) 10/26/2017 6:14 AM EDT Height 182.9 cm (6') 10/26/2017 6:14 AM EDT Body Mass Index 25.09 10/26/2017 6:14 AM EDT Plan of Treatment Health Maintenance Due Date Last Done Comments TDAP/TD VACCINES (1 - Tdap) 1954 Pneumococcal Vaccine 50+ (1 of 1 - PCV) 1985 ZOSTER VACCINE (1 of 2) 1985 RSV Vaccine - Adults (1 - 1-dose 75+ series) 1 ANNUAL PHYSICAL 10/19/2017 COVID-19 Vaccine (1 - 2023- season) 2023 INFLUENZA VACCINE 01/17/2025 Medical Devices Implanted Type [employer] Device Identifier Shelf Expiration Date Model / Serial / Lot Icd-01/20/2016 Implanted:2015 (Quantity not on file) ICD MEDTRONIC [id number] / [id number] / Description:implanted by Oj marcus, Insurance MEDICARE A & B [facility] Advance Directives Documents on File Type Date Recorded Patient Resident Care Manager Rn Expl anation LIVING WILL - SCAN 10/19/2017 10:32 AM YUSEF NG WILL 06/14/2013 * CPR (Attempt to Resuscitate) (Latest Code Status on File) Date Activated Date Inactivated Comments 10/26/2017 1:30 PM 10/28/2017 2:10 PM Question Answer Comments Code Status (Patient has no pulse and is not breathing): CPR (Attempt to Resuscitate) Medical Interventions (Patie nt has pulse or is breathing): Full Healthcare Agents on File Name Relationship Healthcare Agent Relationshi p Communication Phuong Black Daughter Health Care Surrogate Care Teams Head Cd Reactor Operator Relationship Specialty Start Date End Date Car Hobbs MD [facility] [address] [facility] [place] [address] PCP - General Family Medicine 10/19/17
--- OUTSIDE RECORDS SUMMARY | 2024-12-15 16:33 | XMS_ITS | Encounter Summary ---
Author Organization [place] [address] Care Team Providers Care Windows Vmware Administrator Name Role Phone Alex Hobbs MD Primary Care Provider [phone] Riley Lara MD Unavailable Car Hobbs MD Primary Care Provider [phone] Oj Cowart MD Unavailable [phone] Encounter Details Date Type Department Care Team (Late st Contact Info) Description 02/06/2013 Orders Only [facility] [place] [address] [place] [address] Riley Lara MD [address] [place] [address] Social History Tobacco Use Types Packs/Day Years Used Date Smoking Tobacco: Former Smokeless Tobacco: Never Comments:40 years ago Alcohol Use Standard Drinks/Week Comments No 0 (1 standard drink = 0.6 oz pur e alcohol) Sex and Gender Information Value Date Recorded [...] Ctr Edg 711 [facility] [address] [place] [address] 05/24/2025 2:00 PM EST Office Visit [facility] [address] [place] [address] Oj Cowart MD [address] [place] [address] [place] [address] documented as of this encounter Procedures Procedure Name Priority Date/Time Associated Diagnosis Comments PACEART REPORT Routine 02/06/2013 12:02 AM EDT documented in this encounter Results * PACEART REPORT (02/06/2013 12:02 AM EDT) 02/06/2013 12:[address] [facility] - 02/13/2013 9:04 PM EDT routine carelink. no episodes. us Riley Lara MD [facility] CARDIAC CATH ORDERABLES Poly l Result [facility] 1 [place] [address] documented in this encounter Visit Diagnoses Not on filedocumented in this encounter Care Teams Windows Vmware Administrator Relationship Specialty [place] [address] [place] [address] [address] [place] [address] PCP - General 08/26/10 05/16/13 Car Hobbs MD [address] [place] [address] [address] [place] [address] PCP - General Family Medicine 05/17/13 Riley Lara MD [address] [place] [address] [place] [address] Physician Internal Medicine-Cardiovascular Disease 05/12/11 Oj Cowart MD [address] [place] [address] [place] [address] Consulting Physician Internal Medicine - Clinical Cardiac Electrophysiology 02/05/16 documented as of this encounter
--- OUTSIDE RECORDS SUMMARY | 2024-12-15 16:33 | XMS_ITS | Encounter Summary ---
Author Organization [place] [address] Care Team Providers Care Wood Heel Back Liner Name Role Phone Alex Hobbs MD Primary Care Provider [phone] Riley Lara MD Unavailable Car Hobbs MD Primary Care Provider [phone] Oj Cowart MD Unavailable [phone] Encounter Details Date Type Department Care Team (Late st Contact Info) Description 05/10/2013 Orders Only [facility] [place] [address] [place] [address] Riley Lara MD [address] [place] [address] Social History Tobacco Use Types [...] Office Visit [facility] 711 [facility] [address] [place] [address] 05/24/2025 2:00 PM EST Office Visit [facility] [address] [facility] [address] [place] [address] Oj Cowart MD 7[address] [facility] [place] [address] documented as of this encounter Procedures Procedure Name Priority Date/Time Associated Diagnosis Comments PACEART REPORT Routine 05/10/2013 1:16 PM EST documented in this encounter Results * PACEART REPORT (05/10/2013 1:16 PM EST) Narrative [facility] - 05/10/2013 1:16 PM EST MVPR 60-130. Battery 11yrs. 3- high atrial rates. Last on 03/27/13 x 1 min 59 sec. Longest x 6 min 5 sec on 08/29/12. Pt takes ASA only. AF burden 0.1%. RV output decreased to 2.5v for safety margin. No malfunction. us Riley Lara MD [facility] CARDIAC CATH ORDERABLES Poly l Result [facility] 1 [place] [address] documented in this encounter Visit Diagnoses Not on filedocumented in this encounter Care Teams Wood Heel Back Liner Relationship Specialty Start Date End Date Alex Hobbs MD [address] [facility] [address] [place] [address] PCP - General 08/26/10 05/16/13 Car Hobbs MD 1210 [facility] [address] [place] [address] PCP - General Family Medicine 05/17/13 Riley Lara MD [address] [place] [address] [place] [address] Physician Internal Medicine-Cardiovascular Disease 05/12/11 Oj Cowart MD [address] [place] [place] [address] Consulting Physician Internal Medicine - Clinical Cardiac Electrophysiology 02/05/16 documented as of this encounter
[2024-12-15 16:34] VITALS: BP 121/72; PULSE 92; RESP 16; TEMP 36.6; O2SAT 96; BMI 24.4
--- NOTE | 2024-12-15 16:46 | PC.NURSE ---
provider to bedside
[2024-12-15] MEDS: TET/DIPHTH/PERT-ADULT 0.5ML SYRINGE 0.5 ML IM (16:59)
[2024-12-15] MEDS: LIDOCAINE 1% W/EPI 1:100,000 20ML VIAL 20 ML SQ (17:00)
--- NOTE | 2024-12-15 17:35 | ED_ITS ---
<Statement entered by Sean Heck MD - 12/15/24 23:52> I was consulted by the TRAVIS, and we discussed the complexity of the problems being addressed. I approved the treatment and management plan for this patient's care in the emergency department, thus performing a substantive portion of the medical decision making. Sean Heck MD Discharge Plan Disposition Patient Disposition: Home, Self-Care Prescriptions Prescriptions: New amoxicillin-pot clavulanate 875-125 mg tablet 1 tab PO BID Qty: 20 0RF No Action tamsulosin 0.4 mg capsule,extended release 24hr 0.4 mg PO DAILY meclizine 12.5 mg tablet 12.5 mg PO BID PRN (Reason: Dizziness) Eliquis 2.5 mg tablet 2.5 mg PO DIRECTED Patient Comments: TAKE ONE TABLET BY MOUTH TWICE DAILY nitroglycerin 0.4 mg tablet, sublingual 0.4 mg sublingual Q5M PRN (Reason: chest pain) Qty: 20 0RF Rx Instructions: do not exceed 3 doses per episode rosuvastatin 20 mg tablet See Rx Instructions .ROUTE .COMPLEX Qty: 90 1RF Dose Instruction: Take 1 tablet by mouth once a day (at bedtime) Rx Instructions: Take 1 tablet by mouth once a day (at bedtime) finasteride 5 mg tablet 5 mg PO DAILY Qty: 90 1RF levothyroxine 50 mcg capsule 50 mcg PO DAILY Qty: 90 1RF metoprolol succinate 25 mg tablet extended release 24 hr See Rx Instructions .ROUTE .COMPLEX Qty: 30 5RF Dose Instruction: Take 1 tablet by mouth once daily Rx Instructions: Take 1 tablet by mouth once daily furosemide 40 mg tablet See Rx Instructions .ROUTE .COMPLEX Qty: 30 2RF Dose Instruction: Take 1 Tablet by mouth once daily for edema. Rx Instructions: Take 1 Tablet by mouth once daily for edema. cholecalciferol (vitamin D3) 2,000 UNIT capsule 2,000 unit PO DAILY levofloxacin 750 mg tablet 750 mg PO DAILY 7 Days Qty: 7 0RF Referrals Follow up/Referrals: Anjel RIOJAS MD [Primary Care Provider, Family Practice] - See instructions Activity Restrictions/Add. Instructions Additional Instructions/Restrictions: Keep finger clean with soap and water. Take Tylenol for any pain or swelling. May use ice as well. Sutures need to be removed in 7 to 10 days. This can be done by your primary care provider. If any other problems or concerns arise please return to the ED. Lease take medication as directed. Clinical Impressions Clinical Impression: Dog bite Instructions Patient Instructions: Animal Bites Print Language Print Language: Lithuanian Discharge ED Provider: Sean Heck General Adult HPI General Chief complaint: Animal Bite Stated complaint: Dog bite Right ring finger 12/15/24 1200 Time Seen by Provider: 12/15/24 16:38 Mode of Arrival: Ambulatory Source of Information: Patient Description of Symptoms (Recalled from ER Triage Doc. by RN): Patient states that about noon today he was bitten in his right 4th finger by his son's dog. States the dog is up to date on vaccinations, states it has been a while since his last TDAP. Patient with laceration to underside of left 4th finger, currently bleeding. Patient takes Xarelto. History of Present Illness HPI narrative: 89-year-old male presents to the ED today after being bitten on his right ring finger by his son's dog. The dog is up-to-date on his vaccinations. Patient is not up-to-date on his tetanus. He is on blood thinners and could not stop the bleeding. Otherwise he has good movement of his finger. No other associated signs or symptoms. Related Data Home Medications ?Medication ?Instructions ?Recorded ?Confirmed meclizine 12.5 mg tablet 12.5 mg PO BID PRN Dizziness 09/30/17 10/31/24 tamsulosin 0.4 mg capsule 0.4 mg PO DAILY prostate 10/31/24 cholecalciferol (vitamin D3) 50 2,000 unit PO DAILY Di et supplement 10/01/18 10/31/24 mcg (2,000 unit) capsule apixaban 2.5 mg tablet (Eliquis) 2.5 mg PO DIRECTED Blood Thinner 08/24/23 10/31/24 Previous Rx's ?Medication ?Instructions ?Recorded nitroglycerin 0.4 mg sublingual 0.4 mg sublingual Q5M PRN chest 02/11/24 tablet pain #20 tabs levofloxacin 750 mg tablet 750 mg PO DAILY 7 days #7 t abs 06/20/24 rosuvastatin 20 mg tablet See Rx Instructions .Route 0 07/26/24 .COMPLEX #90 tabs finasteride 5 mg tablet 5 mg PO DAILY #90 tabs 08/23 levothyroxine 50 mcg capsule 50 mcg PO DAILY thyroid # 90 caps 09/12/24 metoprolol succinate 25 mg See Rx Instructions .Route 10/12/24 tablet,extended release 24 hr .COMPLEX #30 tabs amoxicillin 875 mg-potassium 1 tab PO BID #20 tabs clavulanate 125 mg tablet furosemide 40 mg tablet See Rx Instructions .Route 0 12/15/24 .COMPLEX #30 tabs Allergies Allergy/AdvReac Type Severity Reaction Status Date / Time oxycodone (OXYCODONE) Allergy Unknown HALLUCINATI Verified 12/15/24 16:38 ONS acetaminophen (From Percocet) Allergy Hallucinati Verified 12/15/24 16:38 [facility] Disclaimer: The information contained in this section may have been updated after the patient was seen, as this information can be updated by other users. Medical History (Updated 12/15/24 @ 17:42 by Su Martin (ED), NURSE PRACTITIONER PER DIEM) Pacemaker History of ASCVD Bilateral low back pain with right-sided sciatica Rhinitis Renal insufficiency, mild Deep vein thrombosis (DVT) of left lower extremity Traumatic enucleation of right eye URI, acute Crepitus of right temporomandibular joint on opening of jaw Bilateral temporomandibular joint disorder Hearing loss Muscle cramps Pacemaker Arthropathy of knee Localized edema due to fluid overload CHF (congestive heart failure) Hyperlipidemia custodial current use of anticoagulant therapy History of urinary retention History of UTI Hyperlipemia Acquired hypothyroidism Hypertension Anticoagulant disorder Acute urinary retention Surgical History History of prostate surgery History of heart bypass surgery History of hernia repair History of cholecystectomy Family History Other Cancer Diabetes Hyperlipidemia Hypertension Social History Smoking Status: Former smoker tobacco type: cigarettes how long ago did patient quit smokin years ago alcohol intake: former substance use type: denies use current occupational status: other Travel in the last 8 weeks?: None household members: family housing: house current occupational exposures/hazards: No caffeine: Yes Have you lived/traveled outside US in past 30 days?: No Contact w/someone who lives/traveled outside US past 30 days?: No Exposure to someone with infectious disease in past 14 days?: No Do you have a fever (greater than 100.4 F or 38 C)?: No Have you tested positive for COVID-19?: No Exposed to someone with COVID-19 in past 14 days?: No Do you have a sore throat?: No Do you have a cough?: No Do you have any weakness?: No Do you have any diarrhea?: No Are you experiencing any unusual bleeding?: No Do you have any muscle aches/pain?: No Do you have any abdominal pain?: No Are you experiencing loss of taste or smell?: No Other Medical History Have you received the Flu Vaccine for this season: Yes Have you received the Pneumonia Vaccine: Yes ROS Obtained: Yes Systems reviewed as appropriate & no additional complaints except as documented Constitutional Constitutional: Reports as per HPI Physical Exam General General appearance: alert and in no apparent distress Head Head exam: normocephalic Eye Eye exam: Present PERRL and EOMI ENT ENT exam: Present normal oropharynx and mucous membranes moist Neck Neck exam: Present full ROM and trachea midline Respiratory Respiratory exam: Present normal lung sounds bilaterally Cardiovascular Cardiovascular exam: Present regular rate, normal rhythm, normal heart sounds, +S1 and +S2 Extremities Exam Extremities exam: Present normal inspection, full ROM, tenderness and normal capillary refill Neurological Exam Neurological exam: Present alert, oriented X3 and normal gait Skin Skin exam: Present warm, dry and erythema (Right hand ring finger laceration) Medical Decision Making Medical Records Screening: Per USPSTF and CDC recommendations, given the prevalence of disease in our region, it is our hospital?s policy to screen for HIV and viral Hepatitis for all patients aged 18 and over and those with ongoing risk factors. Caio Inquiry Pt receiving controlled substance: No Caio was queried for this patient: No Vital Signs: 12/15/24 16:34 12/15/24 17:51 Temperature 98 F 98.1 F Temperature Source Oral Pulse Rate 78 Pulse Rate [Right Brachial] 92 H Respiratory Rate 16 18 Blood Pressure 115/78 Blood Pressure [Left Arm] 121/72 Blood Pressure Mean [Left Arm] 88 Blood Pressure Source [Left Arm] Automatic Cuff Blood Pressure Position [Left Arm] Sitting 02 Sat by Pulse Oximetry 96 Oxygen Delivery Method Room Air Room Air Orders (Tests/Meds): ED MEDICATIONS Discontinued Medications Generic Name Dose Route Start Last Admin Trade Name Rachele PRN Reason Stop Dose Admin Lidocaine/Epinephrine 20 ml 12/15/24 16:48 12/15/24 17:00 Lidocaine 1% W/Epi 1:100,000 20ml Vial SQ 12/15/24 16:49 20 ml ONCE ONE Administration Tetanus/Reduced Diphtheria/Acell Pertussis 0.5 ml 12/15/24 16:48 12/15/24 16:59 Tet/Diphth/Pert-Adult 0.5ml Syringe IM 12/15/24 16:49 0.5 ml .ONCE ONE Administration Medical Decision Narrative: patient is a 89-year-old male presenting to the emergency department for evaluation of laceration from a dog bite on his right ring finger. Patient is hemodynamically stable and nontoxic-appearing upon arrival, afebrile. Differential diagnosis includes dog bite. Workup will be conducted with laceration repair and Tdap. Wound was loosely approximated with 3 sutures. Explained to patient that dog bite does not get tightly approximated with sutures as it has infection risk. Will place patient on Augmentin for infection. Patient is to keep clean with soap and water. If any signs or symptoms of infection arise please return to the ED or follow-up with PCP. Procedures Laceration Laceration 1: Site: finger Side (If applicable): right Size (cm): 2 Description: linear Depth: simple, single layer Local Anesthetic: lidocaine 1% Amount of anesthesia used (mL): 5 Pre-repair: wound explored and irrigated extensively Size (cm): 4-0 (3) Number of sutures: 3 Technique: simple, interrupted Critical Care Critical Care Time Critical Care Time: No
[2024-12-15 17:51] VITALS: BP 115/78; PULSE 78; RESP 18; TEMP 36.7; O2SAT 98
== END 2024-12-15 17:51 | disposition home or self-care (01) ==
PROVIDERS: Emergency Provider Emergency Medicine; PCP Family Medicine
DX: S61.254A Open bite of right ring finger without damage to nail, initial encounter (principal); W54.0XXA Bitten by dog, initial encounter
CPT/HCPCS: 12001; 90471; 90715; 99284; J2004

== ENCOUNTER 2024-12-19 14:52 | Outpatient (CLI) | payer MEDICARE, BC, SELFPAY ==
[2024-12-19 19:17] LABS: Hematocrit 37.3 % (42.0-52.0); Hemoglobin 12.2 g/dL (14.1-18.0); Immature Granulocytes % 0.4 %; Mean Corpuscular HGB Conc 32.7 g/dL (31.8-35.4); Mean Corpuscular Hemoglobin 30.4 pg (27.0-31.2); Mean Corpuscular Volume 93.0 fl (80-94); Nucleated Red Blood Cells % 0 %; Platelet Count 146 K/mm3 (142-424); Red Blood Count 4.01 M/mm3 (4.60-6.20); Red Cell Distribution Width-SD 46.9 fL; White Blood Count 7.3 K/mm3 (4.8-10.8)
== END 2024-12-19 23:59 | disposition home or self-care (01) ==
LOC: LAB.DROPOF 12-21 10:10
PROVIDERS: PCP Nurse Practitioner; Visit Provider Nurse Practitioner
DX: T14.8XXA Other injury of unspecified body region, initial encounter (principal)
CPT/HCPCS: 85025

== ENCOUNTER 2024-12-25 10:00 | Outpatient (CLI) | payer MEDICARE, BC, SELFPAY ==
--- OUTSIDE RECORDS SUMMARY | 2024-12-26 09:26 | XMS_ITS | Encounter Summary ---
Author Organization [place] [address] Care Team Providers Care Outpatient Physical Therapist Name Role Phone Alex Hobbs MD Primary Care Provider [phone] Riley Lara MD Unavailable Car Hobbs MD Primary Care Provider [phone] Oj Cowart MD Unavailable [phone] Encounter Details Date Type Department Care Team (Late st Contact Info) Description 05/10/2013 Orders Only [facility] [place] [address] [place] [address] Riley Lara MD [address] [place] [address] Social History Tobacco Use Types [...] Office Visit [facility] [address] [facility] [address] [place] [address] 05/24/2025 2:00 PM EST Office Visit [facility] [address] [facility] [address] [place] [address] Oj Cowart MD [address] [facility] [place] [address] documented as of this encounter Procedures Procedure Name Priority Date/Time Associated Diagnosis Comments PACEART REPORT Routine 05/10/2013 1:16 PM EST documented in this encounter Results * PACEART REPORT (05/10/2013 1:16 PM EST) Narrative [facility] - 05/10/2013 1:16 PM EST MVPR 60-130. Battery 11yrs. 3- high atrial rates. Last on 03/27/13 x 1 min 59 sec. Longest x 6 min 5 sec on 08/29/12. Pt takes ASA only. AF burden 0.1%. RV output decreased to 2.5v for safety margin. No malfunction. us Riley Lara MD [facility] C[facility] CATH ORDERABLES Poly l Result [facility] [address] [place] [address] documented in this encounter Visit Diagnoses Not on filedocumented in this encounter Care Teams Outpatient Physical Therapist Relationship Specialty Start Date End Date Alex Hobbs MD [address] [facility] [address] [place] [address] PCP - General 08/26/10 05/16/13 Car Hobbs MD [address] [facility] [address] [place] [address] PCP - General Family Medicine 05/17/13 Riley Lara MD [address] [place] [address] [place] [address] Physician Internal Medicine-Cardiovascular Disease 05/12/11 Oj Cowart MD [address] [place] [address] Consulting Physician Internal Medicine - Clinical Cardiac Electrophysiology 02/05/16 documented as of this encounter
--- OUTSIDE RECORDS SUMMARY | 2024-12-26 09:26 | XMS_ITS | Clinical Summary ---
Author Organization [facility] Address [address] [place] [address] Phone Care Team Providers Care Report Clerk Name Role Phone Riley Lara MD Unavailable Car Hobbs MD Primary Care Provider [phone] Oj Cowart MD Unavailable [phone] Allergies Active Allergy Reactions Criticality Noted Date Comments Favian Inhibitors 10/16/2015 Hyperkalemia Acetaminophen Other (See Comments) [...] Active fluticasone propionate (FLONASE) 50 mcg/actuation Nasl Marion, Suspension 1 Marion in each nostril daily. 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): S/P PPM implant Encounters Date Type Department Care Team Description 11/08/2024 Orders Only [facility] [address] [facility] [address] [place] [address] Oj Cowart MD Vector Remote Device 10/17/2024 Refill [facility] [address] [facility] [address] [place] [address] Michaela Roman, LIDNA Medication Refill from Last 3 Months Surgical [...] Office Visit [facility] [address] [facility] [address] [place] [address] 05/24/2025 2:00 PM EST Office Visit [facility] [address] [facility] [address] [place] [address] Oj Cowart MD [address] [facility] [place] [place] [address] Health Maintenance Due Date Last Done Comments Wellness Exam Medicare 1938 Pneumococcal Vaccine 50+ (1 of 2 - PCV) 1954 Zoster (1 of 2) 1954 RSV or 60+ (1 - 1-dose 75+ series) 2010 COVID-19 Vaccine (2024- season) 2024 03/09/2023, 04/27/2022, 10/27/2021, Additional history exists Influenza Vaccine (#1) 2024 , 01/28/2023, 01/23/2022, Additional history exists DTaP/TDaP/Td (2 - Td or Tdap) 09/10/2027 09/09/2017 Hepatitis B Vaccine Aged Out No longe r eligible based on patient's age to complete this topic Meningococcal B Vaccine Aged Out No l onger eligible based on patient's age to complete this topic Medical Devices Implanted Type Area Liner Replacer Device Identifier Shelf Expiration Date Model / Serial / Lot Crtd Dudley Xt Hf Quad Mri Df4 Surescan - [id number] Implanted:Qty: 1 on 11/06/2022 by Oj Cowart MD at [facility] PROTOTYPE MACHINIST-D ICD [employer]:CARDI AC MICROFILM DUPLICATING UNIT SUPERVISOR [id number] 03/16/2024 [id number] / [id number]^2002 / Lead Tachyarrhythmia Implantable Sprint Quattro Secure 55cm - [id number] Implanted:Qty: 1 on 01/20/2016 by Oj Cowart MD at [facility] Lead [employer]:OLGA RASHEEDS [id number] / [id number] / Lead Attain Performa 88cm - [id number] Implanted:Qty: 1 on 01/20/2016 by Oj Cowart MD at [facility] Lead [employer]:OLGA MARTINS [id number] / [id number] / Rt Eye Implant Envelope Tyrx Absb Antbtc Impl 2.9x3.3in Sgl-Garcia Foil [facility] - [id number] Implanted:Qty: 1 on 11/06/2022 by Oj Cowart MD at [facility] [employer]:PACBRAVO Connell SYS [id number] 07/25/2023 [id number] / / [id number] Explanted Type Area Liner Replacer Device Identifier Shelf Expiration Date Model / Serial / Lot Amplia Mri Quad Crtd [id number]-02/3/2016 Implanted:Qty: 1 on 01/20/2016 by Oj Cowart MD Explanted:(Quantit y not on file) Explanted:Qty: 1 on 11/06/2022 by Oj Cowart MD at [facility] ICD [employer] / [id number] / Pacemaker Adapta Dr Dual Chamber With At/Af Interventions Cardiac Compass Arrhythmia Monitoring And Mvp Mode - [id number] Implanted:Qty: 1 on 12/18/2011 at [facility] Explanted:Qty: 1 on 01/20/2016 at [facility] MED[employer]:PACING SYS ADDR01 / [id number] / Procedures Procedure Name Priority Date/Time Associated Diagnosis Comments CO INTERROGATION EVAL REMOTE </90 D /2/PATIENT PORTAL CONCIERGE LD DFB Routine 11/08/2024 12:00 AM EDT Vector Remote Device from Last 3 Months Results * VECTOR REMOTE DEVICE (11/08/2024 12:00 AM EDT) 11/08/2024 Narrative [facility] - 11/08/2024 12:00 AM EDT No significant episodes. NSVT: 47, avaialble EGMs c/w AF/RVR with PVCs and a ventricular couplet. V. Sensing Episodes: 1388, longest 1m:10s. Permanent AF. Patient on AC. Mode: VVIR. WOODS RIDER: 95%. Effective BiVP: 94%. Normal device function. Device Advisory. us Oj Cowart MD [facility] C[facility] CATH ORDERABLE S Final Result [facility] [address] [place] [address] from Last 3 Months Insurance MEDICARE [place] PART A AND B [place]ICARE [place] PART A AND B O Advance Directives For more information, please contact: [phone] * Full Code (Latest Code Status on File) Date Activated Date Inactivated Comments 02/20/2014 3:49 PM 02/24/2014 2:36 PM Care Teams Report Clerk Relationship Specialty Start Date End Date Car Hobbs MD [facility] [address] [place] [address] PCP - General Family Medicine 05/17/13 Riley Lara MD [address] [place] [address] [place] [address] Physician Internal Medicine-Cardiovascular Disease 05/12/11 Oj Cowart MD [address] [place] [address] [place] [address] Consulting Physician Internal Medicine - Clinical Cardiac Electrophysiology 02/05/16
--- OUTSIDE RECORDS SUMMARY | 2024-12-26 09:26 | XMS_ITS | Clinical Summary ---
Author Organization [facility] Address [address] [place] [address] Care Team Providers Care Technical Solution Architect Name Role Phone Car Hobbs MD Primary Care Provider [phone] Allergies Active Allergy Reactions Criticality Noted Date [...] 10/19/[address] Higgins - [facility] 5 mg, T,R,Sa,Sun 2.5 mg Active metoprolol [...] 10/19/2017 COVID-19 Vaccine (1 - 2023- season) 2024 INFLUENZA VACCINE 01/17/2025 Medical Devices Implanted Type Area Sample Body Builder Device Identifier Shelf Expiration Date Model / Serial / Lot Icd-01/20/2016 Implanted:2015 (Quantity not on file) ICD MEDTRONIC [id number] / [id number] / Description:implanted by Oj marcus, Insurance MEDICARE A & B [facility] Advance Directives Documents on File Type Date Recorded Patient Tip Banding Machine Operator Expl anation LIVING WILL - SCAN 10/19/2017 [...] Black Daughter Health Care Surrogate Care Teams Technical Solution Architect Relationship Specialty Start Date End Date Car Hobbs MD [address] [facility] [address] [facility] [address] [place] [address] PCP - General Family Medicine 10/19/17
--- OUTSIDE RECORDS SUMMARY | 2024-12-26 09:26 | XMS_ITS | Encounter Summary ---
Author Organization [place] [address] Care Team Providers Care Station Baggage Porter Name Role Phone Riley Lara MD Unavailable Car Hobbs MD Primary Care Provider [phone] Oj Cowart MD Unavailable [phone] Encounter Details Date Type Department Care Team (Late st Contact Info) Description 09/02/2015 Orders Only [facility] [place] [address] [place] [address] Riley Lara MD [address] [place] [address] Social History Tobacco Use Types [...] EST Office Visit [facility] [address] [place] [address] [place] [address] 05/24/2025 2:00 PM EST Office Visit [facility] [address] [place] [address] [place] [address] Oj Cowart MD [address] [place] [address] documented as of this encounter Procedures Procedure Name Priority Date/Time Associated Diagnosis Comments PACEART REPORT Routine 09/02/2015 5:58 PM EDT documented in this encounter Results * PACEART REPORT (09/02/2015 5:58 PM EDT) 09/02/2015 5:58 PM EDT Narrative [facility] - 09/02/2015 2:18 PM EDT MVPR 60/130 Battery 8.5 years. No malfunction noted. 8 atrial high rates; last 07/23/15; longest 6 min, 11 sec. Max 136 bpm. Pt on Warfarin. us Riley Lara MD [facility] CARDIAC CATH ORDERABLES Poly bianchi Result [facility] [address] [place] [address] documented in this encounter Visit Diagnoses Not on filedocumented in this encounter Care Teams Station Baggage Porter Relationship Specialty Start Date End Date Car Hobbs MD [address] [place] [address] PCP - General Family Medicine 05/17/13 Riley Lara MD [address] [place] [address] [place] [address] Physician Internal Medicine-Cardiovascular Disease 05/12/11 Oj Cowart MD [address] [place] [address] Consulting Physician Internal Medicine - Clinical Cardiac Electrophysiology 02/05/16 documented as of this encounter
--- OUTSIDE RECORDS SUMMARY | 2024-12-26 09:26 | XMS_ITS | Encounter Summary ---
Author Organization [facility] [place] [address] Care Team Providers Care Tiller Man Name Role Phone Alex Hobbs MD Primary Care Provider [phone] Riley Lara MD Unavailable Car Hobbs MD Primary Care Provider [phone] Oj Cowart MD Unavailable [phone] Encounter Details Date Type Department Care Team (Late st Contact Info) Description 02/06/2013 Orders Only [facility] [place] [address] [place] [address] Riley Lara MD [address] [place] [address] Social History Tobacco Use Types [...] Office Visit [facility] [address] [facility] [address] [place] [address] 05/24/2025 2:00 PM EST Office Visit [facility] [address] [facility] [address] [place] [address] Oj Cowart MD [address] [place] [address] [place] [address] documented as of this encounter Procedures Procedure Name Priority Date/Time Associated Diagnosis Comments PACEART REPORT Routine 02/06/2013 12:02 AM EDT documented in this encounter Results * PACEART REPORT (02/06/2013 12:02 AM EDT) 02/06/2013 12:0 2 AM EDT Narrative [facility] - 02/13/2013 9:04 PM EDT routine carelink. no episodes. us Riley Lara MD [facility] CARDIAC CATH ORDERABLES Poly l Result [facility] [address] [place] [address] documented in this encounter Visit Diagnoses Not on filedocumented in this encounter Care Teams Tiller Man Relationship Specialty [place] [address] [place] [address] [address] [place] [address] PCP - General 08/26/10 05/16/13 Car Hobbs MD [address] [place] [address] [address] [place] [address] PCP - General Family Medicine 05/17/13 Riley Lara MD [address] [place] [address] [place] [address] Physician Internal Medicine-Cardiovascular Disease 05/12/11 Oj Cowart MD [address] [place] [address] [place] [address] Consulting Physician Internal Medicine - Clinical Cardiac Electrophysiology 02/05/16 documented as of this encounter
--- OUTSIDE RECORDS SUMMARY | 2024-12-26 09:26 | XMS_ITS | Encounter Summary ---
Author Organization [place] [address] Care Team Providers Care Utility Agent Name Role Phone Alex Hobbs MD Primary Care Provider [phone] Riley Lara MD Unavailable Car Hobbs MD Primary Care Provider [phone] Oj Cowart MD Unavailable [phone] Encounter Details Date Type Department Care Team (Late st Contact Info) Description 06/13/2009 Orders Only [facility] [place] [address] [address] [place] [address] Riley Lara MD [address] [place] [address] Social History Tobacco Use Types Packs/Day [...] Visit [facility] [address] [place] [address] 05/24/2025 2:00 PM EST Office Visit [facility] 711 [facility] [address] [place] [address] Oj Cowart MD [address] [place] [address] [place] [address] documented as of this encounter [...] a practice prior to that practice using [employer] for Medical Records. Performing Provider: TONG us Riley Lara MD IMG VASCULAR ORDERABLES Final Re sult documented in this encounter Visit Diagnoses Not on filedocumented in this encounter Care Teams Utility Agent Relationship Specialty Start Date End Date Alex Hobbs MD [address] [place] [address] [address] [place] [phone] PCP - General 08/26/10 05/16/13 Car Hobbs MD [address] [place] [address] [address] [place] [address] PCP - General Family Medicine 05/17/13 Riley Lara MD [address] [place] [address] [place] [address] Physician Internal Medicine-Cardiovascular Disease 05/12/11 Oj Cowart MD [address] [place] [address] [place] [address] Consulting Physician Internal Medicine - Clinical Cardiac Electrophysiology 02/05/16 documented as of this encounter
--- OUTSIDE RECORDS SUMMARY | 2024-12-26 09:26 | XMS_ITS | Encounter Summary ---
Author Organization [place] [address] Care Team Providers Care Vacation Planner Name Role Phone Alex Hobbs MD Primary Care Provider [phone] Riley Lara MD Unavailable Car Hobbs MD Primary Care Provider [phone] Oj Cowart MD Unavailable [phone] Encounter Details Date Type Department Care Team (Late st Contact Info) Description 06/27/2009 Orders Only [facility] [place] [facility] [address] [place] [address] Katie Brown MD [address] [place] [id number] Social History Tobacco Use Types Packs/Day Years [...] Visit [facility] [facility] [address] [place] [address] 05/24/2025 2:00 PM EST Office Visit [facility] 7[address] [facility] [address] [place] [address] Oj Cowart MD [address] [place] [address] [place] [address] documented as of this encounter [...] a practice prior to that practice using [employer] for Medical Records. Performing Provider: OLMAN us Katie Hastings MD IMG ECHO ORDERABLES Poly l Result documented in this encounter Visit Diagnoses Not on filedocumented in this encounter Care Teams Vacation Planner Relationship Specialty Start Date End Date Alex Hobbs MD [address] [place] [address] [address] [place] [address] PCP - General 08/26/10 05/16/13 Car Hobbs MD 1210 [facility] [address] [place] [address] PCP - General Family Medicine 05/17/13 Riley Lara MD [address] [place] [address] [place] [address] Physician Internal Medicine-Cardiovascular Disease 05/12/11 Oj Cowart MD [address] [place] [address] [place] [address] Consulting Physician Internal Medicine - Clinical Cardiac Electrophysiology 02/05/16 documented as of this encounter
--- OUTSIDE RECORDS SUMMARY | 2024-12-26 09:26 | XMS_ITS | Encounter Summary ---
Author Organization [place] [address] Care Team Providers Care Package Car Driver Name Role Phone Riley Lara MD Unavailable Car Hobbs MD Primary Care Provider [phone] Oj Cowart MD Unavailable [phone] Encounter Details Date Type Department Care Team (Late st Contact Info) Description 01/20/2016 Orders Only [facility] 711 [facility] [address] [place] [address] Oj Cowart MD 711 [place] [address] Social History Tobacco Use Types [...] EST Office Visit [facility] [address] [place] [address] 05/24/2025 2:00 PM EST Office Visit [facility] [address] [place] [address] Oj Cowart MD [address] [place] [address] documented as of this encounter Procedures Procedure Name Priority Date/Time Associated Diagnosis Comments PACEART REPORT Routine 01/20/2016 7:15 PM EDT documented in this encounter Results * PACEART REPORT (01/20/2016 7:15 PM EDT) 01/20/2016 7:15 PM EDT Narrative [facility] - 01/20/2016 3:16 PM EDT implant report us Oj Cowart MD [facility] CARDIAC CATH ORDERABLE S Final Result Performing Organization Address City/State/[facility] Co de Phone Number [facility] 1 [place] [address] documented in this encounter Visit Diagnoses Not on filedocumented in this encounter Additional Health Concerns Assessment Noted Time A fall risk assessment has been complete d for the patient 12/24/2015 2:04 PM EDT documented as of this encounter Care Teams Package Car Driver Relationship Specialty Start Date End Date Car Hobbs MD [facility] [address] [facility] [address] PCP - General Family Medicine 05/17/13 Riley Lara MD [address] [place] [address] [place] [address] Physician Internal Medicine-Cardiovascular Disease 05/12/11 Oj Cowart MD [address] [place] [address] [place] [address] Consulting Physician Internal Medicine - Clinical Cardiac Electrophysiology 02/05/16 documented as of this encounter
--- OUTSIDE RECORDS SUMMARY | 2024-12-26 09:26 | XMS_ITS | Encounter Summary ---
Author Organization [place] [address] Care Team Providers Care Paper Machine Backtender Name Role Phone Alex Hobbs MD Primary Care Provider [phone] Riley Lara MD Unavailable Car Hobbs MD Primary Care Provider [phone] Oj Cowart MD Unavailable [phone] Encounter Details Date Type Department Care Team (Late st Contact Info) Description 07/16/2008 Orders Only [facility] [place] [facility] [address] [place] [address] Car Parker MD Social History [...] Office Visit [facility] [address] [facility] [address] [place] [address] 05/24/2025 2:00 PM EST Office Visit [facility] [address] [facility] [address] [place] [address] Oj Cowart MD 711 [place] [address] documented as of this encounter [...] a practice prior to that practice using [facility] [employer] for Medical Records. Performing Provider: IZZY us Car Parker MD IMG ECHO ORDERABLES Final Resul t documented in this encounter Visit Diagnoses Not on filedocumented in this encounter Care Teams Paper Machine Backtender Relationship Specialty Start Date End Date Alex Hobbs MD [address] [place] [address] [address] [place] [phone] PCP - General 08/26/10 05/16/13 Car Hobbs MD [facility] [address] [place] [address] PCP - General Family Medicine 05/17/13 Riley Lara MD [address] [place] [address] [place] [address] Physician Internal Medicine-Cardiovascular Disease 05/12/11 Oj Cowart MD [address] [place] [address] [place] [address] Consulting Physician Internal Medicine - Clinical Cardiac Electrophysiology 02/05/16 documented as of this encounter
--- OUTSIDE RECORDS SUMMARY | 2024-12-26 09:26 | XMS_ITS | Encounter Summary ---
Author Organization [place] [address] Care Team Providers Care Electronic Device Monitor Name Role Phone Riley Lara MD Unavailable Car Hobbs MD Primary Care Provider [phone] Oj Cowart MD Unavailable [phone] Encounter Details Date Type Department Care Team (Late st Contact Info) Description 05/03/2014 Orders Only [facility] [place] [facility] [address] [place] [address] iRley Lara MD 711 [place] [address] Social History Tobacco Use Types [...] EST Office Visit [facility] [address] [place] [address] [place] [address] 05/24/2025 2:00 PM EST Office Visit [facility] [address] [place] [address] [place] [address] Oj Cowart MD [address] [place] [address] documented as of this encounter Procedures Procedure Name Priority Date/Time Associated Diagnosis Comments PACEART REPORT Routine 05/03/2014 2:23 PM EST documented in this encounter Results * PACEART REPORT (05/03/2014 2:23 PM EST) 05/03/2014 2:[address] [facility] - 05/03/2014 9:35 AM EST MVPR 60-130 Battery 7 years. One high atrial rate x 3 min 27 sec on 09-28-13. AF burden 0.1%. Pt on Coumadin. High V threshold. Unipolar 1.75v@0.46ms. Polarity changed to unipolar for better threshold. No malfunction. us Riley Lara MD [facility] CARDIAC CATH ORDERABLES Poly l Result [facility] 1 [place] [address] documented in this encounter Visit Diagnoses Not on filedocumented in this encounter Care Teams Electronic Device Monitor Relationship Specialty Start Date End Date Car Hobbs MD 1210 [facility] [address] [place] [address] PCP - General Family Medicine 05/17/13 Riley Lara MD [address] [place] [address] [place] [address] Physician Internal Medicine-Cardiovascular Disease 05/12/11 Oj Cowart MD [address] [place] [address] [place] [address] Consulting Physician Internal Medicine - Clinical Cardiac Electrophysiology 02/05/16 documented as of this encounter
--- OUTSIDE RECORDS SUMMARY | 2024-12-26 09:26 | XMS_ITS | Encounter Summary ---
Author Organization [place] [address] Care Team Providers Care Fireproof Door Maker Name Role Phone Riley Lara MD Unavailable Car Hobbs MD Primary Care Provider [phone] Oj Cowart MD Unavailable [phone] Encounter Details Date Type Department Care Team (Late st Contact Info) Description 11/08/2024 Orders Only [facility] 711 [facility] [address] [place] [address] Oj Cowart MD 711 [place], [place] [id number] Vector Remote Device Social History Tobacco Use [...] EST Office Visit [facility] [address] [place] [address] [place] [address] 05/24/2025 2:00 PM EST Office Visit [facility] [address] [place] [address] [place] [address] Oj Cowart MD [address] [place] [address] documented as of this encounter Procedures Procedure Name Priority Date/Time Associated Diagnosis Comments AL INTERROGATION EVAL REMOTE </90 D 1/2/APICULTURE TEACHER LD DFB Routine 11/08/2024 12:00 AM EDT Vector Remote Device documented in this encounter Results * VECTOR REMOTE DEVICE (11/08/2024 12:00 AM EDT) 11/08/2024 Narrative [facility] - 11/08/2024 12:00 AM EDT No significant episodes. NSVT: 47, avaialble EGMs c/w AF/RVR with PVCs and a ventricular couplet. V. Sensing Episodes: 1388, longest 1m:10s. Permanent AF. Patient on AC. Mode: VVIR. IP LITIGATION ASSOCIATE: 95%. Effective BiVP: 94%. Normal device function. Device Advisory. us Oj Cowart MD [facility] CARDIAC CATH ORDERABLE S Final Result [facility] 1 [place], [place] [id number] documented in this encounter Visit Diagnoses Diagnosis Vector Remote Device documented in this encounter Additional Health Concerns Assessment Noted Time A fall risk assessment has been complete d for the patient 08/30/2023 12:54 PM EDT documented as of this encounter Care Teams Fireproof Door Maker Relationship Specialty Start Date End Date Car Hobbs MD [facility] [place] [address] [place] [address] PCP - General Family Medicine 05/17/13 Riley Lara MD [address] [place] [address] [place] [address] Physician Internal Medicine-Cardiovascular Disease 05/12/11 Oj Cowart MD [address] [place] [address] [place] [address] Consulting Physician Internal Medicine - Clinical Cardiac Electrophysiology 02/05/16 documented as of this encounter
== END 2024-12-25 23:59 ==
LOC: LAB.DROPOF 12-26 09:15
PROVIDERS: PCP Nurse Practitioner; Visit Provider Nurse Practitioner
DX: T14.8XXA Other injury of unspecified body region, initial encounter (principal); W54.0XXA Bitten by dog, initial encounter
CPT/HCPCS: 87070; 87205

== ENCOUNTER 2025-02-27 12:32 | Outpatient (CLI) | payer MEDICARE, BC, SELFPAY ==
[2025-02-27 15:59] LABS: Alanine Aminotransferase 17 U/L (12-78); Albumin Level 4.1 g/dl (3.5-5.0); Albumin/Globulin Ratio 1.4 (1.1-1.8); Alkaline Phosphatase 85 U/L (38-126); Anion Gap 11.1 mEq/L (5-15); Aspartate Amino Transferase 27 U/L (17-59); Bilirubin,Total 1.2 mg/dl (0.2-1.3); Blood Urea Nitrogen 17 mg/dl (9-20); Calcium 10.0 mg/dl (8.4-10.2); Carbon Dioxide 25 mmol/L (22.0-30.0); Chloride 105 mmol/L (98-107); Creatinine,Serum 1.00 mg/dl (0.66-1.25); Estimated Glomerular Filt Rate 70 ml/min (>60); GFR (African American) 85 ML/MIN (>60); Globulin 2.9 g/dL (1.3-3.2); Glucose 118 mg/dl (74-100); Potassium 4.1 mmoL/L (3.5-5.1); Sodium 137 mmol/L (136-145); Total Protein,Serum 7.0 g/dl (6.3-8.2)
[2025-02-27 16:28] LABS: Thyroid Stimulating Hormone 1.65 uIU/mL (0.465-4.68)
--- OUTSIDE RECORDS SUMMARY | 2025-02-28 13:54 | XMS_ITS | Encounter Summary ---
Author Organization [place] [address] Care Team Providers Care Cad Manager Name Role Phone Alex Hobbs MD Primary Care Provider [phone] Riley Lara MD Unavailable Car Hobbs MD Primary Care Provider [phone] Oj Cowart MD Unavailable [phone] Encounter Details Date Type Department Care Team (Late st Contact Info) Description 02/06/2013 Orders Only [facility] [place] [facility] [address] [place] [address] Riley Lara MD 711 [place] [address] Social History Tobacco Use Types [...] Office Visit [facility] 711 [facility] [address] [place] [address] 05/24/2025 2:00 PM EST Office Visit [facility] [address] [facility] [address] [place] [address] Oj Cowart MD [address] [place] [address] [place] [address] documented as of this encounter Procedures Procedure Name Priority Date/Time Associated Diagnosis Comments PACEART REPORT Routine 02/06/2013 12:02 AM EDT documented in this encounter Results * PACEART REPORT (02/06/2013 12:02 AM EDT) 02/06/2013 12:0 2 AM EDT Narrative [facility] - 02/13/2013 9:04 PM EDT routine carelink. no episodes. us Riley Lara MD [facility] CARDIAC CATH ORDERABLES Poly l Result [facility] 1 [place] [address] documented in this encounter Visit Diagnoses Not on filedocumented in this encounter Care Teams Cad Manager Relationship Specialty [place] [address] [place] [address] [address] [place] [address] PCP - General 08/26/10 05/16/13 Car Hobbs MD [address] [place] [address] [address] [place] [address] PCP - General Family Medicine 05/17/13 Riley Lara MD [address] [place] [address] [place] [address] Physician Internal Medicine-Cardiovascular Disease 05/12/11 Oj Cowart MD [address] [place] [address] [place] [address] Consulting Physician Internal Medicine - Clinical Cardiac Electrophysiology 02/05/16 documented as of this encounter
--- OUTSIDE RECORDS SUMMARY | 2025-02-28 13:54 | XMS_ITS | Encounter Summary ---
Author Organization [place] [address] Care Team Providers Care Rn Labor And Delivery Name Role Phone Alex Hobbs MD Primary Care Provider [phone] Riley Lara MD Unavailable Car Hobbs MD Primary Care Provider [phone] Oj Cowart MD Unavailable [phone] Encounter Details Date Type Department Care Team (Late st Contact Info) Description 05/10/2013 Orders Only [facility] [place] [address] [place] [address] Riley Lara MD 711 [place] [address] Social History Tobacco Use Types [...] Visit [facility] 711 [facility] [address] [place] [address] 05/24/2025 2:00 PM EST Office Visit [facility] [address] [facility] [address] [place] [address] Oj Cowart MD [address] [facility] [place] [address] documented as of this encounter Procedures Procedure Name Priority Date/Time Associated Diagnosis Comments PACEART REPORT Routine 05/10/2013 1:16 PM EST documented in this encounter Results * PACEART REPORT (05/10/2013 1:16 PM EST) Narrative [facility] - 05/10/2013 1:16 PM EST MVPR 60-130. Battery 11yrs. 3- high atrial rates. Last on 03/27/13 x 1 min 59 sec. Longest x 6 min 5 sec on 08/29/12. Pt takes ASA only. AF burden 0.1%. RV output decreased to 2.5v for safety margin. No malfunction. us Riley Lara MD [facility] CARDIAC CATH ORDERABLES Poly l Result [facility] 1 [place] [address] documented in this encounter Visit Diagnoses Not on filedocumented in this encounter Care Teams Rn Labor And Delivery Relationship Specialty Start Date End Date Alex Hobbs MD 2101 [facility] [address] [place] [address] PCP - General 08/26/10 05/16/13 Car Hobbs MD 1210 [facility] [address] [place] [address] PCP - General Family Medicine 05/17/13 Riley Lara MD [address] [place] [address] [place] [address] Physician Internal Medicine-Cardiovascular Disease 05/12/11 Oj Cowart MD [address] [place] [address] Consulting Physician Internal Medicine - Clinical Cardiac Electrophysiology 02/05/16 documented as of this encounter
--- OUTSIDE RECORDS SUMMARY | 2025-02-28 13:54 | XMS_ITS | Encounter Summary ---
Author Organization [place] [address] Care Team Providers Care Waterproof Bag Cutting Machine Operator Name Role Phone Riley Lara MD Unavailable Car Hobbs MD Primary Care Provider [phone] Oj Cowart MD Unavailable [phone] Reason for Visit * Reason Onset Date Comments Results 01/08/2025 remote device tr ansmission Encounter Details Date Type Department Care Team (Late st Contact Info) Description 01/08/2025 Telephone [facility] 711 [facility] [address] [place] [address] Angela Stout MA Results (remote device transmission) Social History Tobacco Use Types Packs/Day Years [...] Marcello Ferro RN documented in this encounter Miscellaneous Notes * Telephone Encounter - Angela Stout MA - 01/08/2025 10:05 AM EDT I contacted pt re: Vector report received: No significant episodes. NSVT: 92, available EGMs c/w AF/RVR and NSVT lasting <5s. V. Sensing Episodes: 945, longest 19s. Permanent AF. Patient on AC. Mode: VVIR. MANGA ARTIST: 93%. Effective BiVP: 92%. Battery Nearing MEGAN with an estimated 5 month longevity. Normal device function. Device Advisory. I s/w pt and messaged Vector to begin monthly remotes. He verbalized understanding. documented in this encounter Plan of Treatment Upcoming Encounters Date Type Department Care Team (Late st Contact Info) Description 05/24/2025 1:30 PM EST Office Visit [facility] 711 [facility] [address] [place] [address] 05/24/2025 2:00 PM EST Office Visit [facility] [address] [place] [address] [address] [place] [address] Oj Cowart MD [address] [facility] [place], [place] [address] documented as of this encounter Visit Diagnoses Not on filedocumented in this encounter Additional Health Concerns Assessment Noted Time A fall risk assessment has been complete d for the patient 08/30/2023 12:54 PM EDT documented as of this encounter Care Teams Waterproof Bag Cutting Machine Operator Relationship Specialty Start Date End Date Car Hobbs MD [facility] [address] [facility] [place] [address] PCP - General Family Medicine 05/17/13 Riley Lara MD [address] [place] [address] [place] [address] Physician Internal Medicine-Cardiovascular Disease 05/12/11 Oj Cowart MD [address] [place] [address] [place] [address] Consulting Physician Internal Medicine - Clinical Cardiac Electrophysiology 02/05/16 documented as of this encounter
--- OUTSIDE RECORDS SUMMARY | 2025-02-28 13:54 | XMS_ITS | Clinical Summary ---
Author Organization [facility] Address [address] [place] [id number] Care Team Providers Care Regulatory Affairs Spec Name Role Phone Car Hobbs MD Primary Care Provider [phone] Allergies Active Allergy Reactions Criticality Noted Date [...] 10/19/[address] Higgins - [facility] 5 mg, T,R,Sa,Sun 2.5 mg Active metoprolol [...] 1-dose 75+ series) 1 ANNUAL PHYSICAL 10/19/2017 INFLUENZA VACCINE 11/17/2024 COVID-19 Vaccine ( - season) 2024 Medical Devices Implanted Type Area Sanitation Worker Cleaning Machinery Device Identifier Shelf Expiration Date Model / Serial / Lot Icd-01/20/2016 Implanted:2015 (Quantity not on file) ICD MEDTRONIC [id number] / [id number] / Description:implanted by Oj marcus, Insurance MEDICARE A & B [facility] Advance Directives Documents on File Type Date Recorded Patient Telecommunications Technician Expl anation LIVING WILL - SCAN 10/19/2017 [...] Black Daughter Health Care Surrogate Care Teams Regulatory Affairs Spec Relationship Specialty Start Date End Date Car Hobbs MD 1210 [facility] [address] [facility] 2 [place] [address] PCP - General Family Medicine 10/19/17
--- OUTSIDE RECORDS SUMMARY | 2025-02-28 13:54 | XMS_ITS | Encounter Summary ---
Author Organization [place] [address] Care Team Providers Care E/M Engineer Name Role Phone Alex Hobbs MD Primary Care Provider [phone] Riley Lara MD Unavailable Car Hobbs MD Primary Care Provider [phone] Oj Cowart MD Unavailable [phone] Encounter Details Date Type Department Care Team (Late st Contact Info) Description 07/16/2008 Orders Only [facility] [place] [address] [place] [address] Car Parker MD Social History [...] Edg 711 [facility] [address] [place] [address] 05/24/2025 2:00 PM EST Office Visit [facility] 711 [facility] [address] [place] [address] Oj Cowart MD 711 [place] [address] documented as of this encounter [...] a practice prior to that practice using [facility] [employer] for Medical Records. Performing Provider: IZZY us Car Parker MD IMG ECHO ORDERABLES Final Resul t documented in this encounter Visit Diagnoses Not on filedocumented in this encounter Care Teams E/M Engineer Relationship Specialty Start Date End Date Alex Hobbs MD [address] [place] [address] [address] [place] [address] PCP - General 08/26/10 05/16/13 Car Hobbs MD [facility] [address] [place] [address] PCP - General Family Medicine 05/17/13 Riley Lara MD [address] [place] [address] [place] [address] Physician Internal Medicine-Cardiovascular Disease 05/12/11 Oj Cowart MD [address] [place] [address] [place] [address] Consulting Physician Internal Medicine - Clinical Cardiac Electrophysiology 02/05/16 documented as of this encounter
--- OUTSIDE RECORDS SUMMARY | 2025-02-28 13:54 | XMS_ITS | Encounter Summary ---
Author Organization [place] [address] Care Team Providers Care Police Patrol Lieutenant Name Role Phone Alex Hobbs MD Primary Care Provider [phone] Riley Lara MD Unavailable Car Hobbs MD Primary Care Provider [phone] Oj Cowart MD Unavailable [phone] Encounter Details Date Type Department Care Team (Late st Contact Info) Description 06/13/2009 Orders Only [facility] [place] [address] [place] [address] Riley Lara MD [address] [place] [address] Social History Tobacco Use Types Packs/Day [...] Edg 711 [facility] [address] [place] [address] 05/24/2025 2:00 PM EST Office Visit [facility] 711 [facility] [address] [place] [address] Oj Cowart MD [address] [place] [address] [place] [address] documented as of this encounter [...] a practice prior to that practice using [employer] for Medical Records. Performing Provider: TONG us Riley Lara MD IMG VASCULAR ORDERABLES Final Re sult documented in this encounter Visit Diagnoses Not on filedocumented in this encounter Care Teams Police Patrol Lieutenant Relationship Specialty Start Date End Date Alex Hobbs MD [address] [place] [address] [address] [place] [phone] PCP - General 08/26/10 05/16/13 Car Hobbs MD [address] [place] [address] [address] [place] [address] PCP - General Family Medicine 05/17/13 Riley Lara MD [address] [place] [address] [place] [address] Physician Internal Medicine-Cardiovascular Disease 05/12/11 Oj Cowart MD [address] [place] [address] [place] [address] Consulting Physician Internal Medicine - Clinical Cardiac Electrophysiology 02/05/16 documented as of this encounter
--- OUTSIDE RECORDS SUMMARY | 2025-02-28 13:54 | XMS_ITS | Encounter Summary ---
Author Organization [place] [address] Care Team Providers Care Air Conditioning Manager Name Role Phone Riley Lara MD Unavailable Car Hobbs MD Primary Care Provider [phone] Oj Cowart MD Unavailable [phone] Reason for Visit * Reason Onset Date Comments Results 02/07/2025 remote device tr ansmission Encounter Details Date Type Department Care Team (Late st Contact Info) Description 02/07/2025 Telephone [facility] 711 [facility] [address] [place] [address] Angela Stout MA Results (remote [...] of Assessment Author Yes 02/24/2014 8:22 AM Dionne Ferro RN * Is the person blind or does he/she have serious difficulty seeing even when wearing glasses? Answer Date of Assessment Author No 02/24/2014 8:22 AM Marcello Ferro RN * Does this person have serious difficulty walking or climbing stairs? Answer Date of Assessment Author No 02/24/2014 8:22 AM Marcello Ferro, ROD * Does this person have difficulty dressing or bathing? Answer Date of Assessment Author No 02/24/2014 8:22 AM Dionne Ferro RN * Because of a physical, [...] Telephone Encounter - Angela Stout MA - 02/07/2025 1:55 PM EDT I attempted to contact pt re: Vector report received: NSVT: 3 c/w AF/RVR and NSVT longest lasting 10s. V. Sensing Episodes: 330, longest 13s. Permanent AF. Patient on AC. Mode: VVIR. BATCH TANK CONTROLLER: 96%. Effective BiVP: 94%. Battery Nearing MEGAN with an estimated 5 month longevity. Device Advisory. Monthly battery checks. I LMVM relaying battery estimate and that we would contact him next month with an updated report. documented in this encounter Plan of Treatment Upcoming Encounters Date Type Department Care Team (Late st Contact Info) Description 05/24/2025 1:30 PM EST Office Visit [facility] 711 [facility] [address] [place] [address] 05/24/2025 2:00 PM EST Office Visit [facility] 7[address] [facility] [address] [place] [address] Oj Cowart MD [address] [place] [address] documented as of this encounter Visit Diagnoses Not on filedocumented in this encounter Additional Health Concerns Assessment Noted Time A fall risk assessment has been complete d for the patient 08/30/2023 12:54 PM EDT documented as of this encounter Care Teams Air Conditioning Manager Relationship Specialty Start Date End Date Car Hobbs MD 1210 [facility] [address] [place] [address] PCP - General Family Medicine 05/17/13 Riley Lara MD [address] [place] [address] [place] [address] Physician Internal Medicine-Cardiovascular Disease 05/12/11 Oj Cowart MD [address] [place] [address] [place] [address] Consulting Physician Internal Medicine - Clinical Cardiac Electrophysiology 02/05/16 documented as of this encounter
--- OUTSIDE RECORDS SUMMARY | 2025-02-28 13:54 | XMS_ITS | Encounter Summary ---
Author Organization [place] [address] Care Team Providers Care Calender Let Off Helper Name Role Phone Riley Lara MD Unavailable Car Hobbs MD Primary Care Provider [phone] Oj Cowart MD Unavailable [phone] Encounter Details Date Type Department Care Team (Late st Contact Info) Description 02/07/2025 Orders Only [facility] 711 [facility] [address] [place] [address] Oj Cowart MD 711 [place], [place] [id number] Vector Remote Device Social History Tobacco Use [...] EST Office Visit [facility] [address] [place] [address] [place] [phone] 05/24/2025 2:00 PM EST Office Visit [facility] [address] [place] [address] [place] [address] Oj Cowart MD [address] [place] [address] documented as of this encounter Procedures Procedure Name Priority Date/Time Associated Diagnosis Comments SC INTERROGATION EVAL REMOTE </90 D 1/2/SEX THERAPIST LD DFB Routine 02/07/2025 Vector Remote Device documented in this encounter Results * VECTOR REMOTE DEVICE (02/07/2025) 02/07/[address] [facility] - 02/07/2025 NSVT: 3 c/w AF/RVR and NSVT longest lasting 10s. V. Sensing Episodes: 330, longest 13s. Permanent AF. Patient on AC. Mode: VVIR. SOFTWARE QUALITY SPECIALIST: 96%. Effective BiVP: 94%. Battery Nearing MEGAN with an estimated 5 month longevity. Device Advisory. Monthly battery checks. ADDENDUM: LMVM--kls us Oj Cowart MD [facility] CARDIAC CATH ORDERABLE S Final Result [facility] 1 [place] [address] documented in this encounter Visit Diagnoses Diagnosis Vector Remote Device documented in this encounter Additional Health Concerns Assessment Noted Time A fall risk assessment has been complete d for the patient 08/30/2023 12:54 PM EDT documented as of this encounter Care Teams Calender Let Off Helper Relationship Specialty Start Date End Date Car Hobbs MD 1210 [facility] [address] [place] [address] PCP - General Family Medicine 05/17/13 Riley Lara MD [address] [place] [address] [place] [address] Physician Internal Medicine-Cardiovascular Disease 05/12/11 Oj Cowart MD [address] [place] [address] [place] [address] Consulting Physician Internal Medicine - Clinical Cardiac Electrophysiology 02/05/16 documented as of this encounter
--- OUTSIDE RECORDS SUMMARY | 2025-02-28 13:54 | XMS_ITS | Encounter Summary ---
Author Organization [place] [address] Care Team Providers Care Clinical Manager Name Role Phone Riley Lara MD Unavailable Car Hobbs MD Primary Care Provider [phone] Oj Cowart MD Unavailable [phone] Encounter Details Date Type Department Care Team (Late st Contact Info) Description 05/03/2014 Orders Only [facility] [place] [address] [place] [address] Riley Lara MD 711 [place] [address] Social History Tobacco Use Types [...] EST Office Visit [facility] [address] [place] [address] [place] [phone] 05/24/2025 2:00 PM EST Office Visit [facility] [address] [place] [address] [place] [address] Oj Cowart MD [address] [place] [address] documented as of this encounter Procedures Procedure Name Priority Date/Time Associated Diagnosis Comments PACEART REPORT Routine 05/03/2014 2:23 PM EST documented in this encounter Results * PACEART REPORT (05/03/2014 2:23 PM EST) 05/03/2014 2:23 PM EST Narrative [facility] - 05/03/2014 9:35 AM EST MVPR 60-130 Battery 7 years. One high atrial rate x 3 min 27 sec on 09-28-13. AF burden 0.1%. Pt on Coumadin. High V threshold. Unipolar 1.75v@0.46ms. Polarity changed to unipolar for better threshold. No malfunction. us Riley Lara MD [facility] CARDIAC CATH ORDERABLES Poly l Result [facility] 1 [place] [address] documented in this encounter Visit Diagnoses Not on filedocumented in this encounter Care Teams Clinical Manager Relationship Specialty Start Date End Date Car Hobbs MD 1210 [facility] [address] [place] [address] PCP - General Family Medicine 05/17/13 Riley Lara MD [address] [place] [address] [place] [address] Physician Internal Medicine-Cardiovascular Disease 05/12/11 Oj Cowart MD [address] [place] [address] [place] [address] Consulting Physician Internal Medicine - Clinical Cardiac Electrophysiology 02/05/16 documented as of this encounter
--- OUTSIDE RECORDS SUMMARY | 2025-02-28 13:54 | XMS_ITS | Encounter Summary ---
Author Organization [place] [address] Care Team Providers Care Patient Care Name Role Phone Riley Lara MD Unavailable Car Hobbs MD Primary Care Provider [phone] Oj Cowart MD Unavailable [phone] Encounter Details Date Type Department Care Team (Late st Contact Info) Description 09/02/2015 Orders Only [facility] [place] [facility] [address] [place] [address] Riley Lara MD 711 [place] [address] Social History Tobacco Use Types [...] EST Office Visit [facility] [address] [place] [address] [place] [phone] 05/24/2025 2:00 PM EST Office Visit [facility] [address] [place] [address] [place] [address] Oj Cowart MD [address] [place] [address] documented as of this encounter Procedures Procedure Name Priority Date/Time Associated Diagnosis Comments PACEART REPORT Routine 09/02/2015 5:58 PM EDT documented in this encounter Results * PACEART REPORT (09/02/2015 5:58 PM EDT) 09/02/2015 5:58 PM EDT Narrative [facility] - 09/02/2015 2:18 PM EDT MVPR 60/130 Battery 8.5 years. No malfunction noted. 8 atrial high rates; last 07/23/15; longest 6 min, 11 sec. Max 136 bpm. Pt on Warfarin. Riley Lara MD [facility] CARDIAC CATH ORDERABLES Poly bianchi Result [facility] 1 [place] [address] documented in this encounter Visit Diagnoses Not on filedocumented in this encounter Care Teams Patient Care Relationship Specialty Start Date End Date Car Hobbs MD [facility]10 [facility] [address] [place] [address] PCP - General Family Medicine 05/17/13 Riley Lara MD [address] [place] [address] [place] [address] Physician Internal Medicine-Cardiovascular Disease 05/12/11 Oj Cowart MD [address] [place] [address] Consulting Physician Internal Medicine - Clinical Cardiac Electrophysiology 02/05/16 documented as of this encounter
--- OUTSIDE RECORDS SUMMARY | 2025-02-28 13:54 | XMS_ITS | Encounter Summary ---
Author Organization [place] [address] Care Team Providers Care Grain Blender Name Role Phone Riley Lara MD Unavailable Car Hobbs MD Primary Care Provider [phone] Oj Cowart MD Unavailable [phone] Encounter Details Date Type Department Care Team (Late st Contact Info) Description 01/20/2016 Orders Only [facility] 711 [facility] [address] [place] [address] Oj Cowart MD 711 [place] [address] Social History Tobacco Use Types [...] EST Office Visit [facility] [address] [place] [phone] 05/24/2025 2:00 PM EST Office Visit [facility] [address] [place] [phone] Oj Cowart MD [address] [place] [address] documented as of this encounter Procedures Procedure Name Priority Date/Time Associated Diagnosis Comments PACEART REPORT Routine 01/20/2016 7:15 PM EDT documented in this encounter Results * PACEART REPORT (01/20/2016 7:15 PM EDT) 01/20/2016 7:15 PM EDT Narrative [facility] - 01/20/2016 3:16 PM EDT implant report us Oj Cowart MD [facility] CARDIAC CATH ORDERABLE S Final Result Performing Organization Address City/State/[facility] Co de Phone Number [facility] 1 [place] [address] documented in this encounter Visit Diagnoses Not on filedocumented in this encounter Additional Health Concerns Assessment Noted Time A fall risk assessment has been complete d for the patient 12/24/2015 2:04 PM EDT documented as of this encounter Care Teams Grain Blender Relationship Specialty Start Date End Date Car Hobbs MD [facility] [address] [facility] [place] [address] PCP - General Family Medicine 05/17/13 Riley Lara MD [address] [place] [address] [place] [address] Physician Internal Medicine-Cardiovascular Disease 05/12/11 Oj Cowart MD [address] [place] [address] [place] [address] Consulting Physician Internal Medicine - Clinical Cardiac Electrophysiology 02/05/16 documented as of this encounter
--- OUTSIDE RECORDS SUMMARY | 2025-02-28 13:54 | XMS_ITS | Encounter Summary ---
Author Organization [place] [address] Care Team Providers Care Rug Hooker Name Role Phone Alex Hobbs MD Primary Care Provider [phone] Riley Lara MD Unavailable Car Hobbs MD Primary Care Provider [phone] Oj Cowart MD Unavailable [phone] Encounter Details Date Type Department Care Team (Late st Contact Info) Description 06/27/2009 Orders Only [facility] [place] [address] [place] [address] Katie Brown MD [address] [place] [id number] Social History Tobacco Use Types Packs/Day Years [...] Visit [facility] 711 [facility] [address] [place] [address] 05/24/2025 2:00 PM EST Office Visit [facility] 711 [facility] [address] [place] [address] Oj Cowart MD [address] [place] [address] [place] [address] documented as of this encounter [...] a practice prior to that practice using [employer] for Medical Records. Performing Provider: OLMAN us Katie Hastings MD IMG ECHO ORDERABLES Poly l Result documented in this encounter Visit Diagnoses Not on filedocumented in this encounter Care Teams Rug Hooker Relationship Specialty Start Date End Date Alex Hobbs MD [address] [place] [address] [address] [place] [phone] PCP - General 08/26/10 05/16/13 Car Hobbs MD 1210 [facility] [address] [place] [address] PCP - General Family Medicine 05/17/13 Riley Lara MD [address] [place] [address] [place] [address] Physician Internal Medicine-Cardiovascular Disease 05/12/11 Oj Cowart MD [address] [place] [address] [place] [address] Consulting Physician Internal Medicine - Clinical Cardiac Electrophysiology 02/05/16 documented as of this encounter
--- OUTSIDE RECORDS SUMMARY | 2025-02-28 13:54 | XMS_ITS | Encounter Summary ---
Author Organization [place] [address] Care Team Providers Care Production Manager Name Role Phone Riley Lara MD Unavailable Car Hobbs MD Primary Care Provider [phone] Oj Cowart MD Unavailable [phone] Encounter Details Date Type Department Care Team (Late st Contact Info) Description 01/07/2025 Orders Only [facility] 711 [facility] [address] [place] [address] Oj Cowart MD 711 [place], [place] [id number] Vector Remote Device Social History Tobacco Use [...] EST Office Visit [facility] [address] [place] [address] [place] [phone] 05/24/2025 2:00 PM EST Office Visit [facility] [address] [place] [address] [place] [phone] Oj Cowart MD [address] [place] [address] documented as of this encounter Procedures Procedure Name Priority Date/Time Associated Diagnosis Comments VECTOR REMOTE DEVICE Routine 01/07/2025 12:00 AM EDT Vector Remote Device documented in this encounter Results * VECTOR REMOTE DEVICE (01/07/2025 12:00 AM EDT) 01/07/[address] [facility] - 01/07/2025 12:00 AM EDT No significant episodes. NSVT: 92, available EGMs c/w AF/RVR and NSVT lasting <5s. V. Sensing Episodes: 945, longest 19s. Permanent AF. Patient on AC. Mode: VVIR. SUPERVISOR CIGAR PROCESSING: 93%. Effective BiVP: 92%. Battery Nearing MEGAN with an estimated 5 month longevity. Normal device function. Device Advisory. ADDENDUM: I s/w pt and messaged Vector to begin monthly remotes--kls us Oj Cowart MD [facility] CARDIAC CATH ORDERABLE S Final Result [facility] 1 [place] [address] documented in this encounter Visit Diagnoses Diagnosis Vector Remote Device documented in this encounter Additional Health Concerns Assessment Noted Time A fall risk assessment has been complete d for the patient 08/30/2023 12:54 PM EDT documented as of this encounter Care Teams Production Manager Relationship Specialty Start Date End Date Car Hobbs MD [facility] [address] [place] [address] PCP - General Family Medicine 05/17/13 Riley Lara MD [address] [place] [address] Physician Internal Medicine-Cardiovascular Disease 05/12/11 Oj Cowart MD [address] [place] [address] Consulting Physician Internal Medicine - Clinical Cardiac Electrophysiology 02/05/16 documented as of this encounter
--- OUTSIDE RECORDS SUMMARY | 2025-02-28 13:54 | XMS_ITS | Clinical Summary ---
Author Organization [facility] Address [address] [place] [address] Phone Care Team Providers Care Upholstery Trimmer Name Role Phone Riley Lara MD Unavailable Car Hobbs MD Primary Care Provider [phone] Oj Cowart MD Unavailable [phone] Allergies Active Allergy Reactions Criticality Noted Date [...] Active fluticasone propionate (FLONASE) 50 mcg/actuation Nasl Wilsall, Suspension 1 Wilsall in each nostril daily. 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 Encounters Date Type Department Care Team Description 02/07/2025 Orders Only [facility] [address] [facility] [address] [place] [address] Oj Cowart MD Vector Remote Device 02/07/2025 Telephone [facility] [address] [facility] [address] [place] [address] Angela Stout MA Results (remote device transmission) 02/07/2025 Orders Only [facility] [address] [facility] [address] [place] [address] Oj Cowart MD Vector Remote Device 01/08/2025 Telephone [facility] [address] [facility] [address] [place] [address] Angela Stout MA Results (remote device transmission) 01/07/2025 Orders Only [facility] [address] [facility] [address] [place] [address] Oj Cowart MD Vector Remote Device from Last 3 Months Surgical History Surgery [...] Office Visit [facility] [address] [facility] [address] [place] [address] 05/24/2025 2:00 PM EST Office Visit [facility] [address] [facility] [address] [place] [address] Oj Cowart MD [address] [place] [address] Health Maintenance Due Date Last Done Comments Wellness Exam Medicare 1938 Pneumococcal Vaccine 50+ (1 of 2 - PCV) 1954 Zoster (1 of 2) 1954 RSV or 60+ (1 - 1-dose 75+ series) 2010 COVID-19 Vaccine ( season) 2024 03/09/2023, 04/27/2022, 10/27/2021, Additional history [...] this topic Medical Devices Implanted Type Area Looper Fixer Device Identifier Shelf Expiration Date Model / Serial / Lot Crtd [place] Xt Hf Quad Mri Df4 Surescan - [id number] Implanted:Qty: 1 on 11/06/2022 by Oj Cowart MD at [facility] ENVIRONMENTAL PROTECTION FORESTER-D ICD [employer]:CARDI AC SENIOR LEAD JAVA DEVELOPER [id number] 03/16/2024 [id number] / [id number]^2002 / Lead Tachyarrhythmia Implantable Sprint Quattro Secure 55cm - [id number] Implanted:Qty: 1 on 01/20/2016 by Oj Cowart MD at [facility] Lead [employer]:OLGA Connell SYS 6935M-55 / [id number] / Lead Attain Performa 88cm - [id number] Implanted:Qty: 1 on 01/20/2016 by Oj Cowart MD at [facility] Lead [employer]:PACBRAVO Connell SYS 4598-88 / [id number] / Rt Eye Implant Envelope Tyrx Absb Antbtc Impl 2.9x3.3in Sgl-Garcia Foil [facility] - [id number] Implanted:Qty: 1 on 11/06/2022 by Oj Cowart MD at [facility] [employer]:OLGA Connell SYS [id number] 07/25/2023 [id number] / / [id number] Explanted Type Area Looper Fixer Device Identifier Shelf Expiration Date Model / Serial / Lot Amplia Mri Quad Crtd [id number]-99/3/2016 Implanted:Qty: 1 on 01/20/2016 by Oj Cowart MD Explanted:(Quantit y not on file) Explanted:Qty: 1 on 11/06/2022 by Oj Cowart MD at [facility] ICD [employer] / [id number] / Pacemaker Adapta Dr Dual Chamber With At/Af Interventions Cardiac Compass Arrhythmia Monitoring And Mvp Mode - [id number] Implanted:Qty: 1 on 12/18/2011 at [facility] Explanted:Qty: 1 on 01/20/2016 at [facility] [employer]:PACING SYS ADDR01 / [id number] / Procedures Procedure Name Priority Date/Time Associated Diagnosis Comments [place] INTERROGATION EVAL REMOTE </90 D 1/2/ARCHITECT LD DFB Routine 02/07/2025 Vector Remote Device [place] REM INTERROG ICPMS <30 D PHYS/QHP Routine 02/07/2025 Vector Remote Device VECTOR REMOTE DEVICE Routine 01/07/2025 12:00 AM EDT Vector Remote Device from Last 3 Months Results * VECTOR REMOTE HEART FAILURE DEVICE (02/07/2025) 02/07/2025 Narrative [facility] - 02/07/2025 Stable trend. us Oj Cowart MD [facility] CARDIAC CATH ORDERABLE S Final Result Performing Organization Address [facility] de Phone Number [facility] [address] [place] [address] * VECTOR REMOTE DEVICE (02/07/2025) Only the most recent of2 resultswithin the time period is included. 02/07/2025 Narrative [facility] - 02/07/2025 NSVT: 3 c/w AF/RVR and NSVT longest lasting 10s. V. Sensing Episodes: 330, longest 13s. Permanent AF. Patient on AC. Mode: VVIR. VISITOR INFORMATION ASSISTANT: 96%. Effective BiVP: 94%. Battery Nearing MEGAN with an estimated 5 month longevity. Device Advisory. Monthly battery checks. ADDENDUM: [facility]--s us Oj Cowart MD [facility] CARDIAC CATH ORDERABLE S Final Result Performing Organization Address [facility] de Phone Number [facility] [address] [place] [address] from Last 3 Months Insurance [place]ICARE [place] PART A AND B Member Subscriber Plan / Payer (Ef fective 2000-Present) Name:Richard Loyd Member ID:[id number] Relation to Subscriber:Self Name:Richard Loyd Subscriber ID:[id number] Payer ID:Not on file Group ID:Not on file Type:Not on file Address: [address] PPO MEDICARE [place] PART A AND B PPO Advance Directives For more information, please contact: [phone] * Full Code (Latest Code Status on File) Date Activated Date Inactivated Comments 02/20/2014 3:49 PM 02/24/2014 2:36 PM Care Teams Upholstery Trimmer Relationship Specialty Start Date End Date Car Hobbs MD [address] [place] [address] [address] [place] [id number] PCP - General Family Medicine 05/17/13 Riley Lara MD [address] [place] [address] [place] [address] Physician Internal Medicine-Cardiovascular Disease 05/12/11 Oj Cowart MD [address] [place] [address] [place] [address] Consulting Physician Internal Medicine - Clinical Cardiac Electrophysiology 02/05/16
--- OUTSIDE RECORDS SUMMARY | 2025-02-28 13:54 | XMS_ITS | Encounter Summary ---
Author Organization [place] [address] Care Team Providers Care Census Enumerator Name Role Phone Riley Lara MD Unavailable Car Hobbs MD Primary Care Provider [phone] Oj Cowart MD Unavailable [phone] Encounter Details Date Type Department Care Team (Late st Contact Info) Description 02/07/2025 Orders Only [facility] [address] [facility] [address] [place] [address] Oj Cowart MD [address] [place], [place] [phone] Vector Remote Device Social History Tobacco Use [...] No 02/24/2014 8:22 AM Marcello Ferro, ROD documented as of this encounter Mental Status [...] Office Visit [facility] [address] [place] [phone] 05/24/2025 2:00 PM EST Office Visit [facility] [address] [place] [address] Oj Cowart MD [address] [place] [address] [id number] documented as of this encounter Procedures Procedure Name Priority Date/Time Associated Diagnosis Comments [place] REM INTERROG ICPMS <30 D PHYS/QHP Routine 02/07/2025 Vector Remote Device documented in this encounter Results * VECTOR REMOTE HEART FAILURE DEVICE (02/07/2025) 02/07/2025 Narrative [facility] - 02/07/2025 Stable trend. us Oj Cowart MD [facility] CARDIAC CATH ORDERABLE S Final Result [facility] [address] [place] [address] documented in this encounter Visit Diagnoses Diagnosis Vector Remote Device documented in this encounter Additional Health Concerns Assessment Noted Time A fall risk assessment has been complete d for the patient 08/30/2023 12:54 PM EDT documented as of this encounter Care Teams Census Enumerator Relationship Specialty Start Date End Date Car Hobbs MD [address] [facility] [address] [place] [address] PCP - General Family Medicine 05/17/13 Riley Lara MD [address] [place] [address] [place] [address] Physician Internal Medicine-Cardiovascular Disease 05/12/11 Oj Cowart MD [address] [place] [address] [place] [address] Consulting Physician Internal Medicine - Clinical Cardiac Electrophysiology 02/05/16 documented as of this encounter
== END 2025-02-27 23:59 | disposition home or self-care (01) ==
LOC: LAB.DROPOF 02-28 13:38
PROVIDERS: PCP Nurse Practitioner; Visit Provider Family Medicine
DX: E03.9 Hypothyroidism, unspecified (principal); N28.9 Disorder of kidney and ureter, unspecified
CPT/HCPCS: 80053; 84443

== ENCOUNTER 2025-03-23 15:00 | Outpatient (CLI) | payer MEDICARE, BC, SELFPAY ==
--- OUTSIDE RECORDS SUMMARY | 2025-03-25 15:03 | XMS_ITS | Data Portability ---
Author Organization [facility] LEONIDAS Alvarez [place] [facility] Address [address] [facility] [address] [place] [address] Assessment No assessment recorded. Plan of Treatment [...] 9 Bladder Irrigation completed ADRIENNE MCCORMICK MD [address] [place] [address], [phone], [facility] 10/19/2018 14:11:56 Imaging Results None recorded. Procedure Notes None recorded. Medical Equipment None Reported. Allergies Allergen ID Allergen Name Allergen Category Reaction Reaction Severity Criticality Documentation Date Start Date Code Code System Note Provider Name and Address Organization Details Recorded Time 744940 acetamino phen / oxycodone medicatio n Not available Not available Not available 10/19/2018 [address]28[address] 3 [facility] 13:14:22 Medications Name Sig Start Date [...] Updated DateTime 10/19/2018 182.88 cm 25.9 kg/m2 72987.14 g cristi Long [facility] 10/19/2018 13:14:06 Social History Question Answer Notes LastModified by Organizat ion Details LastModified Time Tobacco Smoking Status Former Smoker Viola Long [facility] 10/19/2018 13:14:40 Marital Status Informatio n not available 10/19/2018 What Was The Date Of Your Most Recent Tobacco Screening? 10/19/2018 Information not available 06/06/2019 Sex: Unknown Functional Status Question Answer Note LastModified by Organization D etails LastModified Time What is your level of alcohol consumption? None Information not available 10/19/2018 Mental Status None recorded. Family History Relationship Description Onset Age of this Age Resolved Age Notes LastModified by Organization Details LastModified Time Father No current problems or disability Not available 10/19 13:14:30 Mother No current problems or disability Not available 10/19 13:14:30 Medical History Condition Response Heart Arrhythmia Y Pacemaker Y Heart Disease Y Past Encounters Encounter ID Performer Location Encounter Start Date Encounter Closed Date Diagnosis/Indication Diagnosis SNOMED-CT Code Diagnosis ICD10 Code Diagnosis IMO Codes Diagnosis Note [id number] [facility]ORMICK [facility] [address] [place] [address] 10/19/2018 12:10:04 10/24/2018 12:56:44 Benign prostatic hyperplasia with outflow obstruction 606701711 N40.1 Pt with very large prostate at [...] Recorded Advance Directives Directive None Recorded Payers Insurance Date Sequence Insurance Name Policy Number Policy Waddell Covered Member ID Waddell Member ID Guarantor Name 03/13/2020 1 [place] Richard Loyd [id number] Richard Loyd 03/13/2020 2 [employer]-[place] [id number] CROSS - FEP [id number] Richard Loyd [id number] Richard Loyd Notes Date Note Type Note Provider Name and Address Organization Details Recorded Time 10/19/2018 text/html ROS as noted in the HPI 83 y/o male presents today due to retention, he is s/p TURP 10/26/17 due to h/o BPH and retention. He states he was treated for a UTI on 10/01/18 and was treated with Keflex but went into retention shortly after. He went to the ER where a FC was placed. He denies any gross hematuria. He has no urinary complaints today. ADRINENE MCCORMICK MD [address], [place], [address], [facility] 10/19/2018 14:12:45
== END 2025-03-23 23:59 | disposition home or self-care (01) ==
LOC: LAB.DROPOF 03-25 15:01
PROVIDERS: PCP Nurse Practitioner; Visit Provider Nurse Practitioner Family
DX: R82.81 Pyuria (principal); R82.71 Bacteriuria
CPT/HCPCS: 87086; 87088; 87186